=== PATIENT | female | born 1940 | race Caucasian/White ===

== ENCOUNTER 2022-04-12 11:33 | Inpatient (IN) | payer MEDICARE ==
--- NOTE | 2022-04-12 12:13 | ED ---
General Adult HPI - General Chief complaint: Weakness Stated complaint: Weakness Time Seen by Provider: 04/12/22 11:36 Source: patient, family, EMS, RN notes reviewed Mode of arrival: EMS Limitations: no limitations - History of Present Illness Initial comments: Patient is a pleasant 82-year-old female presenting to the emergency Department with general weakness. Patient is unable to get up and walk around the past one week. Patient does have recent diagnosis of sciatica approximately 10 days ago. Patient states bilateral sacral area with discomfort. Patient is unable to get out of bed and walk around. A ojeda has had decreased appetite and decreased oral intake. No isolated area of weakness. Patient has had a couple of falls over the past couple of days. Patient is on Coumadin secondary to history of atrial fibrillation. - Related Data Allergies Allergy/AdvReac Type Severity Reaction Status Date / Time Sulfa (Sulfonamide Allergy Unknown Verified 04/12/22 12:27 Antibiotics) Review of Systems ROS Statement: Those systems with pertinent positive or pertinent negative responses have been documented in the HPI. ROS Other: All systems not noted in ROS Statement are negative. Constitutional: Denies: fever Eyes: Denies: eye pain ENT: Denies: ear pain Respiratory: Denies: cough Cardiovascular: Denies: chest pain Endocrine: Reports: fatigue Gastrointestinal: Reports: as per HPI Genitourinary: Denies: dysuria Musculoskeletal: Reports: as per HPI Skin: Denies: rash Neurological: Reports: as per HPI. Denies: headache, confusion Past Medical History Past Medical History: Atrial Fibrillation, Hypertension History of Any Multi-Drug Resistant Organisms: None Reported Additional Past Surgical History / Comment(s): open heart, valve replacement Past Psychological History: No Psychological Hx Reported Smoking Status: Never smoker Past Alcohol Use History: Occasional Past Drug Use History: None Reported General Exam Limitations: no limitations General appearance: alert, in no apparent distress Head exam: Present: normocephalic Eye exam: Present: normal appearance, PERRL, EOMI ENT exam: Present: mucous membranes dry Neck exam: Present: normal inspection Respiratory exam: Present: normal lung sounds bilaterally Cardiovascular Exam: Present: tachycardia, irregular rhythm GI/Abdominal exam: Present: soft. Absent: tenderness Extremities exam: Present: pedal edema. Absent: calf tenderness Back exam: Present: other (General sacral tenderness) Neurological exam: Present: alert, oriented X3, CN II-XII intact Expanded Neurological exam: Present: protecting the airway Speech: Present: fluid speech Cranial nerves: EOM's Intact: Normal Motor strength exam: RUE: 5, LUE: 5, RLE: 2/1, LLE: 2/1 Eye Response: (4) open spontaneously Motor Response: (6) obeys commands Verbal Response: (5) oriented Psychiatric exam: Present: normal affect, normal mood Skin exam: Present: other (Right lower leg skin tear, appears to be healing appropriately) Course Vital Signs 04/12/22 11:35 Temperature 97.9 F Pulse Rate 112 H Respiratory 20 Rate Blood Pressure 139/98 EKG Findings - EKG Comments: EKG Findings:: A. fib with RVR, rate 118. QRS 84. QT 274. QTC 344. Normal axis. Normal QRS. Nonspecific T waves. Medical Decision Making - Medical Decision Making Patient reevaluated. Patient and family updated on results and plan. Case was discussed with Dr. Sierra, who does recommend 10 units of vitamin K IV. He states large toe secondary to patient being dehydrated and likely deficient with vitamin K. He also requests consult with orthopedics, Dr. Kirkland and CT of the pelvis. Patient reevaluated. Patient and family updated. Family refuses CT stating patient had one recently at [facility]. We are attempting to obtain results. - Lab Data Result diagrams: 04/12/22 12:56 04/12/22 12:56 Lab Results 04/12/22 04/12/22 04/12/22 Range/Units 12:56 12:56 12:56 WBC 19.9 H (3.8-10.6) k/uL RBC 3.27 L (3.80-5.40) m/uL Hgb 9.3 L (11.4-16.0) gm/dL Hct 30.1 L (34.0-46.0) % MCV 91.8 (80.0-100.0) fL MCH 28.4 (25.0-35.0) pg MCHC 30.9 L (31.0-37.0) g/dL RDW 14.6 (11.5-15.5) % Plt Count 167 (150-450) k/uL MPV 12.0 Neutrophils % (Manual) 87 % Band Neuts % (Manual) 1 % Lymphocytes % (Manual) 10 % Monocytes % (Manual) 2 % Neutrophils # (Manual) 17.50 H (1.3-7.7) k/uL Lymphocytes # (Manual) 1.99 (1.0-4.8) k/uL Monocytes # (Manual) 0.40 (0-1.0) k/uL Nucleated RBCs 0 (0-0) /100 WBC Manual Slide Review Performed Polychromasia Present Hypochromasia Marked PT >130.0 H (9.0-12.0) sec INR >10.0 H* (<1.2) APTT 60.9 H (22.0-30.0) sec Sodium 137 (137-145) mmol/L Potassium 4.9 (3.5-5.1) mmol/L Chloride 105 (98-107) mmol/L Carbon Dioxide 27 (22-30) mmol/L Anion Gap 5 mmol/L BUN 25 H (7-17) mg/dL Creatinine 0.86 (0.52-1.04) mg/dL Est GFR (CKD-EPI)AfAm 72 (>60 ml/min/1.73 sqM) Est GFR (CKD-EPI)NonAf 63 (>60 ml/min/1.73 sqM) Glucose 121 H (74-99) mg/dL Plasma Lactic Acid Jayce (0.7-2.0) mmol/L Calcium 8.9 (8.4-10.2) mg/dL Phosphorus 3.1 (2.5-4.5) mg/dL Magnesium 2.2 (1.6-2.3) mg/dL Total Bilirubin 1.6 H (0.2-1.3) mg/dL AST 71 H (14-36) U/L ALT 28 (4-34) U/L Alkaline Phosphatase 64 (38-126) U/L Troponin I (0.000-0.034) ng/mL Total Protein 5.8 L (6.3-8.2) g/dL Albumin 3.2 L (3.5-5.0) g/dL TSH 0.310 L (0.465-4.680) mIU/L Free T4 1.39 (0.78-2.19) ng/dL Free T3 pg/mL 3.1 (2.8-5.3) pg/ml 04/12/22 04/12/22 Range/Units 12:56 12:56 WBC (3.8-10.6) k/uL RBC (3.80-5.40) m/uL Hgb (11.4-16.0) gm/dL Hct (34.0-46.0) % MCV (80.0-100.0) fL MCH (25.0-35.0) pg MCHC (31.0-37.0) g/dL RDW (11.5-15.5) % Plt Count (150-450) k/uL MPV Neutrophils % (Manual) % Band Neuts % (Manual) % Lymphocytes % (Manual) % Monocytes % (Manual) % Neutrophils # (Manual) (1.3-7.7) k/uL Lymphocytes # (Manual) (1.0-4.8) k/uL Monocytes # (Manual) (0-1.0) k/uL Nucleated RBCs (0-0) /100 WBC Manual Slide Review Polychromasia Hypochromasia PT (9.0-12.0) sec INR (<1.2) APTT (22.0-30.0) sec Sodium (137-145) mmol/L Potassium (3.5-5.1) mmol/L Chloride (98-107) mmol/L Carbon Dioxide (22-30) mmol/L Anion Gap mmol/L BUN (7-17) mg/dL Creatinine (0.52-1.04) mg/dL Est GFR (CKD-EPI)AfAm (>60 ml/min/1.73 sqM) Est GFR (CKD-EPI)NonAf (>60 ml/min/1.73 sqM) Glucose (74-99) mg/dL Plasma Lactic Acid Jayce 1.7 (0.7-2.0) mmol/L Calcium (8.4-10.2) mg/dL Phosphorus (2.5-4.5) mg/dL Magnesium (1.6-2.3) mg/dL Total Bilirubin (0.2-1.3) mg/dL AST (14-36) U/L ALT (4-34) U/L Alkaline Phosphatase (38-126) U/L Troponin I 0.034 (0.000-0.034) ng/mL Total Protein (6.3-8.2) g/dL Albumin (3.5-5.0) g/dL TSH (0.465-4.680) mIU/L Free T4 (0.78-2.19) ng/dL Free T3 pg/mL (2.8-5.3) pg/ml - Radiology Data Radiology results: image reviewed (Sacral x-ray shows likely normal variant. Two-view chest x-ray shows cardiomegaly with pulmonary venous congestion.) Disposition Clinical Impression: Weakness, Coagulopathy, Atrial fibrillation with RVR Disposition: ADMITTED IP TO THIS HOSP Condition: Serious Is patient prescribed a controlled substance at d/c from ED?: No Referrals: Facundo Griffin MD [Primary Care Provider] - 1-2 days Time of Disposition: 14:48
[2022-04-12 13:16] LABS: HCT 30.1 % (34.0-46.0); HGB 9.3 gm/dL (11.4-16.0); Hypochromasia Marked; MCH 28.4 pg (25.0-35.0); MCHC 30.9 g/dL (31.0-37.0); MCV 91.8 fL (80.0-100.0); Platelet Count 167 k/uL (150-450); RBC 3.27 m/uL (3.80-5.40); RDW 14.6 % (11.5-15.5); WBC 19.9 k/uL (3.8-10.6)
[2022-04-12] MEDS ORDERED: MORPHINE SULFATE 4 MG/ML SYRINGE IVP STA (13:22)
--- NOTE | 2022-04-12 13:35 | XR ---
EXAMINATION TYPE: XR chest 2V DATE OF EXAM: 04/12/2022 COMPARISON: NONE HISTORY: Shortness of breath TECHNIQUE: Frontal and lateral views of the chest are obtained. FINDINGS: Scattered senescent parenchymal changes noted. Hyperinflation compatible with COPD. There is cardiomegaly with pulmonary venous congestion scattered interstitial edema. No focal consoli dation seen. Mediastinal structures are stable and grossly unremarkable. No evidence for hilar prominence. Degenerative changes dorsal spine. IMPRESSION: 1. There is cardiomegaly with pulmonary venous congestion scattered interstitial edema. No focal cons olidation seen.
--- NOTE | 2022-04-12 13:43 | XR ---
EXAMINATION TYPE: XR sacrum coccyx DATE OF EXAM: 04/12/2022 CLINICAL HISTORY: pain TECHNIQUE: Three views of the sacrum and coccyx are submitted. COMPARISON: None Sacral alae appear symmetric. Angulation at the sacrococcygeal level likely reflects a normal variant . Obvious displaced fracture not seen with certainty. Correlate clinically. Sacroiliac joints are wit hin normal limits. Visualized coccygeal segments are free of fracture or lesion. IMPRESSION: . Angulation at the sacrococcygeal level likely reflects a normal variant. Obvious displa sotero fracture not seen with certainty. Correlate clinically.
[2022-04-12 13:52] LABS: Albumin 3.2 g/dL (3.5-5.0); Calcium 8.9 mg/dL (8.4-10.2); Magnesium 2.2 mg/dL (1.6-2.3); Phosphorus 3.1 mg/dL (2.5-4.5); Potassium 4.9 mmol/L (3.5-5.1); Total Bilirubin 1.6 mg/dL (0.2-1.3); Total Protein 5.8 g/dL (6.3-8.2)
[2022-04-12 13:57] LABS: Partial Thromboplastin Time 60.9 sec (22.0-30.0); Prothrombin Time >130.0 sec (9.0-12.0)
[2022-04-12 13:58] LABS: INR >10.0 (<1.2)
[2022-04-12 14:07] LABS: Band Neutrophils % 1 %; Lymphocytes # (M) 1.99 k/uL (1.0-4.8); Neutrophils % (M) 87 %; Nucleated Red Blood Cells 0 /100 WBC (0-0); Total Cells Counted 100
[2022-04-12 14:08] LABS: T4, Free (Free Thyroxine) 1.39 ng/dL (0.78-2.19)
[2022-04-12 14:09] LABS: Polychromasia Present
[2022-04-12] MEDS ORDERED: DILTIAZEM 5 MG/ML 5 ML VIAL IVP STA (14:58)
[2022-04-12] MEDS ORDERED: PHYTONADIONE 2 MG in SODIUM CHLORIDE 0.9% 50 ML IVPB STA (14:58)
[2022-04-12] MEDS ORDERED: NALOXONE 0.4 MG/ML 1 ML VIAL IV PRN (14:58)
[2022-04-12] MEDS ORDERED: MORPHINE SULFATE 4 MG/ML SYRINGE IV PRN (14:58)
[2022-04-12] MEDS ORDERED: PANTOPRAZOLE 40 MG/10 ML VIAL IV SCH (15:00)
--- NOTE | 2022-04-12 16:04 | CT ---
EXAMINATION TYPE: CT pelvis w con DATE OF EXAM: 04/12/2022 COMPARISON: None HISTORY: Sacral pain, coagulopathy. CT DLP: 1632.7 mGycm Automated exposure control for dose reduction was used. Contrast enhanced CT of the pelvis was perfor med. CONTRAST: Performed with IV Contrast, patient injected with 100 mL of Isovue 370. FINDINGS: There is a large partially imaged partially septated cystic mass which may arise from the left ovary although difficult to state with certainty. A Uterus is displaced from left to right. Measurements as noted on the [id number]-lcud included at least 21.9 cm craniocaudal dimension by 14.2 cm AP dimension by 25 cm transverse dimension. 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 No evidence for free fluid. No h ydronephrosis. Degenerative changes lumbar spine. Sacrococcygeal angulation without fracture. No discrete fracture o f the pelvis. 1.1 cm left inguinal lymph node. IMPRESSION: There is a large partially imaged partially septated cystic mass which may arise from the left ovary although difficult to state with certainty. 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
[2022-04-12 20:10] LABS: Appearance,Urine Clear (Clear); Bilirubin,Urine Negative (Negative); Blood,Urine Negative (Negative); Color,Urine Yellow; Glucose,Urine (UA) Negative (Negative); Ketones,Urine Negative (Negative); Leukocyte Esterase,Urine Small (Negative); Nitrite,Urine Negative (Negative); PH, Urine 6.5 (5.0-8.0); Protein,Urine Trace (Negative); RBC,Urine 2 /hpf (0-5); Specific Gravity,Urine 1.032 (1.001-1.035); Squamous Epithelial Cell,Urine <1 /hpf (0-4); Urobilinogen,Urine <2.0 mg/dL (<2.0); WBC,Urine 16 /hpf (0-5)
[2022-04-12 20:49] LABS: INR >10.0 (<1.2); Prothrombin Time >130.0 sec (9.0-12.0)
[2022-04-12] MEDS: METOPROLOL SUCCINATE (ER) 100 MG TAB.ER.24H PO SCH (21:59)
[2022-04-12] MEDS ORDERED: PHYTONADIONE 10 MG in SODIUM CHLORIDE 0.9% 50 ML IVPB STA (22:02)
[2022-04-12] MEDS ORDERED: ACETAMINOPHEN TAB 325 MG TAB PO PRN (22:04)
[2022-04-12] MEDS ORDERED: TEMAZEPAM 15 MG CAP PO PRN (22:04)
[2022-04-12] MEDS ORDERED: ONDANSETRON 4 MG/2 ML VIAL IVP PRN (22:04)
[2022-04-12] MEDS ORDERED: LORazepam 0.5 MG TAB PO PRN (22:04)
[2022-04-12] MEDS ORDERED: LACTULOSE 20 GM/30 ML CUP PO PRN (22:04)
[2022-04-12] MEDS ORDERED: CALCIUM CARBONATE 500 MG CHEWABLE PO PRN (22:04)
--- NOTE | 2022-04-12 22:17 | P.HPIM ---
History of Present Illness H&P Date: 04/12/22 Chief Complaint: Weakness This is a 82-year-old patient who follows with Dr. Facundo Griffin. Chronic stable medical conditions include obesity, atrial fibrillation, hypertension. Patient lives alone. About 9 days ago patient had a sinus infection. Started with nasal drainage. She has been somewhat on the floor. Next morning she slipped and fell. Bumped her head pretty hard. Not able to get up. Was taken to [facility]. She had L4 on the right lower extremity and Sri stitches in there. She was sent home. Patient does state that she is chronically off-balance. Since her return to the house she has been pretty much in bed for last 7 days. Barely eating and drinking. Significant bruising. Patient is chronically hard of hearing as "chronic tinnitus. No chest pain or palpitation. Patient denies any headache. No change in vision. No changes speech. No focal weakness. Review of systems: GEN.: Tired decreased appetite EYES: None HEENT: Hard of hearing with hearing aids NECK: None RESPIRATORY: None CARDIOVASCULAR: None GASTROINTESTINAL: None GENITOURINARY: None MUSCULOSKELETAL: [Some joint pains LYMPHATICS: None HEMATOLOGICAL: None PSYCHIATRY: None NEUROLOGICAL: Chronically off-balance when walking Past medical history to include: Atrial fibrillation, hypertension, valve replacement Social history: Nonsmoker. Lives alone. Occasional alcohol. Family history: Reviewed, noncontributory to presentation Physical examination: VITAL SIGNS: 97.9, 120, 18, 1 39 x 98, 95% room air GENERAL: BMI 35.2, laying in bed and awake, tired. Scattered bruising EYES: Pupils equal. Conjunctiva normal. HEENT: External appearance of nose and ears normal, oral cavity grossly normal. NECK: JVD unable to assess; masses not palpable. HEART: Heart sounds irregular; no edema. LUNGS: Respiratory rate normal; clear to auscultation. ABDOMEN: Soft, nontender, liver spleen not palpable, no masses palpable. PSYCH: Alert and oriented x3; mood and affect normal. MUSCULOSKELETAL:No Clubbing/cyanosis;muscles-grossly intact. Evidence of OA EXTREMITIES: Wound on the right lower extremity, with dressing NEUROLOGICAL: Cranial nerves grossly intact; no facial asymmetry, power and sensation grossly intact. LYMPHATICS: No lymph nodes palpable in the axilla and neck INVESTIGATIONS, reviewed in the clinical context: WBC is 19.9 hemoglobin 9.3 platelets 167 INR greater than 10 potassium 4.9 creatinine 0.86 Troponin I 0.034, 0.030 TSH 0.3 EKG tracing personally reviewed by me-atrial fibrillation, rate 118 Chest x-ray film personally reviewed by me-cardiomegaly, some venous prominence. CT pelvis with contrast: Large septated cystic mass 21.9 x 14.2 cm x 25 cm. 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 Assessment and plan: -Persistent atrial fibrillation, now presenting with rapid ventricle rate Toprol-XL 100 mg a day -Acute congestive heart failure exacerbation possibly precipitated by atrial fibrillation IV Lasix 20 mg every 12. 2-D echocardiogram. -Coumadin toxicity with severe bruising. Also patient has not been eating for 10 days to make him more vitamin K deficient. Patient received 2 mg of vitamin K in the ER. We'll give 10 mg IV piggyback over 15 minutes. Follow INR -Essential hypertension Toprol-XL 100 mg a day -Obesity BMI 35.2 Weight loss pressures -Large left-sided ovarian mass suspected. Consult TOPSTITCHER LOCKSTITCH 10 mg vitamin K. Follow INR. 2-D echo. IV Lasix. Resume home medications. Fall precautions. PT OT. Care was discussed the patient. Toprol-XL. Consult orthopedic spine given fall. An blunt injury to the spine. Given the complexity and severity of patient's condition expect the patient to be in the hospital at least for 2 overnights Past Medical History Past Medical History: Atrial Fibrillation, Hypertension History of Any Multi-Drug Resistant Organisms: None Reported Additional Past Surgical History / Comment(s): open heart, valve replacement Past Psychological History: No Psychological Hx Reported Smoking Status: Never smoker Past Alcohol Use History: Occasional Past Drug Use History: None Reported Medications and Allergies Home Medications Medication Instructions Recorded Confirmed Type Furosemide [Lasix] 20 mg PO BID 04/12/22 04/12/22 History Ipratropium [place] 0.06%Nasal 2 spr EA NOSTRIL BID PRN 04/12/22 04/12/22 History [Atrovent Nasal 0.06%] Irbesartan [Avapro] 75 mg PO DAILY 04/12/22 04/12/22 History Metoprolol Succinate (ER) [Toprol 100 mg PO DAILY 04/12/22 04/12/22 History Xl] Potassium Chloride [Potassium 10 meq PO BID 04/12/22 04/12/22 History Chloride ER] Warfarin Sodium 4 mg PO HS 04/12/22 04/12/22 History Allergies Allergy/AdvReac Type Severity Reaction Status Date / Time Sulfa (Sulfonamide AdvReac Agitation Verified 04/12/22 15:03 Antibiotics) Physical Exam Vitals: Vital Signs Temp Pulse Resp BP 04/12/22 11:35 97.9 F 112 H 20 139/98 Intake and Output 04/12/22 04/12/22 04/12/22 06:59 14:59 22:59 Other: Weight 108 kg Results CBC & Chem 7: 04/12/22 12:56 04/12/22 12:56 Labs: Abnormal Lab Results - Last 24 Hours (Table) 04/12/22 04/12/22 04/12/22 Range/Units 12:56 12:56 12:56 WBC 19.9 H (3.8-10.6) k/uL RBC 3.27 L (3.80-5.40) m/uL Hgb 9.3 L (11.4-16.0) gm/dL Hct 30.1 L (34.0-46.0) % MCHC 30.9 L (31.0-37.0) g/dL Neutrophils # (Manual) 17.50 H (1.3-7.7) k/uL PT >130.0 H (9.0-12.0) sec INR >10.0 H* (<1.2) APTT 60.9 H (22.0-30.0) sec BUN 25 H (7-17) mg/dL Glucose 121 H (74-99) mg/dL Total Bilirubin 1.6 H (0.2-1.3) mg/dL AST 71 H (14-36) U/L Total Protein 5.8 L (6.3-8.2) g/dL Albumin 3.2 L (3.5-5.0) g/dL TSH 0.310 L (0.465-4.680) mIU/L
[2022-04-12] MEDS: FUROSEMIDE 10 MG/ML 2 ML VIAL IV SCH (22:29)
[2022-04-12] MEDS: traMADol 50 MG TAB PO PRN (22:32)
[2022-04-13] MEDS: METOPROLOL SUCCINATE (ER) 100 MG TAB.ER.24H PO SCH (08:48)
[2022-04-13] MEDS: FUROSEMIDE 10 MG/ML 2 ML VIAL IV SCH (08:48)
[2022-04-13 09:41] LABS: Calcium 8.3 mg/dL (8.4-10.2); Potassium 4.6 mmol/L (3.5-5.1)
[2022-04-13 09:45] LABS: INR 2.7 (<1.2); Prothrombin Time 26.4 sec (9.0-12.0)
[2022-04-13 10:21] LABS: Basophils # (A) 0.1 k/uL (0-0.2); Basophils % (A) 1 %; Eosinophils # (A) 0.1 k/uL (0-0.7); Eosinophils % (A) 1 %; HCT 25.8 % (34.0-46.0); Hypochromasia Marked; Lymphocytes # (A) 1.8 k/uL (1.0-4.8); Lymphocytes % (A) 9 %; MCH 28.1 pg (25.0-35.0); MCHC 30.2 g/dL (31.0-37.0); MCV 93.1 fL (80.0-100.0); Mean Platelet Volume 11.9; Monocytes # (A) 1.2 k/uL (0-1.0); Monocytes % (A) 6 %; Neutrophils # (A) 17.4 k/uL (1.3-7.7); Neutrophils % (A) 83 %; RBC 2.77 m/uL (3.80-5.40); WBC 20.9 k/uL (3.8-10.6)
[2022-04-13 10:24] LABS: HGB 7.8 gm/dL (11.4-16.0)
[2022-04-13] MEDS ORDERED: PHYTONADIONE 5 MG in SODIUM CHLORIDE 0.9% 50 ML IVPB STA (11:12)
[2022-04-13 11:13] LABS: Polychromasia Present
[2022-04-13 11:14] LABS: Platelet Count 139 k/uL (150-450); Poikilocytosis (M) Present
--- NOTE | 2022-04-13 11:17 | P.CNOR ---
History of Present Illness - HPI Consult date: 04/13/22 Consult reason: other History of present illness: Patient is a pleasant 82-year-old female who was seen and examined at bedside. Apparently patient has been having great difficulty mobilizing and had a couple of falls over the past few weeks. She fell about 9 days ago and is having pain around her lower back and which she describes as sciatica pain worse on the right than the left. She denies any specific neurologic loss but she feels that her legs have significant difficulty holding her up and they give way. She has history of right knee severe arthritis. She denies any history of sciatica in the past at her lower extremity. She denies any changes in bowel bladder function. She is on anticoagulants for chronic atrial fibrillation and has significant bruising diffusely of her arms chest and legs. She has a laceration right lower extremity and chronic edema. She has bandages intact lower extremity. Review of Systems As per HPI. She denies any chest pain shortness of breath. She denies any fevers chills. Denies any changes in bowel bladder function. She denies any ovarian issues or rigorous problems. She denies any prior surgery at her abdomen. Past Medical History Past Medical History: Atrial Fibrillation, Hypertension, Musculoskeletal Disorder Additional Past Medical History / Comment(s): History of severe arthritis at the right knee History of Any Multi-Drug Resistant Organisms: None Reported Past Surgical History: Cardiac Valve Replacement Additional Past Surgical History / Comment(s): open heart, valve replacement Past Psychological History: No Psychological Hx Reported Smoking Status: Never smoker Past Alcohol Use History: Occasional Past Drug Use History: None Reported Medications and Allergies Home Medications Medication Instructions Recorded Confirmed Type Furosemide [Lasix] 20 mg PO BID 04/12/22 04/12/22 History Ipratropium [place] 0.06%Nasal 2 spr EA NOSTRIL BID PRN 04/12/22 04/12/22 History [Atrovent Nasal 0.06%] Irbesartan [Avapro] 75 mg PO DAILY 04/12/22 04/12/22 History Metoprolol Succinate (ER) [Toprol 100 mg PO DAILY 04/12/22 04/12/22 History Xl] Potassium Chloride [Potassium 10 meq PO BID 04/12/22 04/12/22 History Chloride ER] Warfarin Sodium 4 mg PO HS 04/12/22 04/12/22 History Allergies Allergy/AdvReac Type Severity Reaction Status Date / Time Sulfa (Sulfonamide AdvReac Agitation Verified 04/12/22 15:03 Antibiotics) Physical Examination Osteopathic Statement: *. No significant issues noted on an osteopathic struc tural exam other than those noted in the History and Physical/Consult. - L Spine: dermatomal strength & reflexes bilateral Strength: hip flexion: 4/5 (At her low back she is nontender to palpation. There is no open wounds lacerations or abrasions. She has ecchymosis over her chest and arms. At her legs she is nontender with internal and external rotation at her hips. She has sustained dorsal to plantar flexion and EHL. She is able to move her) Strength: hip extension: 5/5 (She is able to move her hips and knees while in bed but has some difficulty and some global weakness with this there is no focal obvious deficit.) Results - Labs Labs: Abnormal Lab Results - Last 24 Hours (Table) 04/12/22 04/12/22 04/12/22 Range/Units 12:56 12:56 12:56 WBC 19.9 H (3.8-10.6) k/uL RBC 3.27 L (3.80-5.40) m/uL Hgb 9.3 L (11.4-16.0) gm/dL Hct 30.1 L (34.0-46.0) % MCHC 30.9 L (31.0-37.0) g/dL Neutrophils # (Manual) 17.50 H (1.3-7.7) k/uL PT >130.0 H (9.0-12.0) sec INR >10.0 H* (<1.2) APTT 60.9 H (22.0-30.0) sec BUN 25 H (7-17) mg/dL Glucose 121 H (74-99) mg/dL Calcium (8.4-10.2) mg/dL Total Bilirubin 1.6 H (0.2-1.3) mg/dL AST 71 H (14-36) U/L Total Protein 5.8 L (6.3-8.2) g/dL Albumin 3.2 L (3.5-5.0) g/dL TSH 0.310 L (0.465-4.680) mIU/L Urine Protein (Negative) Ur Leukocyte Esterase (Negative) Urine WBC (0-5) /hpf 04/12/22 04/12/22 04/13/22 Range/Units 20:01 20:01 08:38 WBC 20.9 H (3.8-10.6) k/uL RBC 2.77 L (3.80-5.40) m/uL Hgb 7.8 L D (11.4-16.0) gm/dL Hct 25.8 L (34.0-46.0) % MCHC 30.2 L (31.0-37.0) g/dL Neutrophils # (Manual) (1.3-7.7) k/uL PT >130.0 H (9.0-12.0) sec INR >10.0 H* (<1.2) APTT (22.0-30.0) sec BUN (7-17) mg/dL Glucose (74-99) mg/dL Calcium (8.4-10.2) mg/dL Total Bilirubin (0.2-1.3) mg/dL AST (14-36) U/L Total Protein (6.3-8.2) g/dL Albumin (3.5-5.0) g/dL TSH (0.465-4.680) mIU/L Urine Protein Trace H (Negative) Ur Leukocyte Esterase Small H (Negative) Urine WBC 16 H (0-5) /hpf 04/13/22 04/13/22 Range/Units 08:38 08:38 WBC (3.8-10.6) k/uL RBC (3.80-5.40) m/uL Hgb (11.4-16.0) gm/dL Hct (34.0-46.0) % MCHC (31.0-37.0) g/dL Neutrophils # (Manual) (1.3-7.7) k/uL PT 26.4 H (9.0-12.0) sec INR 2.7 H (<1.2) APTT (22.0-30.0) sec BUN 32 H (7-17) mg/dL Glucose (74-99) mg/dL Calcium 8.3 L (8.4-10.2) mg/dL Total Bilirubin (0.2-1.3) mg/dL AST (14-36) U/L Total Protein (6.3-8.2) g/dL Albumin (3.5-5.0) g/dL TSH (0.465-4.680) mIU/L Urine Protein (Negative) Ur Leukocyte Esterase (Negative) Urine WBC (0-5) /hpf Microbiology - Last 24 Hours (Table) 04/12/22 20:01 Urine Culture - Preliminary Urine,Voided H & H 04/12/22 04/13/22 Range/Units 12:56 08:38 Hgb 9.3 L 7.8 L D (11.4-16.0) gm/dL Hct 30.1 L 25.8 L (34.0-46.0) % Coagulation 04/12/22 04/12/22 04/13/22 Range/Units 12:56 20:01 08:38 INR >10.0 H* >10.0 H* 2.7 H (<1.2) Result Diagrams: 04/13/22 08:38 04/13/22 08:38 - Diagnostic results CT Scan - lumbar: report reviewed (Computed tomography scan of the pelvis is reviewed. I don't see any obvious fracture or sacrum or lower lumbar spine. She does have some degenerative changes at her lumbar spine. 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 I think it is okay for her to try to mobilize with physical therapy and try to ambulate weightbearing as tolerated. I do not have plans for surgical intervention at her lumbar spine. The patient has a large ovarian mass which may be neoplastic. The history and physical had mentioned consult torque however there was not a order for that I will go ahead and put that order in for a PAPER BALER consultation to assess the mass. The mass may be putting some pressure on her psoas which could be contributing to her lower extremity function as well. The patient has significant ecchymosis and is working with medicine and cardiology for appropriate adjustments with her blood thinners. She'll continue medical management as well.
--- NOTE | 2022-04-13 15:43 | P.PN ---
Progress Note - Text Progress Note Date: 04/13/22 Chief Complaint: Weakness This is a 82-year-old patient who follows with Dr. Facundo Griffin. Chronic stable medical conditions include obesity, atrial fibrillation, hypertension. Patient lives alone. About 9 days ago patient had a sinus infection. Started with nasal drainage. She has been somewhat on the floor. Next morning she slipped and fell. Bumped her head pretty hard. Not able to get up. Was taken to [facility]. She had L4 on the right lower extremity and Sri stitches in there. She was sent home. Patient does state that she is chronically off-balance. Since her return to the house she has been pretty much in bed for last 7 days. Barely eating and drinking. Significant bruising. Patient is chronically hard of hearing as "chronic tinnitus. No chest pain or palpitation. Patient denies any headache. No change in vision. No changes speech. No focal weakness. Admitted with acute medical asthenia, Coumadin toxicity. April 13: Received 12 mg of vitamin K last night. Today's has enlarging hematoma on the right chest wall. INR down to 2.7. Cardiology give a further 5 mg vitamin K. 2 units of fresh frozen plasma also ordered. Care was discussed at length with the patient and daughter the bedside. Patient does state that in the past she's had a mitral valve and tricuspid valve repair and big valve replacement of the aortic valve. Also had atrial flutter fibrillation for which she is on anticoagulation. Eating better. Looking into rehab. Seen by from orthopedics. Remains in A. fib with a heart rate from 100. Active Medications Acetaminophen (Acetaminophen Tab 325 Mg Tab) 650 mg PO Q6HR PRN PRN Reason: Mild Pain or Fever > 100.5 Calcium Carbonate/Glycine (Calcium Carbonate 500 Mg Chewable) 1,000 mg PO Q4HR PRN PRN Reason: Dyspepsia Furosemide (Furosemide 40 Mg Tab) 40 mg PO DAILY HAIM Lactulose (Lactulose 20 Gm/30 Ml Cup) 20 gm PO DAILY PRN PRN Reason: Constipation Lorazepam (Lorazepam 0.5 Mg Tab) 0.5 mg PO Q6HR PRN PRN Reason: Anxiety Metoprolol Tartrate (Metoprolol Tartrate 50 Mg Tab) 50 mg PO TID HAIM Naloxone HCl (Naloxone 0.4 Mg/Ml 1 Ml Vial) 0.2 mg IV Q2M PRN PRN Reason: Opioid Reversal Ondansetron HCl (Ondansetron 4 Mg/2 Ml Vial) 4 mg IVP Q8HR PRN PRN Reason: Nausea And Vomiting Temazepam (Temazepam 15 Mg Cap) 15 mg PO HS PRN PRN Reason: Insomnia Tramadol HCl (Tramadol 50 Mg Tab) 50 mg PO Q6H PRN PRN Reason: Moderate Pain Last Admin: 04/12/22 22:32 Dose: 50 mg Past medical history to include: Atrial fibrillation, hypertension, valve replacement Social history: Nonsmoker. Lives alone. Occasional alcohol. Family history: Reviewed, noncontributory to presentation Physical examination: VITAL SIGNS: 97.7, 109, 16, 120/75, 97% room air GENERAL: laying in bed and awake, Scattered bruising DERMATOLOGICAL: Large right chest wall hematoma. EYES: Pupils equal. Conjunctiva normal. HEENT: External appearance of nose and ears normal, oral cavity grossly normal. NECK: JVD unable to assess; masses not palpable. HEART: Heart sounds irregular; no edema. LUNGS: Respiratory rate normal; clear to auscultation. ABDOMEN: Soft, nontender, liver spleen not palpable, no masses palpable. PSYCH: Alert and oriented x3; mood and affect normal. MUSCULOSKELETAL:No Clubbing/cyanosis;muscles-grossly intact. Evidence of OA EXTREMITIES: Wound on the right lower extremity, with dressing INVESTIGATIONS, reviewed in the clinical context: April 13: White count 20.9 hemoglobin 7.8 platelets 139 INR 2.7 potassium 4.6 creatinine 1.0 WBC is 19.9 hemoglobin 9.3 platelets 167 INR greater than 10 potassium 4.9 creatinine 0.86 Troponin I 0.034, 0.030 TSH 0.3 EKG tracing personally reviewed by me-atrial fibrillation, rate 118 Chest x-ray film personally reviewed by me-cardiomegaly, some venous prominence. CT pelvis with contrast: Large septated cystic mass 21.9 x 14.2 cm x 25 cm. 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 Assessment and plan: -Persistent atrial fibrillation, presenting with rapid ventricle rate: Heart rate around 100 this morning. Lupus increased to 50 mg 3 times a day. -Acute congestive heart failure exacerbation possibly precipitated by atrial fibrillation: Better By mouth Lasix 40 mg daily. 2-D echocardiogram. -History of mitral and tricuspid valve repair. Aortic valve replacement with pig valve. -Coumadin toxicity with severe bruising/right chest wall hematoma. Received 12 mg of vitamin K yesterday, 5 mg daily. 2 units of FFP ordered today. -Large hematoma right chest wall from Coumadin toxicity and fall Skin marked. Consult vascular -Acute blood loss anemia from hematoma. Hemodynamically stable. Follow H&H -Essential hypertension Toprol-XL 100 mg a day -Obesity BMI 35.2 Weight loss pressures -Large left-sided ovarian mass suspected. Consult [employer] EM[employer]ATE -Acute on chronic medical debility [employer] consult. 2 units of FFP. Dose of Lopressor increased. Care was discussed with the patient and daughter the bedside. Follow H&H
--- NOTE | 2022-04-13 15:51 | US ---
EXAMINATION TYPE: US pelvis complete transvag DATE OF EXAM: 04/13/2022 COMPARISON: CT 2021 CLINICAL HISTORY: pelvic mass. Pelvic mass seen on CT TECHNIQUE: . Transabdominal sonographic images of the pelvis were acquired. Exam done portable Exam done with patient laying on her side - refused to lay flat or lay on her back Bladder not full - ellington catheter 1. Uterus: not seen 2. Endometrium: not seen 3. Right Ovary: not seen 4. Left Ovary: not seen 5. Bilateral Adnexa: wnl 6. Posterior cul-de-sac: wnl 2.5.4 x 12.5cm complex mass seen midline pelvis extending upward to mid/upper abdomen - unable to d etermine etiology IMPRESSION: 1. 12.5 x 25.4 cm partially cystic mass involving the pelvis corresponding to the CT abnormality. Wit h consider tubo-ovarian etiology most likely in the differential diagnosis. Other etiologies not excl uded. Correlation with tumor serum markers recommended.
--- NOTE | 2022-04-13 16:29 | P.GSCN ---
History of Present Illness Consult date: 04/13/22 Reason for Consult: Chest hematoma Requesting physician: Greg Sierra History of present illness: This is a a pleasant 82-year-old female who presented to the emergency department yesterday with complaints of generalized weakness. Apparently she's not been able to get up and walk around in the last 1 week duration. She did have recent fall about a week to 2 weeks ago has a laceration with sutures to her right lower extremity. She came in with multiple bruises. She is on Coumadin for atrial fibrillation and states she has been taking her medication however has not been eating well. She was noted to have a supratherapeutic INR of greater than 10. She was given vitamin K repeat INR 2.7. She was also noted to be anemic on admission with a hemoglobin of 9.3 with a drop today to 7.8. She states that she did not have any recent falls in the last couple of days. Noticed increased bruising along her chest wall. She currently denies any shortness of breath or chest pain. Does have pain in her back. Denies any abdominal pain, nausea or vomiting. She's been afebrile. Labs: WBC 20.9 hemoglobin 7.8 hematocrit 25.8 platelet count 139,000 INR 2.7 sodium 137 potassium 4.6 BUN 32 creatinine 1.0 BNP 4940 Imaging: Chest x-ray reports cardiomegaly with pulmonary venous congestion scattered interstitial edema. No focal consolidation seen Sacrum and coccyx x-ray angulation at the sacrooccygeal level likely reflects normal variant. Obvious displaced fracture not seen with certainty. Correlate clinically. CT pelvis with contrast reports large partially imaged partially septated cystic mass which may arise from the left ovary although difficult to state with certainty. 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 With consider tubo-ovarian etiology most likely in the differential diagnosis. Other etiologies not excluded. Correlation with tumor serum markers recommended Review of Systems A 14 point review systems was completed all pertinent positives and negatives as stated in the HPI. Past Medical History Past Medical History: Atrial Fibrillation, Hypertension, Musculoskeletal Disorder Additional Past Medical History / Comment(s): History of severe arthritis at the right knee History of Any Multi-Drug Resistant Organisms: None Reported Past Surgical History: Cardiac Valve Replacement Additional Past Surgical History / Comment(s): open heart, valve replacement Past Psychological History: No Psychological Hx Reported Smoking Status: Never smoker Past Alcohol Use History: Occasional Past Drug Use History: None Reported Medications and Allergies Home Medications Medication Instructions Recorded Confirmed Type Furosemide [Lasix] 20 mg PO BID 04/12/22 04/12/22 History Ipratropium [place] 0.06%Nasal 2 spr EA NOSTRIL BID PRN 04/12/22 04/12/22 History [Atrovent Nasal 0.06%] Irbesartan [Avapro] 75 mg PO DAILY 04/12/22 04/12/22 History Metoprolol Succinate (ER) [Toprol 100 mg PO DAILY 04/12/22 04/12/22 History Xl] Potassium Chloride [Potassium 10 meq PO BID 04/12/22 04/12/22 History Chloride ER] Warfarin Sodium 4 mg PO HS 04/12/22 04/12/22 History Allergies Allergy/AdvReac Type Severity Reaction Status Date / Time Sulfa (Sulfonamide AdvReac Agitation Verified 04/12/22 15:03 Antibiotics) Surgical - Exam Vital Signs Temp Pulse Resp BP 97.9 F 112 H 20 139/98 04/12/22 11:35 04/12/22 11:35 04/12/22 11:35 04/12/22 11:35 General appearance: The patient is alert, oriented, appears in no acute distress. HET: Head is normocephalic and atraumatic. Pupils are equal and reactive. Neck: Supple without lymphadenopathy. Trachea midline. No audible carotid bruit. Heart: S1 S2. Regular rate and rhythm. Lungs: Clear to auscultation bilaterally. Chest: Chest wall with normal expansion. Significant bruising and hematoma noted on the chest greatest on the left chest wall and breast. Abdomen: Soft, nontender, nondistended. Extremities: Bilateral lower extremity edema. Dressing to the right lower extremity. Multiple bruises on extremities. Neurological: No focal deficits. Strength and sensation are grossly intact. Results - Labs 04/13/22 08:38 04/13/22 08:38 Abnormal Lab Results - Last 24 Hours (Table) 04/12/22 04/12/22 04/13/22 Range/Units 20:01 20:01 08:38 WBC 20.9 H (3.8-10.6) k/uL RBC 2.77 L (3.80-5.40) m/uL Hgb 7.8 L D (11.4-16.0) gm/dL Hct 25.8 L (34.0-46.0) % MCHC 30.2 L (31.0-37.0) g/dL Plt Count 139 L (150-450) k/uL Neutrophils # 17.4 H (1.3-7.7) k/uL Monocytes # 1.2 H (0-1.0) k/uL PT >130.0 H (9.0-12.0) sec INR >10.0 H* (<1.2) BUN (7-17) mg/dL Calcium (8.4-10.2) mg/dL Urine Protein Trace H (Negative) Ur Leukocyte Esterase Small H (Negative) Urine WBC 16 H (0-5) /hpf 04/13/22 04/13/22 Range/Units 08:38 08:38 WBC (3.8-10.6) k/uL RBC (3.80-5.40) m/uL Hgb (11.4-16.0) gm/dL Hct (34.0-46.0) % MCHC (31.0-37.0) g/dL Plt Count (150-450) k/uL Neutrophils # (1.3-7.7) k/uL Monocytes # (0-1.0) k/uL PT 26.4 H (9.0-12.0) sec INR 2.7 H (<1.2) BUN 32 H (7-17) mg/dL Calcium 8.3 L (8.4-10.2) mg/dL Urine Protein (Negative) Ur Leukocyte Esterase (Negative) Urine WBC (0-5) /hpf Microbiology - Last 24 Hours (Table) 04/12/22 20:01 Urine Culture - Preliminary Urine,Voided Diabetes panel 04/13/22 Range/Units 08:38 Sodium 137 (137-145) mmol/L Potassium 4.6 (3.5-5.1) mmol/L Chloride 105 (98-107) mmol/L Carbon Dioxide 25 (22-30) mmol/L BUN 32 H (7-17) mg/dL Creatinine 1.00 (0.52-1.04) mg/dL Glucose 98 (74-99) mg/dL Calcium 8.3 L (8.4-10.2) mg/dL Calcium panel 04/13/22 Range/Units 08:38 Calcium 8.3 L (8.4-10.2) mg/dL Pituitary panel 04/13/22 Range/Units 08:38 Sodium 137 (137-145) mmol/L Potassium 4.6 (3.5-5.1) mmol/L Chloride 105 (98-107) mmol/L Carbon Dioxide 25 (22-30) mmol/L BUN 32 H (7-17) mg/dL Creatinine 1.00 (0.52-1.04) mg/dL Glucose 98 (74-99) mg/dL Calcium 8.3 L (8.4-10.2) mg/dL Adrenal panel 04/13/22 Range/Units 08:38 Sodium 137 (137-145) mmol/L Potassium 4.6 (3.5-5.1) mmol/L Chloride 105 (98-107) mmol/L Carbon Dioxide 25 (22-30) mmol/L BUN 32 H (7-17) mg/dL Creatinine 1.00 (0.52-1.04) mg/dL Glucose 98 (74-99) mg/dL Calcium 8.3 L (8.4-10.2) mg/dL - Imaging Chest x-ray: report reviewed CT scan - pelvis: report reviewed US - pelvic: report reviewed Assessment and Plan Assessment: 1. Chest wall hematoma 2. Supratherapeutic INR 3. Normocytic normochromic anemia 4. Weakness 5. Inability to ambulate 6. Ovarian mass 7. History of recent fall 8. History of atrial fibrillation on coumadin Plan: 1. Continue symptomatic and supportive care 2. Apply ice packs to chest wall hematoma 3. Daily CBC, transfuse for hemoglobin less than 7 4. Hold Coumadin 5. Continue to treat supratherapeutic INR 6. No surgical intervention indicated at this time, continue to monitor hematoma 7. Continue medical management Thank you for this consultation, we will continue to follow. The impression and plan of care has been dictated as directed. Dr. Nelson I performed a history and examination of this patient, discussed the same with the dictator. I agree with the dictator's note ,documented as a scribe. Any additional findings or plans will be noted.
--- NOTE | 2022-04-13 17:21 | P.OBCN ---
History of Present Illness Consult date: 04/13/22 Reason for consult: pelvic mass (21 cm mass appreciated with septation) Chief complaint: ovarian mass with septation History of present illness: This is an 82-year-old female G0 that presented to the hospital on 04/12 after a fall at home. Patient does live alone with a family member, her niece that addresses her as mom checking and on her consistently. Her niece states that she has had 2 falls. Most recently about 9 days ago patient self diagnosed herself with a sinus infection and then noted increasing sciatica pain, she became weak and her niece was behind her as she felt the ground. He states that she fell twice that day. Patient was then taken to the hospital. Patient and CAT scan at the hospital revealing a large pelvic mass, 21x [id number]. the uterus is noted to be displaced left to right, on images. 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 History is taken from her niece. She states she is unsure when she went through menopause. Her knees states that about 2 weeks ago she was ambulating without difficulty some assistance was needed, mentation was normal. It is just since this admission that her mentation has decreased significantly along with her mobility. Review of Systems Constitutional: Reports fatigue Cardiovascular: Reports leg edema Respiratory: Denies dyspnea Past Medical History Past Medical History: Atrial Fibrillation, Hypertension, Musculoskeletal Disorder Additional Past Medical History / Comment(s): History of severe arthritis at the right knee History of Any Multi-Drug Resistant Organisms: None Reported Past Surgical History: Cardiac Valve Replacement Additional Past Surgical History / Comment(s): open heart, valve replacement Past Psychological History: No Psychological Hx Reported Smoking Status: Never smoker Past Alcohol Use History: Occasional Past Drug Use History: None Reported Medications and Allergies Home Medications Medication Instructions Recorded Confirmed Type Furosemide [Lasix] 20 mg PO BID 04/12/22 04/12/22 History Ipratropium [place] 0.06%Nasal 2 spr EA NOSTRIL BID PRN 04/12/22 04/12/22 History [Atrovent Nasal 0.06%] Irbesartan [Avapro] 75 mg PO DAILY 04/12/22 04/12/22 History Metoprolol Succinate (ER) [Toprol 100 mg PO DAILY 04/12/22 04/12/22 History Xl] Potassium Chloride [Potassium 10 meq PO BID 04/12/22 04/12/22 History Chloride ER] Warfarin Sodium 4 mg PO HS 04/12/22 04/12/22 History Allergies Allergy/AdvReac Type Severity Reaction Status Date / Time Sulfa (Sulfonamide AdvReac Agitation Verified 04/12/22 15:03 Antibiotics) Exam Osteopathic Statement: *. No significant issues noted on an osteopathic structural exam other than those noted in the History and Physical/Consult. Vital Signs Temp Pulse Pulse Resp BP BP Pulse Ox 04/13/22 13:05 97.7 F 109 H 16 120/75 97 04/13/22 08:31 98.0 F 107 H 16 116/62 93 L 04/13/22 04:00 98.0 F 109 H 16 120/74 95 04/13/22 02:00 120 H 18 04/12/22 22:20 97.9 F 120 H 18 117/67 94 L 04/12/22 19:00 114 H 18 154/92 Intake and Output 04/13/22 04/13/22 04/13/22 06:59 14:59 22:59 Other: Voiding Method External Catheter External Catheter Weight 106.5 kg Limited exam due to patient discomfort, on inspection of the patient she is her right side with a large amount of ecchymosis noted on her shoulder through her on her wrist and hand. Results Result Diagrams: 04/13/22 08:38 04/13/22 08:38 Abnormal Lab Results - Last 24 Hours (Table) 04/12/22 04/12/22 04/13/22 Range/Units 20:01 20:01 08:38 WBC 20.9 H (3.8-10.6) k/uL RBC 2.77 L (3.80-5.40) m/uL Hgb 7.8 L D (11.4-16.0) gm/dL Hct 25.8 L (34.0-46.0) % MCHC 30.2 L (31.0-37.0) g/dL Plt Count 139 L (150-450) k/uL Neutrophils # 17.4 H (1.3-7.7) k/uL Monocytes # 1.2 H (0-1.0) k/uL PT >130.0 H (9.0-12.0) sec INR >10.0 H* (<1.2) BUN (7-17) mg/dL Calcium (8.4-10.2) mg/dL Urine Protein Trace H (Negative) Ur Leukocyte Esterase Small H (Negative) Urine WBC 16 H (0-5) /hpf 04/13/22 04/13/22 Range/Units 08:38 08:38 WBC (3.8-10.6) k/uL RBC (3.80-5.40) m/uL Hgb (11.4-16.0) gm/dL Hct (34.0-46.0) % MCHC (31.0-37.0) g/dL Plt Count (150-450) k/uL Neutrophils # (1.3-7.7) k/uL Monocytes # (0-1.0) k/uL PT 26.4 H (9.0-12.0) sec INR 2.7 H (<1.2) BUN 32 H (7-17) mg/dL Calcium 8.3 L (8.4-10.2) mg/dL Urine Protein (Negative) Ur Leukocyte Esterase (Negative) Urine WBC (0-5) /hpf Microbiology - Last 24 Hours (Table) 04/12/22 20:01 Urine Culture - Preliminary Urine,Voided Assessment and Plan (1) Pelvic mass Current Visit: Yes Status: Acute Code(s): R19.00 - INTRA-ABD AND PELVIC SWELLING, MASS AND LUMP, UNSP SITE SNOMED Code(s): 48952250 Plan: 82-year-old 0 with incidental finding of large pelvic mass on computed tomography scan. Patient had a few falls at home presented to the hospital computed tomography scan was performed with above findings. Discussion with patient's family member "niece" about possibility of treatment. She believes they would not proceed with surgical intervention. Oval 1 was ordered, we'll need to await results. A test was explained to the niece and questions were answered. Discussion with her neice regarding surgical options, once again she states she doesn't believe she would proceed with these. I would like to follow-up with then raised regarding her oval 1 results, she is asked to call the office in approximately 2 weeks to discuss these results. Thank you for the consult, if you have any further questions regarding this patient's care please feel free to reach out
[2022-04-13 17:22] LABS: HCT 25.9 % (34.0-46.0); HGB 7.9 gm/dL (11.4-16.0); Hypochromasia Marked; MCH 28.8 pg (25.0-35.0); MCHC 30.7 g/dL (31.0-37.0); MCV 93.9 fL (80.0-100.0); Mean Platelet Volume 11.2; Platelet Count 217 k/uL (150-450); RBC 2.75 m/uL (3.80-5.40); RDW 15.5 % (11.5-15.5); WBC 24.6 k/uL (3.8-10.6)
--- NOTE | 2022-04-13 19:25 | CONS ---
CONSULTATION This is an 82-year-old lady who has her health care at [facility] under the care of Dr. Griffin and a cut off saw operator in the [place] area whose name she does not remember. She came to the emergency room with generalized weakness, unable to get up and walk. She has been having some sciatica for 10 days and she has bilateral sacral discomfort. After she came here to the hospital, she had bruising all over her body, including the chest, the neck, the arms and everywhere, and her INR was more than 10.0. She received two doses of vitamin K and her INR today is 2.7. She has chronic atrial fibrillation. She is status post aortic valve replacement with mitral valve repair done more than 10 years ago; details unavailable. She has no coronary disease. She follows up with her PCP for PT/INR checks. However, she has severe coagulopathy and unfortunately her hemoglobin has dropped nearly 2 grams and there is extensive bruising all over the body and she has kiran subcutaneous hematoma over her left breast. She is resting at the time of my evaluation. She is not in any significant distress. PAST MEDICAL HISTORY: 1. Chronic atrial fibrillation with a variable ventricular rate. 2. History of aortic valve replacement with a bioprosthetic valve and mitral valve repair. 3. History of hypertension. 4. History of diastolic heart failure. PHYSICAL EXAMINATION: On examination, blood pressure is 118/60, pulse rate is about 110, irregular. HEENT unremarkable. Fundus was not examined by me. Neck is supple. There is JVD of 1 cm. No carotid bruit. Heart exam reveals S1, S2 with irregular rhythm, short systolic murmur at the base and also left sternal border. There is extensive bruising. There is a subcutaneous hematoma over her left breast and in the left anterior chest wall. Abdomen has a lot of bruising. Lower extremities reveal diminished pulses. Central nervous system grossly no focal deficits. EKG revealed atrial fibrillation, moderate ventricular rate, nonspecific ST-T changes. LABORATORY DATA: Laboratory data revealed an initial hemoglobin of 9.3, repeat hemoglobin of 7.8. Initial INR of more than 10; after two dose of vitamin K, INR is 2.7. IMPRESSION: 1. Coagulopathy with chest wall hematoma, subcutaneous hematoma. 2. Chronic atrial fibrillation. 3. Status post aortic valve replacement and mitral valve repair. She has a tissue valve. This was done at [facility] more than 10 years ago; details unavailable. RECOMMENDATIONS: I explained to the patient the concerns and issues that we have with her coagulopathy. I am recommending that we will give her one more dose of vitamin K 5 mg subcutaneously, place her on metoprolol tartrate 50 mg t.i.d. for rate control, Lasix 40 mg every morning. Echocardiogram to assess LV function . We will monitor her hemoglobin closely. I discussed my thoughts in detail with the patient and daughter. Prognosis is guarded. MMODL / IJN: [id number] /
[2022-04-13] MEDS: traMADol 50 MG TAB PO PRN (22:38)
--- NOTE | 2022-04-14 05:13 | P.CONS ---
History of Present Illness - Chief Complaint Medical debility - History of Present Illness I had the opportunity to see patient for inpatient rehab consultation with regard to medical debility. Patient admitted to Dr. Sierra April 12 with generalized weakness of one week's duration. Noted coagulopathy, atrial fibrillation with RVR. Seen by Dr. Kirkland who doubts spinal fracture. Computed tomography scan of pelvis demonstrates left ovarian large cystic mass. Sacrum and coccyx x-ray demonstrates normal variant sacrococcygeal ligament. Chest x- ray with cardiomegaly and congestion. Has started therapy. PT reports maximal to total assistance for bed mobility. OT reports independent for feeding, s upervision for grooming. Unable to participate with lower dressing toileting or functional mobility. Both therapies recommending SNF placement. Previous functional history unobtainable from patient. Review of Systems Review of systems: ENT: Denies sneezes or discharge. Eyes: Denies discharge or photophobia. Cardiac: Denies chest pain or palpitation. Pulmonary: Denies cough or shortness of breath. Breast: Denies discharge or lumps. Gastrointestinal: Denies nausea, emesis, constipation, diarrhea. Genitourinary: Denies discharge or frequency. Musculoskeletal: Denies muscle or bone aches. Neurologic: Sleepiness/lethargy and generalized weakness. Endocrine: Denies shakes or sweats. Oncology: Denies cancers. Dermatologic: Denies rash, itching, pruritus. ALLERGY/immunology: Denies sneezes, rashes. Past Medical History Past Medical History: Atrial Fibrillation, Hypertension, Musculoskeletal Disorder Additional Past Medical History / Comment(s): History of severe arthritis at the right knee History of Any Multi-Drug Resistant Organisms: None Reported Past Surgical History: Cardiac Valve Replacement Additional Past Surgical History / Comment(s): open heart, valve replacement Past Psychological History: No Psychological Hx Reported Smoking Status: Never smoker Past Alcohol Use History: Occasional Past Drug Use History: None Reported Medications and Allergies Home Medications Medication Instructions Recorded Confirmed Type Furosemide [Lasix] 20 mg PO BID 04/12/22 04/12/22 History Ipratropium [place] 0.06%Nasal 2 spr EA NOSTRIL BID PRN 04/12/22 04/12/22 History [Atrovent Nasal 0.06%] Irbesartan [Avapro] 75 mg PO DAILY 04/12/22 04/12/22 History Metoprolol Succinate (ER) [Toprol 100 mg PO DAILY 04/12/22 04/12/22 History Xl] Potassium Chloride [Potassium 10 meq PO BID 04/12/22 04/12/22 History Chloride ER] Warfarin Sodium 4 mg PO HS 04/12/22 04/12/22 History Allergies Allergy/AdvReac Type Severity Reaction Status Date / Time Sulfa (Sulfonamide AdvReac Agitation Verified 04/12/22 15:03 Antibiotics) Physical Exam Vitals: Vital Signs Temp Pulse Pulse Resp BP BP Pulse Ox 04/14/22 04:00 98.2 F 99 18 117/76 91 L 04/14/22 02:22 98.2 F 96 18 102/63 94 L 04/14/22 02:00 18 04/14/22 00:50 97 18 107/61 95 04/14/22 00:40 98.4 F 90 18 107/67 96 04/14/22 00:28 91 18 102/63 93 L 04/13/22 23:37 98.1 F 90 20 109/57 04/13/22 23:07 111 H 18 114/70 04/13/22 22:57 98.4 F 117 H 20 116/68 04/13/22 20:00 98.4 F 120 H 18 114/74 94 L 04/13/22 17:11 98.2 F 119 H 16 116/62 99 04/13/22 13:05 97.7 F 109 H 16 120/75 97 04/13/22 08:31 98.0 F 107 H 16 116/62 93 L Intake and Output 04/13/22 04/13/22 04/14/22 14:59 22:59 06:59 Intake Total 0 433 Output Total 900 400 Balance -900 33 Intake: Blood Product 0 433 Ffp 24 Pher Acda Unit 0 217 [id number] Ffp 24 Pher Acda Unit 216 [id number] Output: Urine 900 400 Other: Voiding Method External Catheter External Catheter External Catheter Weight 106.5 kg Skin: Good color, texture, turgor. General: Medium build and comfortable appearance. Head: Normocephalic, atraumatic. Eyes: Symmetric. Pupils equal round. Ears: Symmetric. Hearing within normal limits. Mouth: Clear. Neck: Supple. Carotid without bruit. Cardiac: Regular rate and rhythm. Lungs: Clear anteriorly and posteriorly. Abdomen: Soft active nontender. Extremities: Normal tone. Neurological: Mental status: Sleepiness/lethargy. Cranial nerves: Symmetric facial tone and trapezius. Motor/sensation: Poor response to noxious stimulus locally. DTRs: Symmetric and equal throughout. Mobility: Unable to participate with bed mobility. Results CBC & Chem 7: 04/13/22 16:48 04/13/22 08:38 Labs: Abnormal Lab Results - Last 24 Hours (Table) 04/13/22 04/13/22 04/13/22 Range/Units 08:38 08:38 08:38 WBC 20.9 H (3.8-10.6) k/uL RBC 2.77 L (3.80-5.40) m/uL Hgb 7.8 L D (11.4-16.0) gm/dL Hct 25.8 L (34.0-46.0) % MCHC 30.2 L (31.0-37.0) g/dL Plt Count 139 L (150-450) k/uL Neutrophils # 17.4 H (1.3-7.7) k/uL Monocytes # 1.2 H (0-1.0) k/uL PT 26.4 H (9.0-12.0) sec INR 2.7 H (<1.2) BUN 32 H (7-17) mg/dL Calcium 8.3 L (8.4-10.2) mg/dL 04/13/22 Range/Units 16:48 WBC 24.6 H (3.8-10.6) k/uL RBC 2.75 L (3.80-5.40) m/uL Hgb 7.9 L (11.4-16.0) gm/dL Hct 25.9 L (34.0-46.0) % MCHC 30.7 L (31.0-37.0) g/dL Plt Count (150-450) k/uL Neutrophils # (1.3-7.7) k/uL Monocytes # (0-1.0) k/uL PT (9.0-12.0) sec INR (<1.2) BUN (7-17) mg/dL Calcium (8.4-10.2) mg/dL Microbiology - Last 24 Hours (Table) 04/12/22 20:01 Urine Culture - Preliminary Urine,Voided Assessment and Plan (1) Atrial fibrillation with RVR Current Visit: Yes Status: Acute Code(s): I48.91 - UNSPECIFIED ATRIAL FIBRILLATION SNOMED Code(s): 878939380504506 (2) Coagulopathy Current Visit: Yes Status: Acute Code(s): D68.9 - COAGULATION DEFECT, UNSPECIFIED SNOMED Code(s): 27571253 (3) Pelvic mass Current Visit: Yes Status: Acute Code(s): R19.00 - INTRA-ABD AND PELVIC SWELLING, MASS AND LUMP, UNSP SITE SNOMED Code(s): 64203852 (4) Weakness Current Visit: Yes Status: Acute Code(s): R53.1 - WEAKNESS SNOMED Code(s): 09623905 Plan: Comments and plan: At this time patient has generalized weakness and poor mentation and would be unable to participate or benefit from a full inpatient rehab program. She'll begin to consider alternative discharge plan. Therapies recommended SNF placement and would agree. We'll continue to follow with yourself though.
[2022-04-14 08:03] LABS: INR 1.3 (<1.2); Prothrombin Time 13.5 sec (9.0-12.0)
[2022-04-14 08:04] LABS: Basophils # (A) 0.1 k/uL (0-0.2); Basophils % (A) 1 %; Eosinophils # (A) 0.1 k/uL (0-0.7); Eosinophils % (A) 1 %; HCT 23.3 % (34.0-46.0); HGB 7.1 gm/dL (11.4-16.0); Hypochromasia Marked; Lymphocytes % (A) 10 %; MCH 28.5 pg (25.0-35.0); MCHC 30.4 g/dL (31.0-37.0); MCV 93.7 fL (80.0-100.0); Mean Platelet Volume 10.4; Monocytes # (A) 0.8 k/uL (0-1.0); Monocytes % (A) 4 %; Neutrophils # (A) 16.4 k/uL (1.3-7.7); Neutrophils % (A) 83 %; Platelet Count 205 k/uL (150-450); RBC 2.48 m/uL (3.80-5.40); RDW 15.6 % (11.5-15.5); WBC 19.7 k/uL (3.8-10.6)
[2022-04-14 08:24] LABS: Potassium 4.5 mmol/L (3.5-5.1); Total Bilirubin 2.6 mg/dL (0.2-1.3); Total Protein 5.4 g/dL (6.3-8.2)
[2022-04-14] MEDS: FUROSEMIDE 40 MG TAB PO SCH (09:58)
[2022-04-14] MEDS: METOPROLOL TARTRATE 50 MG TAB PO SCH ×3 (09:58→21:16)
--- NOTE | 2022-04-14 12:55 | P.PN ---
Subjective Progress Note Date: 04/14/22 Principal diagnosis: Chest wall hematoma This is a pleasant 82-year-old female who presented to the emergency department with weakness and a supratherapeutic INR. She has had multiple bruises on her body. She has a history of a recent fall in the last 1-2 weeks. She has a lar ge chest wall hematoma. No acute changes through the night. She did have a drop in her hemoglobin to 7.1. Objective - Vital Signs Vital signs: Vital Signs Temp 98.2 F 04/14/22 04:00 Pulse 99 04/14/22 04:00 Resp 18 04/14/22 04:00 BP 117/76 04/14/22 04:00 Pulse Ox 91 L 04/14/22 04:00 FiO2 Intake & Output 04/13/22 04/14/22 04/14/22 18:59 06:59 18:59 Intake Total 433 Output Total 900 600 Balance -900 -167 Weight 106.5 kg Intake: Blood Product 433 Ffp 24 Pher Acda Unit 217 [id number] Ffp 24 Pher Acda Unit 216 [id number] Output: Urine 900 600 Other: Voiding Method External Catheter External Catheter - Exam General appearance: The patient is alert, oriented, appears in no acute distress. HET: Head is normocephalic and atraumatic. Pupils are equal and reactive. Neck: Supple without lymphadenopathy. Trachea midline. Heart: S1 S2. Regular rate and rhythm. Lungs: Clear to auscultation bilaterally. Chest: Chest wall with normal expansion. Significant bruising and hematoma noted on the chest greatest on the left chest wall and breast. Abdomen: Soft, nontender, nondistended. Extremities: Bilateral lower extremity edema. Dressing to the right lower extremity. Multiple bruises on extremities. Neurological: No focal deficits. Strength and sensation are grossly intact. - Labs CBC & Chem 7: 04/14/22 07:33 04/14/22 07:33 Labs: Abnormal Lab Results - Last 24 Hours (Table) 04/13/22 04/13/22 04/13/22 Range/Units 08:38 08:38 08:38 WBC 20.9 H (3.8-10.6) k/uL RBC 2.77 L (3.80-5.40) m/uL Hgb 7.8 L D (11.4-16.0) gm/dL Hct 25.8 L (34.0-46.0) % MCHC 30.2 L (31.0-37.0) g/dL RDW (11.5-15.5) % Plt Count 139 L (150-450) k/uL Neutrophils # 17.4 H (1.3-7.7) k/uL Monocytes # 1.2 H (0-1.0) k/uL PT 26.4 H (9.0-12.0) sec INR 2.7 H (<1.2) Sodium (137-145) mmol/L BUN 32 H (7-17) mg/dL Creatinine (0.52-1.04) mg/dL Glucose (74-99) mg/dL Calcium 8.3 L (8.4-10.2) mg/dL Total Bilirubin (0.2-1.3) mg/dL AST (14-36) U/L Total Protein (6.3-8.2) g/dL Albumin (3.5-5.0) g/dL 04/13/22 04/14/22 04/14/22 Range/Units 16:48 07:33 07:33 WBC 24.6 H 19.7 H (3.8-10.6) k/uL RBC 2.75 L 2.48 L (3.80-5.40) m/uL Hgb 7.9 L 7.1 L (11.4-16.0) gm/dL Hct 25.9 L 23.3 L (34.0-46.0) % MCHC 30.7 L 30.4 L (31.0-37.0) g/dL RDW 15.6 H (11.5-15.5) % Plt Count (150-450) k/uL Neutrophils # 16.4 H (1.3-7.7) k/uL Monocytes # (0-1.0) k/uL PT 13.5 H (9.0-12.0) sec INR 1.3 H (<1.2) Sodium (137-145) mmol/L BUN (7-17) mg/dL Creatinine (0.52-1.04) mg/dL Glucose (74-99) mg/dL Calcium (8.4-10.2) mg/dL Total Bilirubin (0.2-1.3) mg/dL AST (14-36) U/L Total Protein (6.3-8.2) g/dL Albumin (3.5-5.0) g/dL 04/14/22 Range/Units 07:33 WBC (3.8-10.6) k/uL RBC (3.80-5.40) m/uL Hgb (11.4-16.0) gm/dL Hct (34.0-46.0) % MCHC (31.0-37.0) g/dL RDW (11.5-15.5) % Plt Count (150-450) k/uL Neutrophils # (1.3-7.7) k/uL Monocytes # (0-1.0) k/uL PT (9.0-12.0) sec INR (<1.2) Sodium 134 L (137-145) mmol/L BUN 40 H (7-17) mg/dL Creatinine 1.31 H (0.52-1.04) mg/dL Glucose 103 H (74-99) mg/dL Calcium 8.0 L (8.4-10.2) mg/dL Total Bilirubin 2.6 H (0.2-1.3) mg/dL AST 71 H (14-36) U/L Total Protein 5.4 L (6.3-8.2) g/dL Albumin 3.0 L (3.5-5.0) g/dL Assessment and Plan Assessment: 1. Chest wall hematoma 2. Supratherapeutic INR 3. Normocytic normochromic anemia 4. Weakness 5. Inability to ambulate 6. Ovarian mass 7. History of recent fall 8. History of atrial fibrillation on coumadin Plan: 1. Continue symptomatic and supportive care 2. Apply ice packs to chest wall hematoma 3. Daily CBC, 4. Give 1 unit PRBC 5. Hold Coumadin 6. Continue to treat supratherapeutic INR 7. No surgical intervention indicated at this time, continue to monitor hematoma 8. Continue medical management Thank you for this consultation, we will continue to follow. The impression and plan of care has been dictated as directed. Dr. Cheng I performed a history and examination of this patient, discussed the same with the dictator. I agree with the dictator's note ,documented as a scribe. Any additional findings or plans will be noted.
--- NOTE | 2022-04-14 15:26 | P.PN ---
Progress Note - Text Progress Note Date: 04/14/22 Chief Complaint: Weakness This is a 82-year-old patient who follows with Dr. Facundo Griffin. Chronic stable medical conditions include obesity, atrial fibrillation, hypertension. Patient lives alone. About 9 days ago patient had a sinus infection. Started with nasal drainage. She has been somewhat on the floor. Next morning she slipped and fell. Bumped her head pretty hard. Not able to get up. Was taken to [facility]. She had L4 on the right lower extremity and Sri stitches in there. She was sent home. Patient does state that she is chronically off-balance. Since her return to the house she has been pretty much in bed for last 7 days. Barely eating and drinking. Significant bruising. Patient is chronically hard of hearing as "chronic tinnitus. No chest pain or palpitation. Patient denies any headache. No change in vision. No changes speech. No focal weakness. Admitted with acute medical asthenia, Coumadin toxicity. April 13: Received 12 mg of vitamin K last night. Today's has enlarging hematoma on the right chest wall. INR down to 2.7. Cardiology give a further 5 mg vitamin K. 2 units of fresh frozen plasma also ordered. Care was discussed at length with the patient and daughter the bedside. Patient does state that in the past she's had a mitral valve and tricuspid valve repair and big valve replacement of the aortic valve. Also had atrial flutter fibrillation for which she is on anticoagulation. Eating better. Looking into rehab. Seen by from orthopedics. Remains in A. fib with a heart rate from 100. April 14: Hematoma present. Hemoglobin 7.1. One unit blood ordered. INR 1.3. Oral intake fair. Active Medications Acetaminophen (Acetaminophen Tab 325 Mg Tab) 650 mg PO Q6HR PRN PRN Reason: Mild Pain or Fever > 100.5 Calcium Carbonate/Glycine (Calcium Carbonate 500 Mg Chewable) 1,000 mg PO Q4HR PRN PRN Reason: Dyspepsia Furosemide (Furosemide 40 Mg Tab) 40 mg PO DAILY [facility] Last Admin: 04/14/22 09:58 Dose: 40 mg Lactulose (Lactulose 20 Gm/30 Ml Cup) 20 gm PO DAILY PRN PRN Reason: Constipation Lorazepam (Lorazepam 0.5 Mg Tab) 0.5 mg PO Q6HR PRN PRN Reason: Anxiety Metoprolol Tartrate (Metoprolol Tartrate 50 Mg Tab) 50 mg PO TID HAIM Last Admin: 04/14/22 09:58 Dose: 50 mg Naloxone HCl (Naloxone 0.4 Mg/Ml 1 Ml Vial) 0.2 mg IV Q2M PRN PRN Reason: Opioid Reversal Ondansetron HCl (Ondansetron 4 Mg/2 Ml Vial) 4 mg IVP Q8HR PRN PRN Reason: Nausea And Vomiting Temazepam (Temazepam 15 Mg Cap) 15 mg PO HS PRN PRN Reason: Insomnia Last Admin: 04/13/22 22:38 Dose: 15 mg Tramadol HCl (Tramadol 50 Mg Tab) 50 mg PO Q6H PRN PRN Reason: Moderate Pain Last Admin: 04/13/22 22:38 Dose: 50 mg Past medical history to include: Atrial fibrillation, hypertension, valve replacement Social history: Nonsmoker. Lives alone. Occasional alcohol. Family history: Reviewed, noncontributory to presentation Physical examination: VITAL SIGNS: 97.6, 90, 16, 106/60, 100% on 2 L GENERAL: laying in bed and awake, Scattered bruising DERMATOLOGICAL: Large chest wall hematoma. EYES: Pupils equal. Conjunctiva normal. HEENT: External appearance of nose and ears normal, oral cavity grossly normal. NECK: JVD unable to assess; masses not palpable. HEART: Heart sounds irregular; no edema. LUNGS: Respiratory rate normal; clear to auscultation. ABDOMEN: Soft, nontender, liver spleen not palpable, no masses palpable. PSYCH: Alert and oriented x3; mood and affect normal. MUSCULOSKELETAL:No Clubbing/cyanosis;muscles-grossly intact. Evidence of OA EXTREMITIES: Wound on the right lower extremity, with dressing INVESTIGATIONS, reviewed in the clinical context: April 14: WBC 19.7 hemoglobin 7.1 platelets 205 INR 1.3 progression 4.5 creatinine 1.31 Pelvic ultrasound: 12.5 x 25.4 cm partially cystic mass involving the pelvis. Possibly 2 more related etiology. April 13: White count 20.9 hemoglobin 7.8 platelets 139 INR 2.7 potassium 4.6 creatinine 1.0 WBC is 19.9 hemoglobin 9.3 platelets 167 INR greater than 10 potassium 4.9 creatinine 0.86 Troponin I 0.034, 0.030 TSH 0.3 EKG tracing personally reviewed by me-atrial fibrillation, rate 118 Chest x-ray film personally reviewed by me-cardiomegaly, some venous prominence. CT pelvis with contrast: Large septated cystic mass 21.9 x 14.2 cm x 25 cm. 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 Assessment and plan: -Persistent atrial fibrillation, presenting with rapid ventricle rate: Heart rate around 100 this morning. Lupus increased to 50 mg 3 times a day. -Acute congestive heart failure exacerbation possibly precipitated by atrial fibrillation: Better By mouth Lasix 40 mg daily. -History of mitral and tricuspid valve repair. Aortic valve replacement with pig valve. -Coumadin toxicity with severe bruising/right chest wall hematoma. Received vitamin K and FFP -Large hematoma chest wall from Coumadin toxicity and fall Skin marked. Seen by vascular. Conservative management. -Acute blood loss anemia from hematoma. Hemodynamically stable. 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 Seen by . Ova 1 requested. Patient and family don't want any surgical intervention. We'll follow up outpatient -Acute on chronic medical debility 4 rehab 1 unit of blood ordered. Other medications to continue. Discussed with vascular. Not for any further intervention. Keep off anticoagulations for now. Patient and family don't want any surgical intervention for the tubo-ovarian mass. We will follow outpatient with . Total time spent about 40 minutes with over 25 minutes of discussion.
--- NOTE | 2022-04-14 19:50 | PN ---
PROGRESS NOTE Mrs. Lancaster is 82 years of age, has aortic valve replacement, mitral valve repair, atrial fibrillation; came in with coagulopathy with INR of more than 10. Hemoglobin has dropped further. She received 2 units of fresh frozen plasma yesterday. Her INR is actually 1.3. She is doing well. Hopefully the bleeding has stopped. We will continue to follow hemoglobin and I am recommending that she should not be on Coumadin, even though she has multiple issues. She has bruising all over the body. There is a hematoma of the left anterior chest wall over her left breast. Vitals are stable. S1, S2 with irregular rhythm noted. Short systolic murmur noted. Lungs revealed diminished air entry. Abdomen and lower extremity exam otherwise is unchanged. Plan is to continue current medical regimen and monitor hemoglobin. Prognosis remains guarded. MMODL / IJN: [id number] /
[2022-04-14 20:56] LABS: HGB 7.8 gm/dL (11.4-16.0); Hypochromasia Marked; MCH 27.8 pg (25.0-35.0); MCV 92.5 fL (80.0-100.0); Mean Platelet Volume 11.3; Platelet Count 205 k/uL (150-450); RBC 2.82 m/uL (3.80-5.40); RDW 15.9 % (11.5-15.5); WBC 19.8 k/uL (3.8-10.6)
[2022-04-15] MEDS ORDERED: ALBUTEROL NEBULIZED 2.5 MG/3 ML INHALATION PRN (00:56)
[2022-04-15 08:13] LABS: Basophils # (A) 0.1 k/uL (0-0.2); Basophils % (A) 0 %; Eosinophils # (A) 0.3 k/uL (0-0.7); Eosinophils % (A) 2 %; HCT 24.2 % (34.0-46.0); Hypochromasia Marked; Lymphocytes # (A) 1.5 k/uL (1.0-4.8); Lymphocytes % (A) 10 %; MCH 26.9 pg (25.0-35.0); MCHC 29.1 g/dL (31.0-37.0); MCV 92.5 fL (80.0-100.0); Mean Platelet Volume 10.3; Monocytes # (A) 0.7 k/uL (0-1.0); Monocytes % (A) 5 %; Neutrophils # (A) 12.1 k/uL (1.3-7.7); Neutrophils % (A) 82 %; Platelet Count 183 k/uL (150-450); RBC 2.61 m/uL (3.80-5.40); RDW 15.9 % (11.5-15.5); WBC 14.7 k/uL (3.8-10.6)
[2022-04-15 08:17] LABS: INR 1.2 (<1.2); Prothrombin Time 12.8 sec (9.0-12.0)
[2022-04-15 08:21] LABS: Calcium 7.9 mg/dL (8.4-10.2); Potassium 4.2 mmol/L (3.5-5.1)
[2022-04-15] MEDS: FUROSEMIDE 40 MG TAB PO SCH (09:28)
[2022-04-15] MEDS: METOPROLOL TARTRATE 50 MG TAB PO SCH ×3 (09:28→21:07)
--- NOTE | 2022-04-15 13:10 | XR ---
EXAMINATION TYPE: XR chest 1V portable DATE OF EXAM: 04/15/2022 HISTORY: Shortness of breath. COMPARISON: 04/12/2022 TECHNIQUE: Single view of the chest is submitted. FINDINGS: Demonstrated are scattered senescent parenchymal change. There is no evidence for focal infiltrate. Continued cardiomegaly. Much improved pulmonary venous congestion. Hilar and mediastinal structures are within normal limits. Degenerative changes are seen of the dorsal spine. IMPRESSION: 1. Continued cardiomegaly. Much improved pulmonary venous congestion.
[2022-04-15] MEDS: guaiFENesin 600 MG TABLET.ER PO SCH ×3 (13:48→21:07)
--- NOTE | 2022-04-15 14:08 | P.PN ---
Subjective Progress Note Date: 04/15/22 The patient is an 82-year-old female who is currently admitted to the hospital after a mechanical fall. INR was greater than 10 and therefore sustained chest wall hematoma and significant bruising. Warfarin is currently on hold and INR remains around 1.2. The patient was interviewed and examined resting comfortably in bed. She states she's done well overnight and has no difficulty breathing. She does so some tenderness to her chest wall around her bruising. She has not been up ambulating around her room and cannot attest to dizziness or lightheadedness. GENERAL: Ill-appearing, well-nourished and in no acute distress. Diffuse bruising throughout thorax and extremities NECK: Supple without JVD or thyromegaly. LUNGS: Breath sounds clear to auscultation bilaterally. Respiration equal and unlabored. No wheezes, rales or rhonchi. HEART: Irregular rate and rhythm. Soft systolic murmur. No rubs or gallops. S1 and S2 heard. EXTREMITIES: Normal range of motion. +3 edema. Bilateral discoloration with venous stasis ulcer on right calf. No clubbing or cyanosis. VITALS: Blood pressure 92/57, pulse 82, respiratory rate 16, temp 98.7F, SpO2 95% TELEMETRY: Persistent atrial fibrillation, rate controlled LABS: WBC 14.7, hemoglobin 7.0, hematocrit 24.2, platelet 183, sodium 131, potassium 4.2, BUN 49, creatinine 1.39 IMPRESSION: Coagulopathy with chest wall hematoma Status post mechanical fall Anemia, blood loss Chronic atrial fibrillation, on warfarin, currently on hold Status post aortic valve replacement and mitral valve repair Chronic lymphedema PLAN: Long-term anticoagulation to be discussed with primary denial management representative/primary care provider Suggest compression pumps outpatient for chronic lymphedema and venous stasis ulcers We'll continue to follow on an as-needed basis only I am dictating on behalf of Dr Azael Lopez's history/physical and assessment/plan. Objective - Vital Signs Vital signs: Vital Signs Temp 98.7 F 04/15/22 13:51 Pulse 82 04/15/22 13:51 Resp 16 04/15/22 13:51 BP 92/57 04/15/22 13:51 Pulse Ox 95 04/15/22 13:51 FiO2 Intake & Output 04/14/22 04/15/22 04/15/22 18:59 06:59 18:59 Intake Total 279 0 Output Total 500 Balance 279 -500 0 Intake: Blood Product 279 0 Unit 0 Rc Pheresis As-3 Unit 279 [id number] Output: Urine 500 Other: Voiding Method External Catheter External Catheter External Catheter # Bowel Movements 0 - Labs CBC & Chem 7: 04/15/22 07:09 04/15/22 07:09 Labs: Abnormal Lab Results - Last 24 Hours (Table) 04/13/22 04/14/22 04/15/22 Range/Units 16:34 20:41 07:09 WBC 19.8 H (3.8-10.6) k/uL RBC 2.82 L (3.80-5.40) m/uL Hgb 7.8 L (11.4-16.0) gm/dL Hct 26.0 L (34.0-46.0) % MCHC 30.0 L (31.0-37.0) g/dL RDW 15.9 H (11.5-15.5) % Neutrophils # (1.3-7.7) k/uL PT 12.8 H (9.0-12.0) sec INR 1.2 H (<1.2) Sodium (137-145) mmol/L BUN (7-17) mg/dL Creatinine (0.52-1.04) mg/dL Calcium (8.4-10.2) mg/dL Crossmatch See Detail 04/15/22 04/15/22 Range/Units 07:09 07:09 WBC 14.7 H (3.8-10.6) k/uL RBC 2.61 L (3.80-5.40) m/uL Hgb 7.0 L (11.4-16.0) gm/dL Hct 24.2 L (34.0-46.0) % MCHC 29.1 L (31.0-37.0) g/dL RDW 15.9 H (11.5-15.5) % Neutrophils # 12.1 H (1.3-7.7) k/uL PT (9.0-12.0) sec INR (<1.2) Sodium 131 L (137-145) mmol/L BUN 49 H (7-17) mg/dL Creatinine 1.39 H (0.52-1.04) mg/dL Calcium 7.9 L (8.4-10.2) mg/dL Crossmatch Microbiology - Last 24 Hours (Table) 04/12/22 20:01 Urine Culture - Final Urine,Voided
--- NOTE | 2022-04-15 15:11 | P.PN ---
Progress Note - Text Progress Note Date: 04/15/22 Chief Complaint: Weakness This is a 82-year-old patient who follows with Dr. Facundo Griffin. Chronic stable medical conditions include obesity, atrial fibrillation, hypertension. Patient lives alone. About 9 days ago patient had a sinus infection. Started with nasal drainage. She has been somewhat on the floor. Next morning she slipped and fell. Bumped her head pretty hard. Not able to get up. Was taken to [facility]. She had L4 on the right lower extremity and Sri stitches in there. She was sent home. Patient does state that she is chronically off-balance. Since her return to the house she has been pretty much in bed for last 7 days. Barely eating and drinking. Significant bruising. Patient is chronically hard of hearing as "chronic tinnitus. No chest pain or palpitation. Patient denies any headache. No change in vision. No changes speech. No focal weakness. Admitted with acute medical asthenia, Coumadin toxicity. April 13: Received 12 mg of vitamin K last night. Today's has enlarging hematoma on the right chest wall. INR down to 2.7. Cardiology give a further 5 mg vitamin K. 2 units of fresh frozen plasma also ordered. Care was discussed at length with the patient and daughter the bedside. Patient does state that in the past she's had a mitral valve and tricuspid valve repair and big valve replacement of the aortic valve. Also had atrial flutter fibrillation for which she is on anticoagulation. Eating better. Looking into rehab. Seen by from orthopedics. Remains in A. fib with a heart rate from 100. April 14: Hematoma present. Hemoglobin 7.1. One unit blood ordered. INR 1.3. Oral intake fair. April 15: Decreased appetite. Some shortness of breath. Patient smoked for about 15 years about 3 packs a day. Wheezing. DuoNeb up and nebulized steroids added. Heart rate around 100. Blood pressure running on the lower side. Hemoglobin 7. One unit of blood ordered. Discussed with the patient daughter the bedside. Active Medications Acetaminophen (Acetaminophen Tab 325 Mg Tab) 650 mg PO Q6HR PRN PRN Reason: Mild Pain or Fever > 100.5 Albuterol Sulfate (Albuterol Nebulized 2.5 Mg/3 Ml) 2.5 mg INHALATION RT-QID PRN PRN Reason: Shortness Of Breath Or Wheezing Albuterol/Ipratropium (Ipratropium-Albuterol 3 Ml Neb) 3 ml INHALATION RT-QID [facility] Budesonide (Budesonide 1 Mg/2 Ml Nebu) 1 mg INHALATION RT-BID [facility] Calcium Carbonate/Glycine (Calcium Carbonate 500 Mg Chewable) 1,000 mg PO Q4HR PRN PRN Reason: Dyspepsia Furosemide (Furosemide 40 Mg Tab) 40 mg PO DAILY [facility] Last Admin: 04/15/22 09:28 Dose: 40 mg Guaifenesin (Guaifenesin 600 Mg Tablet.Er) 600 mg PO QID [facility] Last Admin: 04/15/22 13:48 Dose: 600 mg Lactulose (Lactulose 20 Gm/30 Ml Cup) 20 gm PO DAILY PRN PRN Reason: Constipation Lorazepam (Lorazepam 0.5 Mg Tab) 0.5 mg PO Q6HR PRN PRN Reason: Anxiety Metoprolol Tartrate (Metoprolol Tartrate 50 Mg Tab) 50 mg PO TID [facility] Last Admin: 04/15/22 09:28 Dose: 50 mg Naloxone HCl (Naloxone 0.4 Mg/Ml 1 Ml Vial) 0.2 mg IV Q2M PRN PRN Reason: Opioid Reversal Ondansetron HCl (Ondansetron 4 Mg/2 Ml Vial) 4 mg IVP Q8HR PRN PRN Reason: Nausea And Vomiting Temazepam (Temazepam 15 Mg Cap) 15 mg PO HS PRN PRN Reason: Insomnia Last Admin: 04/13/22 22:38 Dose: 15 mg Tramadol HCl (Tramadol 50 Mg Tab) 50 mg PO Q6H PRN PRN Reason: Moderate Pain Last Admin: 04/13/22 22:38 Dose: 50 mg Past medical history to include: Atrial fibrillation, hypertension, valve replacement Social history: Nonsmoker. Lives alone. Occasional alcohol. Family history: Reviewed, noncontributory to presentation Physical examination: VITAL SIGNS: 98.7, 82, 16, 92/57, 95% nasal cannula GENERAL: laying in bed and awake, Scattered bruising DERMATOLOGICAL: Large chest wall hematoma. EYES: Pupils equal. Conjunctiva pale HEENT: External appearance of nose and ears normal, oral cavity grossly normal. NECK: JVD unable to assess; masses not palpable. HEART: Heart sounds irregular; no edema. LUNGS: Respiratory rate increased; decreased breath sounds, wheezing ABDOMEN: Soft, nontender, liver spleen not palpable, no masses palpable. PSYCH: Alert and oriented x3; mood and affect normal. MUSCULOSKELETAL:No Clubbing/cyanosis;muscles-grossly intact. Evidence of OA EXTREMITIES: Wound on the right lower extremity, with dressing INVESTIGATIONS, reviewed in the clinical context: April 15: WBC 14.7 hemoglobin 7 platelets 23 potassium 4.2. 49 creatinine 1.39.Chest x-ray film personally reviewed by me-cardiomegaly April 14: WBC 19.7 hemoglobin 7.1 platelets 205 INR 1.3 progression 4.5 creatinine 1.31 Pelvic ultrasound: 12.5 x 25.4 cm partially cystic mass involving the pelvis. Possibly 2 more related etiology. April 13: White count 20.9 hemoglobin 7.8 platelets 139 INR 2.7 potassium 4.6 creatinine 1.0 WBC is 19.9 hemoglobin 9.3 platelets 167 INR greater than 10 potassium 4.9 creatinine 0.86 Troponin I 0.034, 0.030 TSH 0.3 EKG tracing personally reviewed by me-atrial fibrillation, rate 118 Chest x-ray film personally reviewed by me-cardiomegaly, some venous prominence. CT pelvis with contrast: Large septated cystic mass 21.9 x 14.2 cm x 25 cm. 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 Assessment and plan: -Persistent atrial fibrillation, presenting with rapid ventricle rate: Heart rate around 100 Lopressor 50 mg 3 times a day. -Acute congestive heart failure exacerbation possibly precipitated by atrial fibrillation: Better By mouth Lasix 40 mg daily. -History of mitral and tricuspid valve repair. Aortic valve replacement with pig valve. -Coumadin toxicity with severe bruising/right chest wall hematoma. Received vitamin K and FFP -Large hematoma chest wall from Coumadin toxicity and fall Skin marked. Seen by vascular. Conservative management. -Acute blood loss anemia from hematoma. Hemodynamically stable. 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 Seen by . Ova 1 requested. Patient and family don't want any surgical intervention. Follow [employer] EXEC[employer]IVE outpatient -Acute on chronic medical debility 4 rehab -Acute COPD exacerbation and a previous smoker:new diagnosis DuoNeb 4 times a day. Nebulized Pulmicort 1 mg twice a day Add DuoNeb, nebulized Pulmicort. One unit of blood. Discussed with patient and family. Other medications to continue.
[2022-04-15] MEDS: BUDESONIDE 1 MG/2 ML NEBU INHALATION SCH ×2 (16:32→20:36)
[2022-04-15] MEDS: IPRATROPIUM-ALBUTEROL 3 ML NEB INHALATION SCH ×3 (16:33→20:36)
[2022-04-16 07:34] LABS: INR 1.3 (<1.2)
[2022-04-16 07:44] LABS: Calcium 8.1 mg/dL (8.4-10.2); Potassium 4.4 mmol/L (3.5-5.1)
[2022-04-16 07:47] LABS: Anisocytosis Slight; Basophils % (A) 0 %; Eosinophils # (A) 0.1 k/uL (0-0.7); Eosinophils % (A) 0 %; HCT 27.1 % (34.0-46.0); HGB 8.6 gm/dL (11.4-16.0); Hypochromasia Marked; Lymphocytes # (A) 1.5 k/uL (1.0-4.8); Lymphocytes % (A) 8 %; MCH 29.4 pg (25.0-35.0); MCHC 31.8 g/dL (31.0-37.0); MCV 92.3 fL (80.0-100.0); Mean Platelet Volume 10.7; Monocytes # (A) 0.8 k/uL (0-1.0); Monocytes % (A) 5 %; Neutrophils # (A) 15.1 k/uL (1.3-7.7); Neutrophils % (A) 85 %; Platelet Count 171 k/uL (150-450); Poikilocytosis Slight; RBC 2.94 m/uL (3.80-5.40); RDW 16.6 % (11.5-15.5); WBC 17.8 k/uL (3.8-10.6)
[2022-04-16] MEDS: IPRATROPIUM-ALBUTEROL 3 ML NEB INHALATION SCH ×4 (07:51→19:34)
[2022-04-16] MEDS: BUDESONIDE 1 MG/2 ML NEBU INHALATION SCH ×2 (07:51→19:34)
[2022-04-16] MEDS: FUROSEMIDE 40 MG TAB PO SCH (09:37)
[2022-04-16] MEDS: METOPROLOL TARTRATE 50 MG TAB PO SCH ×3 (09:37→22:09)
[2022-04-16] MEDS: guaiFENesin 600 MG TABLET.ER PO SCH ×4 (09:37→22:11)
--- NOTE | 2022-04-16 11:05 | P.PN ---
Progress Note - Text Progress Note Date: 04/16/22 Chief Complaint: Weakness This is a 82-year-old patient who follows with Dr. Facundo Griffin. Chronic stable medical conditions include obesity, atrial fibrillation, hypertension. Patient lives alone. About 9 days ago patient had a sinus infection. Started with nasal drainage. She has been somewhat on the floor. Next morning she slipped and fell. Bumped her head pretty hard. Not able to get up. Was taken to [facility]. She had L4 on the right lower extremity and Sri stitches in there. She was sent home. Patient does state that she is chronically off-balance. Since her return to the house she has been pretty much in bed for last 7 days. Barely eating and drinking. Significant bruising. Patient is chronically hard of hearing as "chronic tinnitus. No chest pain or palpitation. Patient denies any headache. No change in vision. No changes speech. No focal weakness. Admitted with acute medical asthenia, Coumadin toxicity. April 13: Received 12 mg of vitamin K last night. Today's has enlarging hematoma on the right chest wall. INR down to 2.7. Cardiology give a further 5 mg vitamin K. 2 units of fresh frozen plasma also ordered. Care was discussed at length with the patient and daughter the bedside. Patient does state that in the past she's had a mitral valve and tricuspid valve repair and big valve replacement of the aortic valve. Also had atrial flutter fibrillation for which she is on anticoagulation. Eating better. Looking into rehab. Seen by from orthopedics. Remains in A. fib with a heart rate from 100. April 14: Hematoma present. Hemoglobin 7.1. One unit blood ordered. INR 1.3. Oral intake fair. April 15: Decreased appetite. Some shortness of breath. Patient smoked for about 15 years about 3 packs a day. Wheezing. DuoNeb up and nebulized steroids added. Heart rate around 100. Blood pressure running on the lower side. Hemoglobin 7. One unit of blood ordered. Discussed with the patient daughter the bedside. April 16: Eating a bit better. Constipation. Lactulose ordered. Breathing better. Active Medications Acetaminophen (Acetaminophen Tab 325 Mg Tab) 650 mg PO Q6HR PRN PRN Reason: Mild Pain or Fever > 100.5 Albuterol Sulfate (Albuterol Nebulized 2.5 Mg/3 Ml) 2.5 mg INHALATION RT-QID PRN PRN Reason: Shortness Of Breath Or Wheezing Albuterol/Ipratropium (Ipratropium-Albuterol 3 Ml Neb) 3 ml INHALATION RT-QID [facility] Last Admin: 04/16/22 07:51 Dose: Not Given Budesonide (Budesonide 1 Mg/2 Ml Nebu) 1 mg INHALATION RT-BID [facility] Last Admin: 04/16/22 07:51 Dose: Not Given Calcium Carbonate/Glycine (Calcium Carbonate 500 Mg Chewable) 1,000 mg PO Q4HR PRN PRN Reason: Dyspepsia Furosemide (Furosemide 40 Mg Tab) 40 mg PO DAILY [facility] Last Admin: 04/16/22 09:37 Dose: 40 mg Guaifenesin (Guaifenesin 600 Mg Tablet.Er) 600 mg PO QID [facility] Last Admin: 04/16/22 09:37 Dose: 600 mg Lactulose (Lactulose 20 Gm/30 Ml Cup) 20 gm PO DAILY PRN PRN Reason: Constipation Lorazepam (Lorazepam 0.5 Mg Tab) 0.5 mg PO Q6HR PRN PRN Reason: Anxiety Metoprolol Tartrate (Metoprolol Tartrate 50 Mg Tab) 50 mg PO TID [facility] Last Admin: 04/16/22 09:37 Dose: 50 mg Naloxone HCl (Naloxone 0.4 Mg/Ml 1 Ml Vial) 0.2 mg IV Q2M PRN PRN Reason: Opioid Reversal Ondansetron HCl (Ondansetron 4 Mg/2 Ml Vial) 4 mg IVP Q8HR PRN PRN Reason: Nausea And Vomiting Temazepam (Temazepam 15 Mg Cap) 15 mg PO HS PRN PRN Reason: Insomnia Last Admin: 04/13/22 22:38 Dose: 15 mg Tramadol HCl (Tramadol 50 Mg Tab) 50 mg PO Q6H PRN PRN Reason: Moderate Pain Last Admin: 04/13/22 22:38 Dose: 50 mg Past medical history to include: Atrial fibrillation, hypertension, valve replacement Social history: Nonsmoker. Lives alone. Occasional alcohol. Family history: Reviewed, noncontributory to presentation Physical examination: VITAL SIGNS: 97.7, 85, 18, 109/69, 99% room air GENERAL: laying in bed and awake, Scattered bruising DERMATOLOGICAL: Large chest wall hematoma. EYES: Pupils equal. Conjunctiva pale HEENT: External appearance of nose and ears normal, oral cavity grossly normal. NECK: JVD unable to assess; masses not palpable. HEART: Heart sounds irregular; no edema. LUNGS: Respiratory rate increased; decreased breath sounds, improved wheezing ABDOMEN: Soft, nontender, liver spleen not palpable, no masses palpable. PSYCH: Alert and oriented x3; mood and affect normal. MUSCULOSKELETAL:No Clubbing/cyanosis;muscles-grossly intact. Evidence of OA EXTREMITIES: Wound on the right lower extremity, with dressing INVESTIGATIONS, reviewed in the clinical context: April 16: WBC 17.8 hemoglobin 8.6 platelets 131 potassium 4.4 creatinine 1.27 sodium 134 April 15: WBC 14.7 hemoglobin 7 platelets 23 potassium 4.2. 49 creatinine 1.39.Chest x-ray film personally reviewed by me-cardiomegaly April 14: WBC 19.7 hemoglobin 7.1 platelets 205 INR 1.3 progression 4.5 creatinine 1.31 Pelvic ultrasound: 12.5 x 25.4 cm partially cystic mass involving the pelvis. Possibly 2 more related etiology. April 13: White count 20.9 hemoglobin 7.8 platelets 139 INR 2.7 potassium 4.6 creatinine 1.0 WBC is 19.9 hemoglobin 9.3 platelets 167 INR greater than 10 potassium 4.9 creatinine 0.86 Troponin I 0.034, 0.030 TSH 0.3 EKG tracing personally reviewed by me-atrial fibrillation, rate 118 Chest x-ray film personally reviewed by me-cardiomegaly, some venous prominence. CT pelvis with contrast: Large septated cystic mass 21.9 x 14.2 cm x 25 cm. 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 Assessment and plan: -Persistent atrial fibrillation, presenting with rapid ventricle rate: Heart rate around 100 Lopressor 50 mg 3 times a day. -Acute congestive heart failure exacerbation possibly precipitated by atrial fibrillation: Better By mouth Lasix 40 mg daily. -History of mitral and tricuspid valve repair. Aortic valve replacement with pig valve. -Coumadin toxicity with severe bruising/right chest wall hematoma. Received vitamin K and FFP -Large hematoma chest wall from Coumadin toxicity and fall Skin marked. Seen by vascular. Conservative management. -Acute blood loss anemia from hematoma. Hemodynamically stable. 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 Seen by . Ova 1 requested. Patient and family don't want any surgical intervention. 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 Nebulized Pulmicort 1 mg twice a day Continue DuoNeb, nebulized Pulmicort. Discussed with patient . Lactulose. Other medications to continue.
[2022-04-16] MEDS ORDERED: LACTULOSE 20 GM/30 ML CUP PO ONE (16:47)
[2022-04-17 05:26] VITALS: RESP 16
[2022-04-17] MEDS: IPRATROPIUM-ALBUTEROL 3 ML NEB INHALATION SCH ×2 (08:21→11:23)
[2022-04-17] MEDS: BUDESONIDE 1 MG/2 ML NEBU INHALATION SCH (08:21)
[2022-04-17] MEDS: guaiFENesin 600 MG TABLET.ER PO SCH ×2 (09:49→12:42)
[2022-04-17] MEDS: FUROSEMIDE 40 MG TAB PO SCH (09:49)
[2022-04-17] MEDS: METOPROLOL TARTRATE 50 MG TAB PO SCH (09:49)
--- NOTE | 2022-04-17 11:06 | P.PN ---
Subjective Progress Note Date: 04/17/22 Principal diagnosis: Chest wall hematoma This is a pleasant 82-year-old female who presented to the emergency department with weakness and a supratherapeutic INR. She has had multiple bruises on her body. She has a history of a recent fall in the last 1-2 weeks. We're seeing her as a follow-up for a large chest wall hematoma. The patient is much more awake and alert today. She states overall she is doing well. Hematoma is improving. Hemoglobin is stable at 8.6. Objective - Vital Signs Vital signs: Vital Signs Temp 97.5 F L 04/17/22 04:44 Pulse 72 04/17/22 08:39 Resp 16 04/17/22 04:44 BP 110/71 04/17/22 04:44 Pulse Ox 97 04/17/22 04:44 FiO2 Intake & Output 04/16/22 04/17/22 04/17/22 18:59 06:59 18:59 Intake Total 390 Output Total 800 420 Balance -410 -420 Intake: Oral 390 Output: Urine 800 420 Other: Voiding Method External Catheter External Catheter - Exam General appearance: The patient is alert, oriented, appears in no acute distress. HET: Head is normocephalic and atraumatic. Pupils are equal and reactive. Neck: Supple without lymphadenopathy. Trachea midline. Chest: Chest wall with normal expansion. Significant bruising and hematoma noted on the chest greatest on the left chest wall and breast, hematoma is softening. Surrounding skin intact without any signs of ischemia. Abdomen: Soft, nontender, nondistended. Extremities: Bilateral lower extremity edema. Dressing to the right lower extremity. Multiple bruises on extremities. Neurological: No focal deficits. Alert and oriented. - Labs CBC & Chem 7: 04/16/22 06:30 04/16/22 06:30 Assessment and Plan Assessment: 1. Chest wall hematoma 2. Supratherapeutic INR 3. Normocytic normochromic anemia 4. Weakness 5. Inability to ambulate 6. Ovarian mass 7. History of recent fall 8. History of atrial fibrillation on coumadin Plan: 1. Continue symptomatic and supportive care 2. Apply ice packs to chest wall hematoma 3. Daily CBC, 4. No surgical intervention indicated at this time, continue to monitor hematoma 5. Continue medical management Thank you for this consultation, we will be on standby if further needed. The impression and plan of care has been dictated as directed. Dr. Cheng I performed a history and examination of this patient, discussed the same with the dictator. I agree with the dictator's note ,documented as a scribe. Any additional findings or plans will be noted.
[2022-04-17 12:52] VITALS: BP 114/70; PULSE 86; TEMP 98.3
--- NOTE | 2022-04-17 13:56 | P.DS ---
Providers Date of admission: 04/12/22 15:01 Expected date of discharge: 04/17/22 Attending physician: Greg Sierra Consults: 04/12/22 14:58 Consult Physician Routine Consulting Provider: Bri Sanders Consult Reason/Comments: a fib Do you want consulting provider notified?: Yes Consult Physician Routine Consulting Provider: Jennifer Kirkland Consult Reason/Comments: Sacral pain, unable to ambulate Do you want consulting provider notified?: Yes 04/13/22 11:09 Consult Physician Routine Consulting Provider: Yasmeen Tate Consult Reason/Comments: Large Ovarian cyst Do you want consulting provider notified?: Yes 04/13/22 12:30 Consult Physician Routine Consulting Provider: Jeison Dumont Consult Reason/Comments: [facility] Do you want consulting provider notified?: Yes 04/13/22 14:14 Consult Physician Routine Consulting Provider: Es Nelson Consult Reason/Comments: supratheraputic INR with large chest hematoma Do you want consulting provider notified?: Yes Primary care physician: Facundo Griffin [facility] Course: Chief Complaint: Weakness This is a 82-year-old patient who follows with Dr. Facundo Griffin. Chronic stable medical conditions include obesity, atrial fibrillation, hypertension. Patient lives alone. About 9 days ago patient had a sinus infection. Started with nasal drainage. She has been somewhat on the floor. Next morning she slipped and fell. Bumped her head pretty hard. Not able to get up. Was taken to [facility]. She had L4 on the right lower extremity and Sri stitches in there. She was sent home. Patient does state that she is chronically off-balance. Since her return to the house she has been pretty much in bed for last 7 days. Barely eating and drinking. Significant bruising. Patient is chronically hard of hearing as "chronic tinnitus. No chest pain or palpitation. Patient denies any headache. No change in vision. No changes speech. No focal weakness. Admitted with acute medical asthenia, Coumadin toxicity. Patient received a total of 70 mg of vitamin K. 2 units of fresh frozen plasma. Patient did drop her hemoglobin to 7 because of hematoma and bruising especially over the breast.. Did receive 2 units of blood. in the past she's had a mitral valve and tricuspid valve repair and pig valve replacement of the aortic valve, several years ago.. Anticoagulation to be held off for right now until seen by cardiology as outpatient. Patient also to flareup of COPD, being an ex-smoker. Responded well to bronchodilators apply steroids. Patient was seen by Dr. Cheng from vascular-no further intervention. [facility]. Conservative management. April 17: Patient been accepted at rehab. PTOT. Requiring assistance with standing up currently. Questions answered. No anticoagulation for now. Follow up with cardiology outpatient. Remains in A. fib, heart rate controlled. Pat ient follow-up with for ovarian mass outpatient. Discussion and discharge planning more than 35 minutes Past medical history to include: Atrial fibrillation, hypertension, valve replacement Social history: Smoke 3 packs a day for about 15-20 years previously. Lives alone. Occasional alcohol. Family history: Reviewed, noncontributory to presentation Physical examination: VITAL SIGNS: 98.3, 86, 16, 114/70, 97% room air GENERAL: Sitting up in the age the bed, awake Scattered bruising DERMATOLOGICAL: Large chest wall hematoma. EYES: Pupils equal. Conjunctiva pale HEENT: External appearance of nose and ears normal, oral cavity grossly normal. Heart of hearing NECK: JVD unable to assess; masses not palpable. HEART: Heart sounds irregular; mild edema. LUNGS: Respiratory rate increased; decreased breath sounds, improved wheezing ABDOMEN: Soft, nontender, liver spleen not palpable, no masses palpable. PSYCH: Alert and oriented x3; mood and affect normal. MUSCULOSKELETAL:No Clubbing/cyanosis;muscles-grossly intact. Evidence of OA EXTREMITIES: Wound on the right lower extremity, with dressing. INVESTIGATIONS, reviewed in the clinical context: April 16: WBC 17.8 hemoglobin 8.6 platelets 131 potassium 4.4 creatinine 1.27 sodium 134 Pelvic ultrasound: 12.5 x 25.4 cm partially cystic mass involving the pelvis. Possibly 2 more related etiology. April 13: White count 20.9 hemoglobin 7.8 platelets 139 INR 2.7 potassium 4.6 creatinine 1.0 WBC is 19.9 hemoglobin 9.3 platelets 167 INR greater than 10 potassium 4.9 creatinine 0.86 Troponin I 0.034, 0.030 TSH 0.3 EKG tracing personally reviewed by me-atrial fibrillation, rate 118 Chest x-ray film personally reviewed by me-cardiomegaly, some venous prominence. CT pelvis with contrast: Large septated cystic mass 21.9 x 14.2 cm x 25 cm. 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 Assessment and plan: -Persistent atrial fibrillation, rate controlled Lopressor 50 mg 3 times a day. -Acute congestive heart failure exacerbation possibly precipitated by atrial fibrillation: Better By mouth Lasix 40 mg daily. 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 -Coumadin toxicity with severe bruising/right chest wall hematoma. Received vitamin K and FFP. -Large hematoma chest wall from Coumadin toxicity and fall Seen by vascular. Conservative management. -Acute blood loss anemia from hematoma. Hemodynamically stable. Receive 2 units of blood. -Hypotension from blood loss anemia. 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 Seen by . Ova 1 requested. Patient and family don't want any surgical intervention. 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 Qvar 80 g 1 puff twice a day Disposition: Rehab at [facility] in 3 days Plan - Discharge Summary Discharge Rx Participant: Yes New Discharge Prescriptions: New Ipratropium-Albuterol Nebulize [Duoneb 0.5 mg-3 mg/3 ml Soln] 3 ml INHALATION TID each Metoprolol Tartrate [Lopressor] 50 mg PO TID tab guaiFENesin [Mucinex] 600 mg PO QID tab Albuterol Nebulized [Ventolin Nebulized] 2.5 mg INHALATION RT-QID PRN ml PRN Reason: Shortness Of Breath Or Wheezing Furosemide [Lasix] 40 mg PO DAILY tab Beclomethasone Dip 80 Mcg/Puff [Qvar 80 mcg] 1 puff INHALATION BID #8.7 gm Discontinued Furosemide [Lasix] 20 mg PO BID Potassium Chloride [Potassium Chloride ER] 10 meq PO BID Metoprolol Succinate (ER) [Toprol Xl] 100 mg PO DAILY Irbesartan [Avapro] 75 mg PO DAILY Warfarin Sodium 4 mg PO HS No Action Ipratropium [place] 0.06%Nasal [Atrovent Nasal 0.06%] 2 spr EA NOSTRIL BID PRN PRN Reason: Allergy Symptoms Discharge Medication List Ipratropium [place] 0.06%Nasal [Atrovent Nasal 0.06%] 2 spr EA NOSTRIL BID PRN 04/12/22 [History] Albuterol Nebulized [Ventolin Nebulized] 2.5 mg INHALATION RT-QID PRN ml [Rx] Beclomethasone Dip 80 Mcg/Puff [Qvar 80 mcg] 1 puff INHALATION BID #8.7 gm 04/17/22 [Rx] Furosemide [Lasix] 40 mg PO DAILY tab 04/17/22 [Rx] Ipratropium-Albuterol Nebulize [Duoneb 0.5 mg-3 mg/3 ml Soln] 3 ml INHALATION TID each 04/17/22 [Rx] Metoprolol Tartrate [Lopressor] 50 mg PO TID tab 04/17/22 [Rx] guaiFENesin [Mucinex] 600 mg PO QID tab 04/17/22 [Rx] Follow up Appointment(s)/Referral(s): Olivia Palafox MD [STAFF PHYSICIAN] - 10 Days Facundo Griffin MD [Primary Care Provider] - 1-2 days
--- NOTE | 2022-04-18 13:44 | CA ---
Transthoracic Echo Report Name: Birgit Lancaster Age: 82 Gender: F : 1940 Exam Date: 04/13/2022 13:30 Exam Location: [place] [facility] Ht (in): 69 Wt (lb): 234 Ordering Physician: Olivia Palafox MD ([id number]) Attending/Referring Phys: Control Systems Drafting Officer Shelley Funes RDCS Procedure CPT: Indications: EF function Cardiac Hx: Technical Quality: Technically difficult study Contrast 1: Total Dose (mL): Contrast 2: Total Dose (mL): MEASUREMENTS (Male / Female) Normal Values 2D ECHO LV Diastolic Diameter PLAX 1.6 cm 4.2 - 5.9 / 3.9 - 5.3 cm LV Systolic Diameter PLAX 1.1 cm IVS Diastolic Thickness 1.2 cm 0.6 - 1.0 / 0.6 - 0.9 cm LVPW Diastolic Thickness 1.6 cm 0.6 - 1.0 / 0.6 - 0.9 cm LV Relative Wall Thickness 1.8 DOPPLER AV Peak Velocity 356.3 cm/s AV Peak Gradient 50.8 mmHg AV Mean Velocity 263.6 cm/s AV Mean Gradient 30.8 mmHg AV Velocity Time Integral 64.1 cm LVOT Peak Velocity 83.3 cm/s LVOT Peak Gradient 2.8 mmHg MR Peak Velocity 141.3 cm/s MR Peak Gradient 8.0 mmHg TR Peak Velocity 124.5 cm/s TR Peak Gradient 6.2 mmHg Right Ventricular Systolic Press 11.2 mmHg FINDINGS Left Ventricle Moderately increased left ventricular wall thickness. Left ventricular ejection fraction is estimated at 55-60%. Pt in afib. Right Ventricle The right ventricle is normal in size and function. Right Atrium The right atrium is normal in size. Left Atrium The left atrium is normal in size. Mitral Valve Mitral valve thickened. Mitral annular calcification. Mild mitral regurgitation. Aortic Valve Severe aortic stenosis with a peak gradient of 51 mmHg, mean gradient 31 mmHg. Max velocity 4.1m/s. No aortic regurgitation. Tricuspid Valve Mild tricuspid regurgitation. Normal right systolic pressure Pulmonic Valve Structurally normal pulmonic valve without significant stenosis. There is no pulmonic regurgitation. Pericardium Normal pericardium without effusion. Aorta Normal aortic root dimension. CONCLUSIONS Normal left ventricular ejection fraction 55-60% Mild mitral regurgitation Severe aortic stenosis with maximum velocity 4.1 m/s Mild tricuspid regurgitation Previewed by: Dr. Shant Mccray DO (Electronically Signed) Final Date: 18 April 2022 13:43
--- NOTE | 2022-04-19 10:24 | CDI ---
Documentation Clarification Form Date: 04/17/2022 12:53:00 PM From: Barbara Jessica RN, CCDS Admit Date: 04/12/2022 03:01:00 PM Patient Name: Birgit Lancaster Visit Number: [id number] Discharge Date: 04/17/2022 03:34:00 PM ATTENTION: The Clinical Documentation Specialists (CDI) and [facility] Coding Staff appreciate your assistance in clarifying documentation. Please respond to the clarification below the line at the bottom and electronically sign. The CDI & [facility] Coding staff will review the response and follow-up if needed. Please note: Queries are made part of the Legal Health Record. If you have any questions, please contact the author of this message via ITS. Dr. Greg Sierra Your patient has the documented diagnosis of unspecified acute congestive heart failure exacerbation in the H/P and subsequent progress notes. Additional information regarding the type of CHF is requested. History/Risk Factors: Atrial Fibrillation, Hypertension, CHF, Valve replacement Clinical Indicators: 82-year-old female present with general weakness. Respiratory exam in ED has normal lung sounds bilaterally. EKG A. FIB with RVR rate 118. Acute congestive heart failure exacerbation possibly precipitated by atrial fibrillation is documented. 04/12 VS/Pulse OX: 139/98 112 20 97.9 95 % RA 04/13 BNP: 4940 04/13 Echocardiogram Results: Moderately increased left ventricular wall thickness. Left ventricular EF is estimated at 55-60 % 04/12 Chest X Ray: There is cardiomegaly with pulmonary venous congestion scattered interstitial edema. No focal consolidation seen. Treatment: Cardiac/Telemetry monitoring Lasix 20 MG IV Q 12 HR 04/12-04/13 Lasix 40MG PO Daily 04/14-04/17 Toprol Xl 100 MG PO Daily 04/12-04/13 Lopressor 50 MG PO TID In your professional opinion, can you please clarify the [acuity and type] of CHF if known? [ ] Acute Diastolic Heart Failure (preserved EF) [ ] Chronic Diastolic Heart Failure (preserved EF) [ ] Acute on Chronic Diastolic Heart Failure (preserved EF) [ ] Other, please specify [ ] Unable to determine (Template Last Revised: November 2020) Acute on chronic diastolic heart failure from EF 55-60% preserved EF MTDD
== END 2022-04-17 15:34 | DRG 604 ==
LOC: EC 11:33 → 3SCARD 15:01
PROVIDERS: ADMIT Hospitalist; ATTEND Hospitalist
PROC: 30233K1 Transfusion of Nonautologous Frozen Plasma into Peripheral Vein, Percutaneous Approach (ICD-10-PCS; principal; 2022-04-13)
PROC: 30233N1 Transfusion of Nonautologous Red Blood Cells into Peripheral Vein, Percutaneous Approach (ICD-10-PCS; 2022-04-15)
DX: S20.212A Contusion of left front wall of thorax, initial encounter (principal); I50.33 Acute on chronic diastolic (congestive) heart failure; D68.32 Hemorrhagic disorder due to extrinsic circulating anticoagulants; I48.19 Other persistent atrial fibrillation; D62 Acute posthemorrhagic anemia; I48.92 Unspecified atrial flutter; J44.1 Chronic obstructive pulmonary disease with (acute) exacerbation; D68.4 Acquired coagulation factor deficiency; I11.0 Hypertensive heart disease with heart failure; E66.9 Obesity, unspecified; I83.012 Varicose veins of right lower extremity with ulcer of calf; S81.811A Laceration without foreign body, right lower leg, initial encounter; I95.9 Hypotension, unspecified; T45.515A Adverse effect of anticoagulants, initial encounter; E86.0 Dehydration; W01.0XXA Fall on same level from slipping, tripping and stumbling without subsequent striking against object, initial encounter; H91.90 Unspecified hearing loss, unspecified ear; H93.19 Tinnitus, unspecified ear; S20.213A Contusion of bilateral front wall of thorax, initial encounter; R53.81 Other malaise; D49.59 Neoplasm of unspecified behavior of other genitourinary organ; R01.1 Cardiac murmur, unspecified; M54.32 Sciatica, left side; M54.31 Sciatica, right side; M17.11 Unilateral primary osteoarthritis, right knee; M47.816 Spondylosis without myelopathy or radiculopathy, lumbar region; M43.8X8 Other specified deforming dorsopathies, sacral and sacrococcygeal region; R60.0 Localized edema; I89.0 Lymphedema, not elsewhere classified; Z74.09 Other reduced mobility; T14.8XXA Other injury of unspecified body region, initial encounter; Z68.35 Body mass index [BMI] 35.0-35.9, adult; Y92.009 Unspecified place in unspecified non-institutional (private) residence as the place of occurrence of the external cause; Z79.01 Long term (current) use of anticoagulants; Z88.2 Allergy status to sulfonamides; Z95.3 Presence of xenogenic heart valve; Z97.4 Presence of external hearing-aid; Z87.891 Personal history of nicotine dependence; Z79.899 Other long term (current) drug therapy; Z91.81 History of falling
CPT/HCPCS: 36415; 71045; 71046; 72193; 72220; 76856; 80048; 80053; 81001; 81503; 83605; 83735; 83880; 84100; 84439; 84443; 84481; 84484; 85025; 85027; 85610; 85730; 86850; 86900; 86901; 86920; 87086; 87635; 93005; 93306; 94640; 96365; 96366; 96375; 96376; 99285

== ENCOUNTER 2022-05-30 19:18 | Inpatient (IN) | payer MEDICARE ==
--- NOTE | 2022-05-30 20:29 | ED ---
General Adult HPI - General Chief complaint: Weakness Stated complaint: Possible UTI Time Seen by Provider: 05/30/22 19:19 Source: patient, family, EMS, RN notes reviewed, old records reviewed Mode of arrival: EMS Limitations: no limitations - History of Present Illness Initial comments: 82-year-old female presents from intermediate for evaluation of fever and generalized weakness. Patient had urinary specimen sent this morning and had a fever of 102. She does admit a mild cough. No abdominal pain or chest pain. Patient's states her weakness has been present for at least a month. - Related Data Home Medications Medication Instructions Recorded Confirmed Ipratropium [place] 0.06%Nasal 2 spr EA NOSTRIL BID PRN 04/12/22 04/12/22 [Atrovent Nasal 0.06%] Previous Rx's Medication Instructions Recorded Albuterol Nebulized [Ventolin 2.5 mg INHALATION RT-QID PRN ml 04/17/22 Nebulized] Beclomethasone Dip 80 Mcg/Puff 1 puff INHALATION BID #8.7 gm 04/17/22 [Qvar 80 mcg] Furosemide [Lasix] 40 mg PO DAILY tab 04/17/22 Ipratropium-Albuterol Nebulize 3 ml INHALATION TID each 04/17/22 [Duoneb 0.5 mg-3 mg/3 ml Soln] Metoprolol Tartrate [Lopressor] 50 mg PO TID tab 04/17/22 guaiFENesin [Mucinex] 600 mg PO QID tab 04/17/22 Allergies Allergy/AdvReac Type Severity Reaction Status Date / Time Sulfa (Sulfonamide AdvReac Agitation Verified 04/12/22 15:03 Antibiotics) Review of Systems ROS Statement: Those systems with pertinent positive or pertinent negative responses have been documented in the HPI. ROS Other: All systems not noted in ROS Statement are negative. Past Medical History Past Medical History: Atrial Fibrillation, Hypertension, Musculoskeletal Disorder Additional Past Medical History / Comment(s): History of severe arthritis at the right knee History of Any Multi-Drug Resistant Organisms: None Reported Past Surgical History: Cardiac Valve Replacement Additional Past Surgical History / Comment(s): open heart, valve replacement Past Psychological History: No Psychological Hx Reported Smoking Status: Never smoker Past Alcohol Use History: Occasional Past Drug Use History: None Reported General Exam General appearance: alert, in no apparent distress Head exam: Present: atraumatic, normocephalic Eye exam: Present: normal appearance, PERRL ENT exam: Present: mucous membranes dry Neck exam: Present: normal inspection. Absent: tenderness, meningismus Respiratory exam: Present: rhonchi. Absent: respiratory distress Cardiovascular Exam: Present: tachycardia, irregular rhythm GI/Abdominal exam: Present: soft, distended. Absent: tenderness, guarding, rebound Extremities exam: Present: pedal edema, other (There is a 1 cm by 3 cm open wo und on the medial aspect of the right calf) Neurological exam: Present: alert, oriented X3. Absent: motor sensory deficit Psychiatric exam: Present: normal affect, normal mood Skin exam: Present: warm, dry. Absent: cyanosis, diaphoretic Course Vital Signs 05/30/22 19:19 Temperature 99.9 F H Pulse Rate 105 H Respiratory 16 Rate Blood Pressure 121/62 O2 Sat by Pulse 94 L Oximetry Medical Decision Making - Medical Decision Making 82-year-old female with fever, concern for UTI. Patient had outpatient urine test performed today which was quite turbid and concerning for urinary tract infection. Urine pending in the emergency department. She has normal white blood cell count, improved hemoglobin. Her lactic acid is normal. Coronavirus testing negative. I discussed case with Dr. Uribe. Will admit for IV antibiotics for concern for UTI. - Lab Data Result diagrams: 05/30/22 20:05 05/30/22 20:05 Lab Results 05/30/22 05/30/22 05/30/22 Range/Units 20:05 20:05 20:05 WBC 10.1 (3.8-10.6) k/uL RBC 4.28 (3.80-5.40) m/uL Hgb 12.4 (11.4-16.0) gm/dL Hct 40.1 (34.0-46.0) % MCV 93.8 (80.0-100.0) fL MCH 28.9 (25.0-35.0) pg MCHC 30.8 L (31.0-37.0) g/dL RDW 14.3 (11.5-15.5) % Plt Count 95 L D (150-450) k/uL MPV 11.5 Neutrophils % 82 % Lymphocytes % 10 % Monocytes % 6 % Eosinophils % 0 % Basophils % 0 % Neutrophils # 8.3 H (1.3-7.7) k/uL Lymphocytes # 1.0 (1.0-4.8) k/uL Monocytes # 0.6 (0-1.0) k/uL Eosinophils # 0.0 (0-0.7) k/uL Basophils # 0.0 (0-0.2) k/uL Hypochromasia Moderate PT (9.0-12.0) sec INR (<1.2) APTT (22.0-30.0) sec Sodium 136 L (137-145) mmol/L Potassium 3.8 (3.5-5.1) mmol/L Chloride 95 L (98-107) mmol/L Carbon Dioxide 31 H (22-30) mmol/L Anion Gap 10 mmol/L BUN 26 H (7-17) mg/dL Creatinine 0.95 (0.52-1.04) mg/dL Est GFR (CKD-EPI)AfAm 64 (>60 ml/min/1.73 sqM) Est GFR (CKD-EPI)NonAf 56 (>60 ml/min/1.73 sqM) Glucose 101 H (74-99) mg/dL Plasma Lactic Acid Jayce 1.6 (0.7-2.0) mmol/L Calcium 9.1 (8.4-10.2) mg/dL Magnesium 1.9 (1.6-2.3) mg/dL Total Bilirubin 1.2 (0.2-1.3) mg/dL AST 26 (14-36) U/L ALT 12 (4-34) U/L Alkaline Phosphatase 84 (38-126) U/L Total Protein 6.2 L (6.3-8.2) g/dL Albumin 3.5 (3.5-5.0) g/dL Coronavirus (PCR) (Not Detectd) 05/30/22 05/30/22 Range/Units 20:05 20:16 WBC (3.8-10.6) k/uL RBC (3.80-5.40) m/uL Hgb (11.4-16.0) gm/dL Hct (34.0-46.0) % MCV (80.0-100.0) fL MCH (25.0-35.0) pg MCHC (31.0-37.0) g/dL RDW (11.5-15.5) % Plt Count (150-450) k/uL MPV Neutrophils % % Lymphocytes % % Monocytes % % Eosinophils % % Basophils % % Neutrophils # (1.3-7.7) k/uL Lymphocytes # (1.0-4.8) k/uL Monocytes # (0-1.0) k/uL Eosinophils # (0-0.7) k/uL Basophils # (0-0.2) k/uL Hypochromasia PT 13.1 H (9.0-12.0) sec INR 1.3 H (<1.2) APTT 26.7 (22.0-30.0) sec Sodium (137-145) mmol/L Potassium (3.5-5.1) mmol/L Chloride (98-107) mmol/L Carbon Dioxide (22-30) mmol/L Anion Gap mmol/L BUN (7-17) mg/dL Creatinine (0.52-1.04) mg/dL Est GFR (CKD-EPI)AfAm (>60 ml/min/1.73 sqM) Est GFR (CKD-EPI)NonAf (>60 ml/min/1.73 sqM) Glucose (74-99) mg/dL Plasma Lactic Acid Jayce (0.7-2.0) mmol/L Calcium (8.4-10.2) mg/dL Magnesium (1.6-2.3) mg/dL Total Bilirubin (0.2-1.3) mg/dL AST (14-36) U/L ALT (4-34) U/L Alkaline Phosphatase (38-126) U/L Total Protein (6.3-8.2) g/dL Albumin (3.5-5.0) g/dL Coronavirus (PCR) Not Detected (Not Detectd) Disposition Clinical Impression: Weakness, UTI (urinary tract infection) Disposition: ADMITTED IP TO THIS HOSP Condition: Stable Is patient prescribed a controlled substance at d/c from ED?: No Referrals: Facundo Griffin MD [REFERRING] - 1-2 days Time of Disposition: 20:58
[2022-05-30 20:39] LABS: Albumin 3.5 g/dL (3.5-5.0); Basophils % (A) 0 %; Calcium 9.1 mg/dL (8.4-10.2); Eosinophils % (A) 0 %; HCT 40.1 % (34.0-46.0); HGB 12.4 gm/dL (11.4-16.0); Hypochromasia Moderate; Lymphocytes % (A) 10 %; MCH 28.9 pg (25.0-35.0); MCHC 30.8 g/dL (31.0-37.0); MCV 93.8 fL (80.0-100.0); Magnesium 1.9 mg/dL (1.6-2.3); Mean Platelet Volume 11.5; Monocytes # (A) 0.6 k/uL (0-1.0); Monocytes % (A) 6 %; Neutrophils # (A) 8.3 k/uL (1.3-7.7); Neutrophils % (A) 82 %; Potassium 3.8 mmol/L (3.5-5.1); RBC 4.28 m/uL (3.80-5.40); RDW 14.3 % (11.5-15.5); Total Bilirubin 1.2 mg/dL (0.2-1.3); Total Protein 6.2 g/dL (6.3-8.2); WBC 10.1 k/uL (3.8-10.6)
[2022-05-30 20:40] LABS: INR 1.3 (<1.2); Partial Thromboplastin Time 26.7 sec (22.0-30.0); Prothrombin Time 13.1 sec (9.0-12.0)
[2022-05-30] MEDS ORDERED: cefTRIAXone IN SWFI 1,000 MG/10 ML SYRINGE IVP STA ×2 (20:47→21:03)
[2022-05-30 20:48] LABS: Platelet Count 95 k/uL (150-450)
[2022-05-30] MEDS ORDERED: ACETAMINOPHEN TAB 325 MG TAB PO PRN (20:52)
[2022-05-30] MEDS ORDERED: NALOXONE 0.4 MG/ML 1 ML VIAL IV PRN (20:52)
--- NOTE | 2022-05-30 21:00 | XR ---
EXAMINATION TYPE: XR chest 1V portable DATE OF EXAM: 05/30/2022 COMPARISON: 04/15/2022 HISTORY: Fever TECHNIQUE: FINDINGS: There is some coarsening of the pulmonary interstitial markings. No obvious heart failure. There are sternal wires. There is right shoulder prosthesis. No definite pleural effusion. IMPRESSION: Increased interstitial markings compared to last exam. This could be mild interstitial pn eumonia.
[2022-05-30] MEDS ORDERED: AZITHROMYCIN 500 MG in SODIUM CHLORIDE 0.9% 250 ML IVPB STA (21:03)
[2022-05-31] MEDS ORDERED: ALBUTEROL NEBULIZED 2.5 MG/3 ML INHALATION PRN (10:36)
[2022-05-31] MEDS ORDERED: METHYL SALICYLATE/MENTHOL CREAM 5 OZ TOPICAL PRN (10:36)
[2022-05-31] MEDS ORDERED: IPRATROPIUM BROMIDE 0.06% NASAL SPRAY (15 ML) EA NOSTRIL PRN (10:36)
[2022-05-31] MEDS ORDERED: MAGNESIUM HYDROXIDE 2,400 MG/10 ML CUP PO PRN (10:36)
[2022-05-31] MEDS ORDERED: NA PHOS,M-B/NA PHOS,DI-BA 133 ML ENEMA RECTAL PRN (10:36)
[2022-05-31] MEDS ORDERED: bisacodyL 10 MG SUPP RECTAL PRN (10:36)
[2022-05-31] MEDS ORDERED: AMPICILLIN-SULBACTAM 3 GM in SODIUM CHLORIDE 0.9% 100 ML IVPB SCH (11:00)
[2022-05-31] MEDS: IPRATROPIUM-ALBUTEROL 3 ML NEB INHALATION SCH ×2 (11:18→21:52)
[2022-05-31] MEDS: ACETAMINOPHEN TAB 325 MG TAB PO PRN (12:38)
[2022-05-31] MEDS: METOPROLOL TARTRATE 50 MG TAB PO SCH ×2 (13:08→20:13)
[2022-05-31 13:40] LABS: Appearance,Urine Turbid (Clear); Bacteria,Urine Few /hpf; Bilirubin,Urine Negative (Negative); Blood,Urine Moderate (Negative); Color,Urine Yellow; Glucose,Urine (UA) Negative (Negative); Ketones,Urine Negative (Negative); Leukocyte Esterase,Urine Large (Negative); Mucus,Urine Rare /hpf; Nitrite,Urine Negative (Negative); Protein,Urine 2+ (Negative); RBC,Urine 16 /hpf (0-5); Specific Gravity,Urine 1.017 (1.001-1.035); Squamous Epithelial Cell,Urine 4 /hpf (0-4); Urobilinogen,Urine <2.0 mg/dL (<2.0); WBC,Urine >182 /hpf (0-5)
[2022-05-31] MEDS ORDERED: AZITHROMYCIN 500 MG in SODIUM CHLORIDE 0.9% 250 ML IVPB SCH (15:00)
[2022-05-31] MEDS: FLUTICASONE 110 MCG INHALER INHALATION SCH (15:20)
[2022-05-31] MEDS ORDERED: PIPERACILLIN-TAZOBACTAM 3.375 GM in SODIUM CHLORIDE 0.9% 100 ML IVPB SCH (16:00)
[2022-05-31] MEDS: FERROUS SULFATE 325 MG TAB PO SCH (16:11)
[2022-05-31] MEDS: FUROSEMIDE 10 MG/ML 4 ML VIAL IV SCH ×2 (16:11→20:07)
[2022-05-31] MEDS: CHOLECALCIFEROL 25 MCG (1000 IU) TABLET PO SCH (16:11)
[2022-05-31] MEDS ORDERED: VANCOMYCIN IV PER PHARMACY 1 EACH MISC MISCELLANE PRN (17:01)
[2022-05-31] MEDS ORDERED: VANCOMYCIN 1,250 MG in SODIUM CHLORIDE 0.9% 250 ML IVPB ONE (18:00)
--- NOTE | 2022-05-31 18:00 | CT ---
EXAMINATION TYPE: CT chest wo con DATE OF EXAM: 05/31/2022 COMPARISON: None HISTORY: CAP CT DLP: 347 mGycm Automated exposure control for dose reduction was used. Images obtained from the thoracic inlet to the diaphragm without contrast. The thoracic aorta is atheromatous. There is 3.8 cm ascending aorta. There is dense coronary artery c alcification. There is extensive bronchial cartilage calcification. No mediastinal adenopathy. There are no hilar masses. Heart is enlarged. No pericardial effusion. There is some coarse linear density at the lung bases consistent with scarring and atelectasis. No pleural effusion. No pericardial effus ion. There are sternal wires. The thoracic spine is intact. IMPRESSION: Mild fibrotic changes and subsegmental atelectasis at the lung bases. Cardiomegaly. Atherosclerotic v ascular disease. No suspicious pulmonary mass.
[2022-05-31] MEDS: AMMONIUM LACTATE 12% CREAM 140 GM TUBE TOPICAL SCH (19:00)
[2022-05-31] MEDS: COLLAGENASE 250 UNIT/GM OINTMENT 30 GM TUBE TOPICAL SCH (19:16)
--- NOTE | 2022-05-31 21:25 | P.CONS ---
History of Present Illness - Reason for Consult Consult date: 05/31/22 - History of Present Illness Patient is a 82-year-old female with multiple comorbidities presenting to the hospital for evaluation of generalized weakness and fever apparently the patient did have a fever of 102 degrees formulae and has been complaining of weakness and difficulty ambulation and moving around patient denies having any headache or URI symptoms denies having any chest pain or shortness of breath o ccasional cough no sputum production no nausea no vomiting and no diarrhea did have some urinary symptoms presentation the hospital patient did have a fever of 29.9 subsequently fever of 100.8 degrees for right patient was tachycardic she did have a normal white count BUN was mildly elevated creatinine was normal liver enzymes are normal patient did have a positive UA COVID testing was negative patient did have a chest x-ray increased interstitial marking comparing to the last exam patient did have a blood cultures come back positive with the gram-negative bacilli patient was initially on Rocephin and Zithromax subsequently Zosyn was added infectious disease was consulted for further management of antibiotic therapy Past Medical History Past Medical History: Atrial Fibrillation, Hypertension, Musculoskeletal Disorder Additional Past Medical History / Comment(s): History of severe arthritis at the right knee History of Any Multi-Drug Resistant Organisms: None Reported Past Surgical History: Cardiac Valve Replacement Additional Past Surgical History / Comment(s): open heart, valve replacement Past Psychological History: No Psychological Hx Reported Smoking Status: Former smoker Past Alcohol Use History: Occasional Past Drug Use History: None Reported Medications and Allergies Home Medications Medication Instructions Recorded Confirmed Type Ipratropium [place] 0.06%Nasal 2 spr EA NOSTRIL BID PRN 04/12/22 05/30/22 History [Atrovent Nasal 0.06%] Albuterol Nebulized [Ventolin 2.5 mg INHALATION RT-QID PRN ml 04/17/22 05/30/22 Rx Nebulized] Acetaminophen Tab [Tylenol] 650 mg PO Q4H PRN 05/30/22 05/30/22 History Ammonium Lactate Cream [Lac-Hydrin 1 applic TOPICAL DAILY 05/30/22 05/30/22 History 12% Cream] Beclomethasone Dipropionate [Qvar 1 puff INHALATION RT-BID@0800,1700 05/30/22 05/30/22 History 80mcg Redihaler] Cholecalciferol [Vitamin D3 (25 100 mcg PO DAILY@1700 05/30/22 05/30/22 History Mcg = 1000 Iu)] Collagenase [Santyl Ointment] 1 applic TOPICAL DAILY 05/30/22 05/30/22 History Ferrous Sulfate [Feosol] 325 mg PO DAILY@1700 05/30/22 05/30/22 History Furosemide [Lasix] 40 mg PO DAILY@0800 05/30/22 05/30/22 History Ipratropium-Albuterol Nebulize 3 ml INHALATION RT-TID@08,,05/30/22 05/30/22 History [Duoneb 0.5 mg-3 mg/3 ml Soln] Magnesium Hydroxide [Milk of 7,200 mg PO DAILY PRN 05/30/22 05/30/22 History Magnesia Concentrate] Menthol [Biofreeze] 1 applic TOPICAL TID PRN 05/30/22 05/30/22 History Metoprolol Tartrate [Lopressor] 50 mg PO TID@0800,1400,2100 05/30/22 05/30/22 History Na Phos,M-B/Na Phos,Di-Ba [Fleet 133 ml RECTAL DAILY PRN 05/30/22 05/30/22 History Adult] Sennosides [Senokot] 17.2 mg PO DAILY@0805/30/22 05/30/22 History bisacodyL [Dulcolax] 10 mg RECTAL DAILY PRN 05/30/22 05/30/22 History Allergies Allergy/AdvReac Type Severity Reaction Status Date / Time Sulfa (Sulfonamide AdvReac Agitation Verified 05/30/22 23:16 Antibiotics) Physical Exam Vitals: Vital Signs Temp Pulse Pulse Pulse Resp BP BP 05/31/22 13:10 120 H 115/70 05/31/22 11:31 78 05/31/22 11:29 100.8 F H 108 H 15 121/83 05/31/22 11:20 76 05/31/22 07:44 98.4 F 120 H 18 130/68 05/31/22 06:20 112 H 18 130/78 05/30/22 19:19 99.9 F H 105 H 16 121/62 Pulse Ox 05/31/22 13:10 05/31/22 11:31 05/31/22 11:29 100 05/31/22 11:20 05/31/22 07:44 96 05/31/22 06:20 97 05/30/22 19:19 94 L Intake and Output 05/31/22 05/31/22 05/31/22 06:59 14:59 22:59 Other: Voiding Method External Catheter Weight 72.575 kg Results CBC & Chem 7: 05/30/22 20:05 05/30/22 20:05 Labs: Abnormal Lab Results - Last 24 Hours (Table) 05/30/22 05/30/22 05/30/22 Range/Units 20:05 20:05 20:05 MCHC 30.8 L (31.0-37.0) g/dL Plt Count 95 L D (150-450) k/uL Neutrophils # 8.3 H (1.3-7.7) k/uL PT 13.1 H (9.0-12.0) sec INR 1.3 H (<1.2) Sodium 136 L (137-145) mmol/L Chloride 95 L (98-107) mmol/L Carbon Dioxide 31 H (22-30) mmol/L BUN 26 H (7-17) mg/dL Glucose 101 H (74-99) mg/dL Total Protein 6.2 L (6.3-8.2) g/dL Urine Appearance (Clear) Urine Protein (Negative) Urine Blood (Negative) Ur Leukocyte Esterase (Negative) Urine RBC (0-5) /hpf Urine WBC (0-5) /hpf Urine WBC Clumps (None) /hpf Urine Bacteria (None) /hpf Urine Mucus (None) /hpf 05/31/22 Range/Units 12:49 MCHC (31.0-37.0) g/dL Plt Count (150-450) k/uL Neutrophils # (1.3-7.7) k/uL PT (9.0-12.0) sec INR (<1.2) Sodium (137-145) mmol/L Chloride (98-107) mmol/L Carbon Dioxide (22-30) mmol/L BUN (7-17) mg/dL Glucose (74-99) mg/dL Total Protein (6.3-8.2) g/dL Urine Appearance Turbid H (Clear) Urine Protein 2+ H (Negative) Urine Blood Moderate H (Negative) Ur Leukocyte Esterase Large H (Negative) Urine RBC 16 H (0-5) /hpf Urine WBC >182 H (0-5) /hpf Urine WBC Clumps Many H (None) /hpf Urine Bacteria Few H (None) /hpf Urine Mucus Rare H (None) /hpf Microbiology - Last 24 Hours (Table) 05/30/22 21:14 Blood Culture Gram Stain - Preliminary Blood 05/30/22 21:14 Blood Culture - Final Blood Assessment and Plan Plan: 1patient presented to hospital with sepsis in this patient did have a fever tachycardia urinary symptoms positive UA likely urinary source and likely from enteric gram-negative pathogen. 2gram-negative bacteremia likely secondary urinary source clinically doubt pneumonia. 3discontinue vancomycin and Zosyn as well as Zithromax. 4start the patient on Rocephin 2 g daily. 5check ultrasound of the kidney bladder area to make sure no evidence of any structural normality. We will follow on clinical condition and cultures to further adjust medication if needed Thank you for this consultation will follow this patient along with you Time with Patient: Greater than 30
--- NOTE | 2022-06-01 01:06 | HP ---
HISTORY AND PHYSICAL HISTORY OF PRESENT ILLNESS: An 82-year-old white female admitted to hospital with fever, chills, septic, came to the emergency room from sent to the hospital to work her up for possible pneumonia versus urosepsis where she had a severely foul smelling urine at the senior care. She had fevers of 102, cough. She was negative for COVID, although COVID was spreading over in [facility] where she came from. She has been weak for at least a month. She has severe aortic stenosis for which Cardiology wants another echo done. She has seen oncologist down in [place] who wants her to have her MRI of the abdomen and pelvis for severely enlarged 22 cm abdominal pelvic mass, which has been ordered. She came back with gram-negative bacilli in the blood today for which we started her on Zosyn and Dr. Bland, infectious disease has been consulted. She has increased interstitial markings for pneumonia and chest x-ray report. A CT of the chest has been ordered. We repeated the echo which Cardiology also wanted. She is being treated with sepsis most likely from severe UTI versus pneumonia, which will be healthcare acquired pneumonia from senior care. HOME MEDICATIONS: See list. PAST SURGICAL HISTORY: See list including aortic valve replacement in the past, PAST MEDICAL HISTORY: History of atrial fibrillation, hypertension, hypoxemia at night. She is going to need oxygen at 2 L at night. SOCIAL HISTORY: Smoking, she does not smoke. She has severely enlarged legs which have progressively gotten worse since being at the senior care for a month secondary to CHF. PHYSICAL EXAMINATION: GI: Soft. RESPIRATORY: Scattered rhonchi. CARDIOVASCULAR: S1, S2. Tachycardic, irregularly irregular rhythm. NEUROLOGIC: Alert and orient x3. PSYCH: Fair mood and affect. SKIN: Redness and swelling to the lower legs with mild wounds due to lymphedema versus CHF, multiple tests have been ordered. VITAL SIGNS: Temp 99.5 currently, pulse 105, respiratory rate 16 to 18, blood pressure 121/62, and O2 94. ASSESSMENT: 1. Urosepsis. 2. Acute on chronic congestive heart failure. 3. Nocturnal hypoxemia. 4. Thrombocytopenia. cardiology consult for atrial fibrillation and rapid ventricular response. Check iron counts, started on iron replacement. She has bacteremia with gram-negative bacilli, unclear etiology. Wait for Infectious Disease consult. Started on Zosyn empirically. Repeat blood cultures. PROGNOSIS: Extremely guarded. MMODL / IJN: [id number] /
[2022-06-01 04:55] LABS: African American GFR (CKD) 66 (>60 ml/min/1.73 sqM); Anion Gap 10 mmol/L; Blood Urea Nitrogen 26 mg/dL (7-17); Calcium 8.6 mg/dL (8.4-10.2); Carbon Dioxide 27 mmol/L (22-30); Chloride 96 mmol/L (98-107); Glucose 103 mg/dL (74-99); Non-African American GFR(CKD) 58 (>60 ml/min/1.73 sqM); Potassium 3.4 mmol/L (3.5-5.1); Sodium 133 mmol/L (137-145)
[2022-06-01] MEDS: METOPROLOL TARTRATE 50 MG TAB PO SCH (07:48)
[2022-06-01] MEDS: FUROSEMIDE 10 MG/ML 4 ML VIAL IV SCH ×2 (07:48→21:22)
[2022-06-01] MEDS: SENNOSIDES 8.6 MG TAB PO SCH (07:48)
[2022-06-01] MEDS: AMMONIUM LACTATE 12% CREAM 140 GM TUBE TOPICAL SCH (07:49)
[2022-06-01] MEDS: COLLAGENASE 250 UNIT/GM OINTMENT 30 GM TUBE TOPICAL SCH (07:49)
[2022-06-01] MEDS: IPRATROPIUM-ALBUTEROL 3 ML NEB INHALATION SCH ×3 (07:53→20:07)
[2022-06-01] MEDS: FLUTICASONE 110 MCG INHALER INHALATION SCH ×2 (07:54→20:07)
[2022-06-01] MEDS ORDERED: FUROSEMIDE 40 MG TAB PO SCH (08:00)
[2022-06-01] MEDS ORDERED: VANCOMYCIN 1,250 MG in SODIUM CHLORIDE 0.9% 250 ML IVPB SCH (09:00)
--- NOTE | 2022-06-01 12:03 | MR ---
EXAMINATION TYPE: MR pelvis wo/w con DATE OF EXAM: 06/01/2022 COMPARISON: CT pelvis 04/12/2022 CLINICAL INDICATION:Female, 82 years old with history of abdominal pelvic mass TECHNIQUE: Triplane multisequence imaging was performed of the pelvis. IV Contrast: 7 cc Gadavist FINDINGS: Reproductive: Vagina: Unremarkable. Uterus: The uterus is retroverted in position. Uterus measures 6.6 x 2.7 x 4.2 cm. There is a heterog enous and thickened endometrium measuring up to 18 mm. There is a heterogenous appearance to the lowe r cervical canal present which is increased in size. Ovaries: Ovaries are not definitively visualized however there is a cystic structure within the pelvi s just above the urinary bladder and anterior to uterus which is high T2/ low T1 signal with septatio ns measuring approximately 4.5 x 4.2 x 8.3 cm. This appears to extend into the upper abdomen which is out of the [id number] into a large cystic structure seen on prior imaging on 04/12/2022. Bladder: Partially distended without gross abnormality. Bowel: Unremarkable as visualized. Peritoneum: A small amount of free fluid in the pelvis. Large cystic mass partially visualized in the abdomen with multiloculated cystic mass in the pelvis situated just superior to the bladder and a nterior to uterus. Vasculature: Unremarkable. Abdominal wall/soft tissues: Unremarkable. Musculoskeletal: Bilateral iliacus muscle fluid collections which are high T1/T2 signal, measuring at least 7.8 x 2.1 on the left and 4.7 x 1.2 cm on the right. These exit the [id number] superiorly. IMPRESSION: 1. Large septated cystic abdominal mass which is partially visualized and extends into the pelvis. A more loculated smaller cystic mass located just above the bladder is likely connected to the large m ass. 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 2. Heterogenous and thickened endometrium correlation with direct visualization is recommended to ru le out underlying endometrial carcinoma. 3. Fluid collections within the iliacus muscles bilaterally. Represent hematoma given reported histo ry of coagulopathy. Alternatively these may represent abscesses in the appropriate clinical setting.
--- NOTE | 2022-06-01 13:24 | P.CRDCN ---
History of Present Illness History of present illness: HISTORY OF PRESENTING ILLNESS Patient is pleasant 82-year-old female with history of persistent atrial fibrillation, atrial flutter status post prior atrial flutter ablation, hypertension, arthritis, aortic stenosis, previous open heart surgery with reported aortic valve replacement, mitral and tricuspid repair. Patient normally follows with Dr. Carlos from [facility]. Unfortunately over the last 3-4 weeks she has been having increased episodes of feeling weak and fatigued. She had initially previously presented to [facility] after what was more of a mechanical fall and tripping. She has however been feeling weak and tired. She also has been having low-grade fevers. Patient was found to have low-grade fever 100.8 and found to have urinary tract infection as well as E. coli bacteremia. She has been placed on antibiotics. She denies any chest pain or pressure. She has chronic dyspnea on exertion. She has chronic lower extremity edema however the edema has been worse over the last few weeks. Previous echocardiogram from 04/13/2022 showed EF 55-60%, severe aortic stenosis with some discrepancy of maximum velocity 4.1 m/s however mean gradient of 31. It appears she has been feeling weak and denies any obvious lightheadedness or dizziness. Most of her falls appear more mechanical in secondary to weakness and likely sepsis. EKG has not been performed however on exam appears to be in A. fib with mild RVR with heart rates in the 100-110 range. Blood pressures have been stable however heart rates in the 101 20 range on vitals. She has not been on telemetry. Blood work shows BUN 26, creatinine 0.9, proBNP 6690 REVIEW OF SYSTEMS At the time of my exam: CONSTITUTIONAL: Denies fever or chills. CARDIOVASCULAR: Denies chest pain, +shortness of breath, +orthopnea, no PND or palpitations. RESPIRATORY: Denies cough. GASTROINTESTINAL: Denies abdominal pain, diarrhea, constipation, nausea or vomiting. MUSCULOSKELETAL: Denies myalgias. NEUROLOGIC: Denies numbness, tingling or weakness. ENDOCRINE: Denies fatigue, weight change, polydipsia or polyurina. GENITOURINARY: Denies burning, hematuria or urgency with micturation. HEMATOLOGIC: Denies history of anemia or bleeding. PHYSICAL EXAMINATION Vital signs reviewed. CONSTITUTIONAL: No apparent distress. HEENT: Head is normocephalic. Pupils are equal, round. Sclerae anicteric. Mucous membranes of the mouth are moist. No JVD. No carotid bruit. CHEST EXAMINATION: Lungs are clear to auscultation. No chest wall tenderness is noted on palpation or with deep breathing. HEART EXAMINATION: Regular rate and rhythm. S1, S2 heard. No murmurs, gallops or rub. ABDOMEN: Soft, nontender. Positive bowel sounds. EXTREMITIES: 2+ peripheral pulses, 2+ lower extremity edema and no calf tenderness. NEUROLOGIC EXAMINATION: Patient is awake, alert and oriented x3. ASSESSMENT 1. Weakness, decreased appetite likely related to sepsis, urinary tract infection 2. Acute on chronic diastolic heart failure 3. Lower extremity edema likely some component of venous insufficiency plus heart failure 4. Severe aortic stenosis. Some discrepancy in measurements however unclear if she is truly symptomatic from the valve 5. Persistent atrial fibrillation 6. Atrial flutter status post prior atrial flutter ablation 7. E. coli bacteremia 8. Falls, mainly mechanical 9. Status post open-heart surgery and aortic valve replacement, mitral and tricuspid repair per patient PLAN Check EKG and place patient on telemetry. She appears to be in mild RVR currently and likely exacerbated by sepsis. We will however increase metoprolol from 50-75 mg 3 times a day. Continue with diuretics and monitor response. Further assessment per infectious disease regarding infection. Most of her symptoms related to sepsis and would consider further workup of aortic stenosis as an outpatient, unclear if truly symptomatic from aortic stenosis. Unclear reason why patient is not on anticoagulation. Attempt to obtain records from Dr. Carlos's office. Past Medical History Past Medical History: Atrial Fibrillation, Hypertension, Musculoskeletal Disorder Additional Past Medical History / Comment(s): History of severe arthritis at the right knee History of Any Multi-Drug Resistant Organisms: None Reported Past Surgical History: Cardiac Valve Replacement Additional Past Surgical History / Comment(s): open heart, valve replacement Past Psychological History: No Psychological Hx Reported Smoking Status: Former smoker Past Alcohol Use History: Occasional Past Drug Use History: None Reported Medications and Allergies Home Medications Medication Instructions Recorded Confirmed Type Ipratropium [place] 0.06%Nasal 2 spr EA NOSTRIL BID PRN 04/12/22 05/30/22 History [Atrovent Nasal 0.06%] Albuterol Nebulized [Ventolin 2.5 mg INHALATION RT-QID PRN ml 04/17/22 05/30/22 Rx Nebulized] Acetaminophen Tab [Tylenol] 650 mg PO Q4H PRN 05/30/22 05/30/22 History Ammonium Lactate Cream [Lac-Hydrin 1 applic TOPICAL DAILY 05/30/22 05/30/22 History 12% Cream] Beclomethasone Dipropionate [Qvar 1 puff INHALATION RT-BID@0800,1700 05/30/22 05/30/22 History 80mcg Redihaler] Cholecalciferol [Vitamin D3 (25 100 mcg PO DAILY@169905/30/22 05/30/22 History Mcg = 1000 Iu)] Collagenase [Santyl Ointment] 1 applic TOPICAL DAILY 05/30/22 05/30/22 History Ferrous Sulfate [Feosol] 325 mg PO DAILY@169905/30/22 05/30/22 History Furosemide [Lasix] 40 mg PO DAILY@79905/30/22 05/30/22 History Ipratropium-Albuterol Nebulize 3 ml INHALATION RT-TID@08,,05/30/22 05/30/22 History [Duoneb 0.5 mg-3 mg/3 ml Soln] Magnesium Hydroxide [Milk of 7,200 mg PO DAILY PRN 05/30/22 05/30/22 History Magnesia Concentrate] Menthol [Biofreeze] 1 applic TOPICAL TID PRN 05/30/22 05/30/22 History Metoprolol Tartrate [Lopressor] 50 mg PO TID@0800,1400,2100 05/30/22 05/30/22 History Na Phos,M-B/Na Phos,Di-Ba [Fleet 133 ml RECTAL DAILY PRN 05/30/22 05/30/22 History Adult] Sennosides [Senokot] 17.2 mg PO DAILY@79905/30/22 05/30/22 History bisacodyL [Dulcolax] 10 mg RECTAL DAILY PRN 05/30/22 05/30/22 History Allergies Allergy/AdvReac Type Severity Reaction Status Date / Time Sulfa (Sulfonamide AdvReac Agitation Verified 05/30/22 23:16 Antibiotics) Physical Exam Vitals: Vital Signs Temp Pulse Pulse Resp BP Pulse Ox 06/01/22 12:03 90 06/01/22 11:55 98.7 F 95 16 125/64 94 L 06/01/22 11:54 94 06/01/22 07:58 123 H 06/01/22 07:53 100 06/01/22 05:00 98.6 F 92 16 129/75 91 L 05/31/22 21:00 98.9 F 122 H 16 129/73 92 L 05/31/22 16:22 92 113/74 Intake and Output 05/31/22 06/01/22 06/01/22 22:59 06:59 14:59 Intake Total 340 Output Total 200 1100 Balance -200 -760 Intake: Intake, IV Titration 100 Amount Piperacillin-Tazobactam 3 100 .375 gm In Sodium Chloride 0.9% 100 ml @ 25 mls/hr IVPB Q8HR [facility] Rx# :[id number] Oral 240 Output: Urine 200 1100 Other: Voiding Method External Catheter # Voids 3 Results 05/30/22 20:05 06/01/22 03:36 Comprehensive Metabolic Panel 06/01/22 Range/Units 03:36 Sodium 133 L (137-145) mmol/L Potassium 3.4 L (3.5-5.1) mmol/L Chloride 96 L (98-107) mmol/L Carbon Dioxide 27 (22-30) mmol/L BUN 26 H (7-17) mg/dL Creatinine 0.92 (0.52-1.04) mg/dL Glucose 103 H (74-99) mg/dL Calcium 8.6 (8.4-10.2) mg/dL Current Medications Generic Name Dose Route Start Last Admin Trade Name Freq PRN Reason Stop Dose Admin Acetaminophen 650 mg 05/30/22 20:52 05/30/22 21:20 Acetaminophen Tab 325 Mg Tab PO 650 mg Q6HR PRN Administration Mild Pain or Fever > 100.5 Acetaminophen 650 mg 05/31/22 10:36 05/31/22 12:38 Acetaminophen Tab 325 Mg Tab PO 650 mg Q4H PRN Administration Pain or Fever > 100.5 Albuterol Sulfate 2.5 mg 05/31/22 10:36 Albuterol Nebulized 2.5 Mg/3 Ml INHALATION RT-QID PRN Shortness Of Breath Or Wheezing Albuterol/Ipratropium 3 ml 05/31/22 14:00 06/01/22 11:54 Ipratropium-Albuterol 3 Ml Neb INHALATION 3 ml RT-TID@08,, HAIM Administration Bisacodyl 10 mg 05/31/22 10:36 Bisacodyl 10 Mg Supp RECTAL DAILY PRN Constipation Cholecalciferol 100 mcg 05/31/22 17:00 05/31/22 16:11 Cholecalciferol 25 Mcg (1000 Iu) Tablet PO 100 mcg DAILY@1700 HAIM Administration Collagenase 1 applic 05/31/22 10:45 06/01/22 07:49 Collagenase 250 Unit/Gm Ointment 30 Gm Tube TOPICAL 1 applic DAILY [facility] Administration Protocol Ferrous Sulfate 325 mg 05/31/22 17:00 05/31/22 16:11 Ferrous Sulfate 325 Mg Tab PO 325 mg DAILY@1700 [facility] Administration Fluticasone Propionate 1 puff 05/31/22 17:00 06/01/22 07:54 Fluticasone 110 Mcg Inhaler INHALATION 1 puff RT-BID@0800,1700 HAIM Administration Furosemide 40 mg 05/31/22 14:30 06/01/22 07:48 Furosemide 10 Mg/Ml 4 Ml Vial IV 40 mg Q12HR [facility]IM Administration Ceftriaxone Sodium 2 gm/ 50 mls @ 100 mls/hr 05/31/22 22:00 05/31/22 21:37 Sodium Chloride IVPB 100 mls/hr Q24H [facility] Administration Protocol Ipratropium [place] 2 spray 05/31/22 10:36 Ipratropium [place] 0.06% Nasal [place] (15 Ml) EA NOSTRIL BID PRN Allergy Symptoms Lactic Acid 1 applic 05/31/22 10:45 06/01/22 07:49 Ammonium Lactate 12% Cream 140 Gm Tube TOPICAL 1 applic DAILY [facility] Administration Protocol Magnesium Hydroxide 7,200 mg 05/31/22 10:36 Magnesium Hydroxide 2,400 Mg/10 Ml Cup PO DAILY PRN Constipation Methyl Salicylate 1 applic 05/31/22 10:36 Methyl Salicylate/Menthol Cream 5 Oz TOPICAL TID PRN LEFT KNEE PAIN Metoprolol Tartrate 50 mg 05/31/22 14:00 06/01/22 07:48 Metoprolol Tartrate 50 Mg Tab PO 50 mg TID@0800,1400,2100 [facility]IM Administration Naloxone HCl 0.2 mg 05/30/22 20:52 Naloxone 0.4 Mg/Ml 1 Ml Vial IV Q2M PRN Opioid Reversal Senna 17.2 mg 06/01/22 08:00 06/01/22 07:48 Sennosides 8.6 Mg Tab PO 17.2 mg DAILY@0800 [facility] Administration Sodium Biphosphate/Sodium Phosphate 133 ml 05/31/22 10:36 Na Phos,M-B/Na Phos,Di-Ba 133 Ml Enema RECTAL DAILY PRN Constipation Intake and Output 05/31/22 06/01/22 06/01/22 22:59 06:59 14:59 Intake Total 340 Output Total 200 1100 Balance -200 -760 Intake: Intake, IV Titration 100 Amount Piperacillin-Tazobactam 3 100 .375 gm In Sodium Chloride 0.9% 100 ml @ 25 mls/hr IVPB Q8HR [facility] Rx# :[id number] Oral 240 Output: Urine 200 1100 Other: Voiding Method External Catheter # Voids 3 05/30/22 20:05 06/01/22 03:36
[2022-06-01] MEDS: METOPROLOL TARTRATE 25 MG TAB PO SCH ×2 (14:59→21:21)
--- NOTE | 2022-06-01 15:58 | CDI ---
Documentation Clarification Form Date: 06/01/2022 03:40 PM From: Emilia Vanegas RN CCDS Admit Date: 05/30/2022 08:52:00 PM Patient Name: Birgit Lancaster Visit Number: [id number] Discharge Date: ATTENTION: The Clinical Documentation Specialists (CDI) and [facility] Coding Staff appreciate your assistance in clarifying documentation. Please respond to the clarification below the line at the bottom and electronically sign. The CDI & [facility] Coding staff will review the response and follow-up if needed. Please note: Queries are made part of the Legal Health Record. If you have any questions, please contact the author of this message via ITS. Dr. Vickey Uribe The patient presented with the following clinical indicators. Additional clarification regarding the etiology/cause of the clinical indicators is requested. History/Risk Factors: 82-year-old female presents to the ED from [facility] for evaluation of fever and generalized weakness. Has had a fever of 102 and urinary specimen sent this am. Has been ongoing for a month. Medical history: Atrial fibrillation and HTN. 05/30, ED Note. Clinical Indicators: WBC 05/30: 10.1 Neutrophils 05/30: 8.3 Blood cultures: 05/30 Escherichia coli Staphylococcus epidermidis UA 05/30: Appearance: turbid; protein: 2+; Leukocyte esterase: Large; Wbc: >182. Vitals signs: 05/30 B/P 121/62; HR 105; Temp 99.9F Oral; RR 16; SpO2 94% room air Treatment: ID Consult: 05/31 Patient presented to hospital with sepsis in this patient did have a fever tachycardia urinary symptoms positive UA urinary source. Antibiotics: 05/30 Azithromycin IVPB x 1; 05/31 Ampicillin IVPB Q8H; 05/31 Azithromycin IVPB Daily x 3 bags; 05/30 Rocephin IVPB x 1; 05/31 Rocephin IVPB x 1; 05/31 Zoysn IVPB Q8H. In your professional opinion, please clarify if these findings signify one of the following conditions: [ ] Sepsis with UTI POA [ ] Sepsis ruled out, UTI only [ ] Other, please specify [ ] Unable to determine SIRS Criteria: 2 or more of the following may indicate SIRS -Temperature < 96.8F (36C) or > 101.0F (38.3C) -Heart Rate > 90 bpm -Respiratory Rate > 20 breaths/min or PaCO2 < 32 mmHg -White Blood Cell Count > 12,000 or < 4,000 cells/mm3 or > 10% bands (Template Last Reviewed: November 2020) MTDD
[2022-06-01] MEDS: CHOLECALCIFEROL 25 MCG (1000 IU) TABLET PO SCH (17:52)
[2022-06-01] MEDS: FERROUS SULFATE 325 MG TAB PO SCH (17:53)
--- NOTE | 2022-06-01 19:25 | US ---
EXAMINATION TYPE: US kidneys/renal and bladder DATE OF EXAM: 06/01/2022 COMPARISON: Same-day MR CLINICAL HISTORY: uti and bacteremia. UTI limited due to body habitus and large complex area. EXAM MEASUREMENTS: Right Kidney: 8.2 x 4.4 x 4.0 cm Left Kidney: 9.2 x 5.8 x 4.3 cm Redemonstrated, partially imaged large multi septated cystic lesion in the mid abdomen/pelvis measuri ng approximately 25-30 cm. Right Kidney: limited Left Kidney: limited Bladder: anechoic Bilateral Jets seen: no There is no significant hydronephrosis. IMPRESSION: Redemonstrated large abdominal complex cystic lesion, suboptimally evaluated by ultrasound. Please se e MR report for additional details. No significant hydronephrosis.
[2022-06-02] MEDS: FLUTICASONE 110 MCG INHALER INHALATION SCH ×2 (07:47→15:27)
[2022-06-02] MEDS: IPRATROPIUM-ALBUTEROL 3 ML NEB INHALATION SCH ×3 (07:47→20:29)
[2022-06-02] MEDS: FUROSEMIDE 10 MG/ML 4 ML VIAL IV SCH ×2 (08:05→21:46)
[2022-06-02] MEDS: SENNOSIDES 8.6 MG TAB PO SCH (08:05)
[2022-06-02] MEDS: METOPROLOL TARTRATE 25 MG TAB PO SCH ×3 (08:05→21:46)
--- NOTE | 2022-06-02 08:26 | P.PN ---
Subjective Progress Note Date: 06/01/22 Principal diagnosis: UTI and bacteremia Patient is a 82-year-old female with multiple comorbidities presenting to the hospital as weakness and fever patient did have evidence of gram-negative bacteremia secondary to urinary source. On today's evaluation that is 06/01/2022, the patient denies having any fever or any chills, the patient is breathing comfortably, no chest pain shortness of breath or cough no abdominal pain no diarrhea Objective - Vital Signs Vital signs: Vital Signs Temp 98.7 F 06/01/22 11:55 Pulse 90 06/01/22 12:03 Resp 16 06/01/22 11:55 BP 125/64 06/01/22 11:55 Pulse Ox 94 L 06/01/22 11:55 FiO2 Intake & Output 05/31/22 06/01/22 06/01/22 18:59 06:59 18:59 Intake Total 340 Output Total 200 1100 Balance -200 -760 Weight 72.575 kg Intake: Intake, IV Titration 100 Amount Piperacillin-Tazobactam 3 100 .375 gm In Sodium Chloride 0.9% 100 ml @ 25 mls/hr IVPB Q8HR [facility] Rx# :[id number] Oral 240 Output: Urine 200 1100 Other: Voiding Method External Catheter External Catheter # Voids 3 - Exam GENERAL DESCRIPTION: An elderly female lying in bed in no distress RESPIRATORY SYSTEM: Unlabored breathing , decreased breath sounds at bases HEART: S1 S2 regular rate and rhythm , ABDOMEN: Soft , no tenderness EXTREMITIES: Diffuse swelling bilateral lower extremity no redness - Labs CBC & Chem 7: 05/30/22 20:05 06/01/22 03:36 Labs: Abnormal Lab Results - Last 24 Hours (Table) 05/31/22 05/31/22 06/01/22 Range/Units 12:49 14:52 03:36 Sodium 133 L (137-145) mmol/L Potassium 3.4 L (3.5-5.1) mmol/L Chloride 96 L (98-107) mmol/L BUN 26 H (7-17) mg/dL Glucose 103 H (74-99) mg/dL CA 125 Antigen 173.0 H (0.0-30.1) U/mL Urine Appearance Turbid H (Clear) Urine Protein 2+ H (Negative) Urine Blood Moderate H (Negative) Ur Leukocyte Esterase Large H (Negative) Urine RBC 16 H (0-5) /hpf Urine WBC >182 H (0-5) /hpf Urine WBC Clumps Many H (None) /hpf Urine Bacteria Few H (None) /hpf Urine Mucus Rare H (None) /hpf Microbiology - Last 24 Hours (Table) 05/30/22 21:14 Blood Culture Gram Stain - Preliminary Blood Blood Culture - Preliminary Escherichia coli Staphylococcus epidermidis 05/31/22 12:49 Urine Culture - Preliminary Urine,Clean Catch 05/31/22 12:49 Urine Culture - Preliminary Urine,Voided 05/30/22 21:14 Blood Culture - Final Blood Assessment and Plan (1) UTI (urinary tract infection) Current Visit: Yes Status: Acute Code(s): N39.0 - URINARY TRACT INFECTION, SITE NOT SPECIFIED SNOMED Code(s): 55749528 Plan: 1patient presented to hospital with sepsis in this patient did have a fever tachycardia urinary symptoms positive UA likely urinary source and likely from enteric gram-negative pathogen. 2gram-negative bacteremia likely secondary urinary source clinically doubt pneumonia. 3patient to continue with Rocephin 2 g daily while waiting for the culture finalized. 4waiting for the ultrasound of the kidney bladder area to make sure no evidence of any structural normality. Time with Patient: Less than 30
[2022-06-02 09:28] LABS: African American GFR (CKD) 74.1 (60.0-200.0); Albumin 3.1 g/dL (3.8-4.9); Albumin/Globulin Ratio 1.43 (1.60-3.17); Anion Gap 9.9 mmol/L (10.00-18.00); BUN/Creat Ratio 28.72 Ratio (12.00-20.00); Blood Urea Nitrogen 24.1 mg/dL (9.0-27.0); Calcium 8.9 mg/dL (8.7-10.3); Carbon Dioxide 28.6 mmol/L (20.0-27.5); Globulin 2.2 g/dL (1.6-3.3); Non-African American GFR(CKD) 63.9 (60.0-200.0); Potassium 3.2 mmol/L (3.5-5.5); Total Bilirubin 0.3 mg/dL (0.30-1.20); Total Protein 5.3 g/dL (6.2-8.2)
--- NOTE | 2022-06-02 09:59 | CDI ---
Documentation Clarification Form Date: 06/01/2022 03:40 PM From: Emilia Vanegas RN CCDS Admit Date: 05/30/2022 08:52:00 PM Patient Name: Birgit Lancaster Visit Number: [id number] Discharge Date: ATTENTION: The Clinical Documentation Specialists (CDI) and [facility] Coding Staff appreciate your assistance in clarifying documentation. Please respond to the clarification below the line at the bottom and electronically sign. The CDI & [facility] Coding staff will review the response and follow-up if needed. Please note: Queries are made part of the Legal Health Record. If you have any questions, please contact the author of this message via ITS. Dr. Vickey Uribe The patient presented with the following clinical indicators. Additional clarification regarding the etiology/cause of the clinical indicators is requested. History/Risk Factors: 82-year-old female presents to the ED from [facility] for evaluation of fever and generalized weakness. Has had a fever of 102 and urinary specimen sent this am. Has been ongoing for a month. Medical history: Atrial fibrillation and HTN. 05/30, ED Note. Clinical Indicators: WBC 05/30: 10.1 Neutrophils 05/30: 8.3 Blood cultures: 05/30 Escherichia coli Staphylococcus epidermidis UA 05/30: Appearance: turbid; protein: 2+; Leukocyte esterase: Large; Wbc: >182. Vitals signs: 05/30 B/P 121/62; HR 105; Temp 99.9F Oral; RR 16; SpO2 94% room air Treatment: ID Consult: 05/31 Patient presented to hospital with sepsis in this patient did have a fever tachycardia urinary symptoms positive UA urinary source. Antibiotics: 05/30 Azithromycin IVPB x 1; 05/31 Ampicillin IVPB Q8H; 05/31 Azithromycin IVPB Daily x 3 bags; 05/30 Rocephin IVPB x 1; 05/31 Rocephin IVPB x 1; 05/31 Zoysn IVPB Q8H. In your professional opinion, please clarify if these findings signify one of the following conditions: [ ] Sepsis with UTI POA [ ] Sepsis ruled out, UTI only [ ] Other, please specify [ ] Unable to determine SIRS Criteria: 2 or more of the following may indicate SIRS -Temperature < 96.8F (36C) or > 101.0F (38.3C) -Heart Rate > 90 bpm -Respiratory Rate > 20 breaths/min or PaCO2 < 32 mmHg -White Blood Cell Count > 12,000 or < 4,000 cells/mm3 or > 10% bands (Template Last Reviewed: November 2020) MTDD
[2022-06-02 10:11] LABS: Basophils # (A) 0.08 X 10*3/uL (0.00-0.10); Basophils % (A) 1.1 %; Eosinophils # (A) 0.14 X 10*3/uL (0.04-0.35); Eosinophils % (A) 1.8 %; HCT 34.6 % (37.2-46.3); HGB 10.7 g/dL (12.0-15.0); Immature Grans, Automated 0.9 %; Lymphocytes # (A) 1.16 X 10*3/uL (0.90-5.00); Lymphocytes % (A) 15.2 %; MCH 28.2 pg (27.0-32.0); MCHC 30.9 g/dL (32.0-37.0); MCV 91.1 fL (80.0-97.0); Mean Platelet Volume 13.6 fL (9.5-12.2); Monocytes # (A) 0.83 X 10*3/uL (0.20-1.00); Monocytes % (A) 10.9 %; NRBC Per 100 WBC 0 /100 WBCS (0.0-0.0); Neutrophils # (A) 5.33 X 10*3/uL (1.80-7.70); Neutrophils % (A) 70.1 %; Platelet Count 87 X 10*3/uL (140-440); RDW 14.8 % (11.5-14.5); WBC 7.61 X 10*3/uL (4.50-10.00)
--- NOTE | 2022-06-02 13:02 | P.PN ---
Subjective Progress Note Date: 06/02/22 HISTORY OF PRESENT ILLNESS: Patient is pleasant 82-year-old female with history of persistent atrial fibrillation, atrial flutter status post prior atrial flutter ablation, hyperten ronnie, arthritis, aortic stenosis, previous open heart surgery with reported aortic valve replacement, mitral and tricuspid repair. Patient normally follows with Dr. Carlos from [facility]. Unfortunately over the last 3-4 weeks she has been having increased episodes of feeling weak and fatigued. She had initially previously presented to [facility] after what was more of a mechanical fall and tripping. She has however been feeling weak and tired. She also has been having low-grade fevers. Patient was found to have low-grade fever 100.8 and found to have urinary tract infection as well as E. coli bacteremia. She has been placed on antibiotics. She denies any chest pain or pressure. She has chronic dyspnea on exertion. She has chronic lower extremity edema however the edema has been worse over the last few weeks. Previous echocardiogram from 04/13/2022 showed EF 55-60%, severe aortic stenosis with some discrepancy of maximum velocity 4.1 m/s however mean gradient of 31. It appears she has been feeling weak and denies any obvious lightheadedness or dizziness. Most of her falls appear more mechanical in secondary to weakness and likely sepsis. EKG has not been performed however on exam appears to be in A. fib with mild RVR with heart rates in the 100-110 range. Blood pressures have been stable however heart rates in the 101 20 range on vitals. She has not been on telemetry. Blood work shows BUN 26, creatinine 0.9, proBNP 6690 06/02/2022 Patient examined this morning at the bedside. Patient denies chest pain or pressure. She denies SOB. Patient reports some improvement in her lower extremities. She remains on IV lasix. She reports having good urine output. PHYSICAL EXAM: VITAL SIGNS: Reviewed. GENERAL: Well-developed in no acute distress. NECK: Supple. No JVD or thyromegaly LUNGS: Respirations even and unlabored. Lungs essentially clear to auscultation bilaterally. HEART: Regular rate and rhythm. S1 and S2 heard. EXTREMITIES: Normal range of motion. No clubbing or cyanosis. Peripheral pulses intact. 2+ bilateral lower extremity edema ASSESSMENT: 1. Weakness, decreased appetite likely related to sepsis, urinary tract infection 2. Acute on chronic diastolic heart failure 3. Lower extremity edema likely some component of venous insufficiency plus heart failure 4. Severe aortic stenosis. Some discrepancy in measurements however unclear if she is truly symptomatic from the valve 5. Persistent atrial fibrillation 6. Atrial flutter status post prior atrial flutter ablation 7. E. coli bacteremia 8. Falls, mainly mechanical 9. Status post open-heart surgery and aortic valve replacement, mitral and tricuspid repair per patient PLAN: Continue current cardiac medications Continue IV lasix Monitor kidney function Daily weights Accurate I&O Further recommendations pending patient course Nurse practitioner note has been reviewed by physician. Signing provider agrees with the documented findings, assessment, and plan of care. Objective - Vital Signs Vital signs: Vital Signs Temp 98 F 06/02/22 12:52 Pulse 91 06/02/22 12:52 Resp 16 06/02/22 12:52 BP 113/69 06/02/22 12:52 Pulse Ox 95 06/02/22 12:52 FiO2 Intake & Output 06/01/22 06/02/22 06/02/22 18:59 06:59 18:59 Intake Total 290 Output Total 650 1000 Balance -650 -710 Intake: Intake, IV Titration 50 Amount cefTRIAXone 2 gm In 50 Sodium Chloride 0.9% 50 ml @ 100 mls/hr IVPB Q24H [facility] Rx#:[id number] Oral 240 Output: Urine 650 1000 Other: Voiding Method External Catheter External Catheter External Catheter # Voids 3 - Labs CBC & Chem 7: 06/02/22 06:18 06/02/22 06:18 Labs: Abnormal Lab Results - Last 24 Hours (Table) 06/02/22 06/02/22 Range/Units 06:18 06:18 RBC 3.80 L (4.10-5.20) X 10*6/uL Hgb 10.7 L (12.0-15.0) g/dL Hct 34.6 L (37.2-46.3) % MCHC 30.9 L (32.0-37.0) g/dL RDW 14.8 H (11.5-14.5) % Plt Count 87 L (140-440) X 10*3/uL Plt Count Comment DECREASED A MPV 13.6 H (9.5-12.2) fL Immature Gran # 0.07 H (0.00-0.04) X 10*3/uL Potassium 3.2 L (3.5-5.5) mmol/L Carbon Dioxide 28.6 H (20.0-27.5) mmol/L Anion Gap 9.90 L (10.00-18.00) mmol/L BUN/Creatinine Ratio 28.72 H (12.00-20.00) Ratio Total Protein 5.3 L (6.2-8.2) g/dL Albumin 3.1 L (3.8-4.9) g/dL Albumin/Globulin Ratio 1.43 L (1.60-3.17) g/dL Microbiology - Last 24 Hours (Table) 05/31/22 12:49 Urine Culture - Final Urine,Clean Catch 05/31/22 14:52 Blood Culture - Preliminary Blood No Growth after 24 hours 05/31/22 12:49 Urine Culture - Final Urine,Voided 05/30/22 21:14 Blood Culture Gram Stain - Preliminary Blood Blood Culture - Preliminary Escherichia coli Staphylococcus epidermidis
[2022-06-02] MEDS: ACETAMINOPHEN TAB 325 MG TAB PO PRN (15:38)
[2022-06-02] MEDS: FERROUS SULFATE 325 MG TAB PO SCH (15:39)
[2022-06-02] MEDS: AMMONIUM LACTATE 12% CREAM 140 GM TUBE TOPICAL SCH (15:39)
[2022-06-02] MEDS: CHOLECALCIFEROL 25 MCG (1000 IU) TABLET PO SCH (15:39)
[2022-06-02] MEDS: COLLAGENASE 250 UNIT/GM OINTMENT 30 GM TUBE TOPICAL SCH (15:39)
--- NOTE | 2022-06-02 16:05 | P.PN ---
Subjective Progress Note Date: 06/02/22 Principal diagnosis: UTI and bacteremia Patient is a 82-year-old female with multiple comorbidities presenting to the hospital as weakness and fever patient did have evidence of gram-negative bacteremia secondary to urinary source. On today's evaluation that is 06/02/2022, the patient remains to be afebrile, the patient is breathing comfortably on nasal cannula oxygen, the patient denies chest pain shortness of breath or cough no abdominal pain no diarrhea Objective - Vital Signs Vital signs: Vital Signs Temp 98 F 06/02/22 12:52 Pulse 91 06/02/22 12:52 Resp 16 06/02/22 12:52 BP 113/69 06/02/22 12:52 Pulse Ox 95 06/02/22 12:52 FiO2 Intake & Output 06/01/22 06/02/22 06/02/22 18:59 06:59 18:59 Intake Total 290 Output Total 650 1000 800 Balance -650 710 -800 Intake: Intake, IV Titration 50 Amount cefTRIAXone 2 gm In 50 Sodium Chloride 0.9% 50 ml @ 100 mls/hr IVPB Q24H [facility] Rx#:[id number] Oral 240 Output: Urine 650 1000 800 Other: Voiding Method External Catheter External Catheter External Catheter # Voids 3 - Exam GENERAL DESCRIPTION: An elderly female lying in bed in no distress RESPIRATORY SYSTEM: Unlabored breathing , decreased breath sounds at bases HEART: S1 S2 regular rate and rhythm , ABDOMEN: Soft , no tenderness EXTREMITIES: Diffuse swelling bilateral lower extremity no redness - Labs CBC & Chem 7: 06/02/22 06:18 06/02/22 06:18 Labs: Abnormal Lab Results - Last 24 Hours (Table) 06/02/22 06/02/22 Range/Units 06:18 06:18 RBC 3.80 L (4.10-5.20) X 10*6/uL Hgb 10.7 L (12.0-15.0) g/dL Hct 34.6 L (37.2-46.3) % MCHC 30.9 L (32.0-37.0) g/dL RDW 14.8 H (11.5-14.5) % Plt Count 87 L (140-440) X 10*3/uL Plt Count Comment DECREASED A MPV 13.6 H (9.5-12.2) fL Immature Gran # 0.07 H (0.00-0.04) X 10*3/uL Potassium 3.2 L (3.5-5.5) mmol/L Carbon Dioxide 28.6 H (20.0-27.5) mmol/L Anion Gap 9.90 L (10.00-18.00) mmol/L BUN/Creatinine Ratio 28.72 H (12.00-20.00) Ratio Total Protein 5.3 L (6.2-8.2) g/dL Albumin 3.1 L (3.8-4.9) g/dL Albumin/Globulin Ratio 1.43 L (1.60-3.17) g/dL Microbiology - Last 24 Hours (Table) 05/31/22 12:49 Urine Culture - Final Urine,Clean Catch 05/31/22 14:52 Blood Culture - Preliminary Blood No Growth after 24 hours 05/31/22 12:49 Urine Culture - Final Urine,Voided 05/30/22 21:14 Blood Culture Gram Stain - Preliminary Blood Blood Culture - Preliminary Escherichia coli Staphylococcus epidermidis Assessment and Plan (1) UTI (urinary tract infection) Current Visit: Yes Status: Acute Code(s): N39.0 - URINARY TRACT INFECTION, SITE NOT SPECIFIED SNOMED Code(s): 00842578 Plan: 1patient presented to hospital with sepsis in this patient did have a fever tachycardia urinary symptoms positive UA likely urinary source and likely from enteric gram-negative pathogen. 2patient with E. coli bacteremia initial concern for urinary source as the patient did have positive however the culture had been negative patient did have a pelvic mass which is currently being investigated and covered with a likely source we will await for the MRI to be finalize 3patient to continue with Rocephin 2 g daily while waiting for the workup to be completed Time with Patient: Less than 30
--- NOTE | 2022-06-02 17:42 | MR ---
EXAMINATION TYPE: MR abdomen wo/w con DATE OF EXAM: 06/02/2022 COMPARISON: CT scan of the pelvis 04/12/2022 HISTORY: abdominal pelvic mass CONTRAST: Standard multiplanar, multisequence MRI departmental protocol images were obtained without contrast a nd with 7 mL intravenous Gadavist gadolinium contrast. There is very large cystic multiseptated mass involving the entire abdomen extending from the pelvis up to the stomach. The internal septations are relatively thin. The mass measures 33 cm in transverse greatest dimension. The superior inferior dimension is not well evaluated because of the limited fie ld of view. The mass probably measures 30 cm in length from the upper abdomen to the pelvis. There is some mild infiltrate and atelectasis at the lung bases. Liver shows no focal defect. Spleen is intact. Stomach is intact. There is no sign of pancreatic mass. The bile ducts are not dilated. Ga llbladder is dilated and measures 5.6 cm in diameter. There is normal enhancement of the portal venou s system on the contrast images. No retroperitoneal adenopathy. Kidneys have fairly normal size. No h ydronephrosis. No retroperitoneal adenopathy. No sign of ascites. The lower extent of the mass is not evaluated in the pelvis. 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 Mass appea rs increased in size compared to the previous CT scan of 04/12/2022.
[2022-06-03] MEDS: POTASSIUM CHLORIDE ER 20 MEQ TAB.ER PO SCH ×2 (02:52→04:59)
[2022-06-03] MEDS: IPRATROPIUM-ALBUTEROL 3 ML NEB INHALATION SCH ×3 (07:30→19:55)
[2022-06-03] MEDS: FLUTICASONE 110 MCG INHALER INHALATION SCH ×2 (07:30→17:24)
--- NOTE | 2022-06-03 09:07 | P.PN ---
Subjective Progress Note Date: 06/03/22 This is Pankaj Raines NP, I'm dictating on behalf of Dr. Lopez's H&P and A&P. Patient was interviewed and examined. Patient is a pleasant 82-year-old female who presented to the hospital with fever and a UTI, and we were consulted for CHF and A. fib. Patient reports that she's feeling okay today, stating she wants to go back to [facility]. She is denying shortness of breath, and states the edema in her legs is much improved from when she came in. GENERAL: Well-appearing, well-nourished and in no acute distress. NECK: Supple without JVD or thyromegaly. LUNGS: Breath sounds clear to auscultation bilaterally. Respiration equal and unlabored. No wheezes, rales or rhonchi. HEART: Regular rate and rhythm with systolic murmur, no rubs or gallops. S1 and S2 heard. EXTREMITIES: Normal range of motion, 1+ pitting edema in the bilateral lower extremities. No clubbing or cyanosis. Peripheral pulses intact and strong. VITALS: Temp 97.7, pulse 92, respirations 16, blood pressure 114/68, O2 saturation 95% on room air TELEMETRY: A. fib with controlled ventricular response LABS: White count 7.61, hemoglobin 10.7, platelets 87, sodium 137, potassium 3.2, BUN 24, creatinine 0.8, BNP 6690 IMPRESSION: 1. Acute on chronic diastolic heart failure 2. A. fib with RVR 3. Lower extremity edema 4. Severe aortic stenosis PLAN: Continue metoprolol 75 mg 3 times a day. At discharge recommend the patient be sent home on furosemide 40 mg twice a day. From a cardiology standpoint the patient may be discharged. Please do not hesitate to reconsult us if needed. Objective - Vital Signs Vital signs: Vital Signs Temp 97.7 F 06/03/22 05:00 Pulse 92 06/03/22 07:45 Resp 16 06/03/22 05:00 BP 114/68 06/03/22 05:00 Pulse Ox 95 06/03/22 05:00 FiO2 Intake & Output 06/02/22 06/03/22 06/03/22 18:59 06:59 18:59 Output Total 800 1150 Balance -800 -1150 Weight 103.5 kg Output: Urine 800 1150 Other: Voiding Method External Catheter External Catheter - Labs CBC & Chem 7: 06/02/22 06:18 06/02/22 06:18 Labs: Abnormal Lab Results - Last 24 Hours (Table) 06/02/22 06/02/22 Range/Units 06:18 06:18 RBC 3.80 L (4.10-5.20) X 10*6/uL Hgb 10.7 L (12.0-15.0) g/dL Hct 34.6 L (37.2-46.3) % MCHC 30.9 L (32.0-37.0) g/dL RDW 14.8 H (11.5-14.5) % Plt Count 87 L (140-440) X 10*3/uL Plt Count Comment DECREASED A MPV 13.6 H (9.5-12.2) fL Immature Gran # 0.07 H (0.00-0.04) X 10*3/uL Potassium 3.2 L (3.5-5.5) mmol/L Carbon Dioxide 28.6 H (20.0-27.5) mmol/L Anion Gap 9.90 L (10.00-18.00) mmol/L BUN/Creatinine Ratio 28.72 H (12.00-20.00) Ratio Total Protein 5.3 L (6.2-8.2) g/dL Albumin 3.1 L (3.8-4.9) g/dL Albumin/Globulin Ratio 1.43 L (1.60-3.17) g/dL Microbiology - Last 24 Hours (Table) 05/31/22 14:52 Blood Culture - Preliminary Blood No Growth after 48 hours
[2022-06-03] MEDS: SENNOSIDES 8.6 MG TAB PO SCH (09:09)
[2022-06-03] MEDS: FUROSEMIDE 10 MG/ML 4 ML VIAL IV SCH ×2 (09:09→22:50)
[2022-06-03] MEDS: AMMONIUM LACTATE 12% CREAM 140 GM TUBE TOPICAL SCH (09:09)
[2022-06-03] MEDS: METOPROLOL TARTRATE 25 MG TAB PO SCH ×3 (09:09→20:22)
[2022-06-03] MEDS: COLLAGENASE 250 UNIT/GM OINTMENT 30 GM TUBE TOPICAL SCH (09:10)
--- NOTE | 2022-06-03 11:06 | P.GSCN ---
History of Present Illness Consult date: 06/03/22 Reason for Consult: Severe aortic valve stenosis Requesting physician: Vickey Uribe History of present illness: This is an 82-year-old female patient who follows on an outpatient basis with Dr. Vickey Uribe for her primary care service and Dr. Bryce Carlos for her cardiology care. She has a past medical history significant for hypertension, chronic persistent atrial fibrillation/atrial flutter status post ablation in 2011 for her atrial flutter, acute on chronic diastolic congestive heart failure, bilateral lower extremity edema, status post fall from standing in March 2022, osteoarthritis, history of aortic valve replacement, tricuspid valve repair and mitral valve repair in 2007 completed at [facility] by Dr. Mukund Melton, occasional EtOH use with drinking 2-3 alcoholic drinks per week and a remote history of nicotine dependence in which she quit smoking in 1977. The patient reports in March 2022 she had a fall from standing at home, slipped on some water while working in the kitchen and since her fall she has not been able to weight-bear on her bilateral lower extremities. She is essentially been bedridden since March 2022. She denies any recent headaches, shortness of breath, chest pain, hemoptysis, hematemesis, dizziness, lightheadedness, presyncope or syncope. During her fall in March 2022 the patient states she had a small laceration to her right lower extremity, requiring suturing and is receiving localized wound care at present. The patient reports she has been living at [facility] since the middle of March 2022. Prior to her fall she reports she has been living independently, doing her own groceries and driving. She also reports that she was using a cane and on occasion a walker to stabilize herself at home. She presented to the emergency department here at [facility] on 05/30/2022 via EMS due to some complaints of fever of 102F, generalized weakness which has been present for over a month, a mild cough and increased swelling to her bilateral lower extremities. Lab results on admission showed a WBC count of 10.1, hemoglobin 12.2, hematocrit 40.1, platelets 95, PT 13.1, INR 1.3, PTT 26.7, sodium 136, potassium 3.8, chloride 95, CO2 31, BUN 26, creatinine 0.95, glucose 101, plastic lactic acid 1.6, and a urinalysis showed large leukocyte esterase and greater than 182 WBCs with few bacteria. A COVID- 19 test was completed which showed not detected. Due to her fever of 102 blood cultures were sent which showed positive for Escherichia Staphylococcus epidermidis, which was felt to be secondary to a urinary source. Infectious tor reyes was consulted and she is currently receiving Rocephin 2 g IV piggyback every 24 hours for antibiotic coverage. A chest x-ray was completed on 05/30/2022 which showed increased interstitial markings compared to last exam. For further evaluation and a computed tomography scan of her chest was completed without contrast which showed mild fibrotic changes and subsegmental atelectasis at the lung bases, cardiomegaly, atherosclerotic vascular disease, no suspicious pulmonary mass. On her previous admission a transthoracic 2-D echocardiogram was completed which demonstrated moderately increased left ventricular wall thickness, left ventricular ejection fraction estimated at 55-60%, mild mitral valve regurgitation, severe aortic stenosis with a peak gradient of 51 mmHg, mean gradient 31 mmHg, max velocity 4.1 m/s with no aortic valve regurgitation, mild tricuspid valve regurgitation and a normal pericardium without effusion. Subsequently, due to the findings of severe aortic valve stenosis on the transthoracic 2-D echocardiogram from March 2022 a consult was placed to Dr. John Figueroa from cardiothoracic surgery for further evaluation and treatment recommendations for consideration of TAVR in the future. Review of Systems A 14 point review of systems was completed and was negative except as mentioned in HPI. Past Medical History Past Medical History: Atrial Fibrillation, Atrial Flutter, Hypertension, Musculoskeletal Disorder, Osteoarthritis (OA) Additional Past Medical History / Comment(s): History of severe arthritis at the right knee History of Any Multi-Drug Resistant Organisms: None Reported Past Surgical History: Ablation (History of cardiac ablation in 2011 for atrial flutter), Cardiac Valve Replacement, Orthopedic Surgery (Right shoulder surgery) Additional Past Surgical History / Comment(s): open heart, valve replacement, history of aortic valve replacement, tricuspid valve repair and mitral valve repair in 2007 completed at [facility] by Dr. Mukund Melton Past Anesthesia/Blood Transfusion Reactions: No Reported Reaction Past Psychological History: No Psychological Hx Reported Smoking Status: Former smoker (Quit smoking in 1977) Past Alcohol Use History: Occasional Past Drug Use History: None Reported - Past Family History Mother Family Medical History: Congestive Heart Failure (CHF) Additional Family Medical History / Comment(s): from congestive heart failure at age 83 Father Additional Family Medical History / Comment(s): from septic shock at age 85 Sister(s) Additional Family Medical History / Comment(s): She had 2 sisters one at age 20 from a blood clot and the other at age 42 in a motor vehicle accident. Medications and Allergies Home Medications Medication Instructions Recorded Confirmed Type Ipratropium [place] 0.06%Nasal 2 spr EA NOSTRIL BID PRN 04/12/22 05/30/22 History [Atrovent Nasal 0.06%] Albuterol Nebulized [Ventolin 2.5 mg INHALATION RT-QID PRN ml 04/17/22 05/30/22 Rx Nebulized] Acetaminophen Tab [Tylenol] 650 mg PO Q4H PRN 05/30/22 05/30/22 History Ammonium Lactate Cream [Lac-Hydrin 1 applic TOPICAL DAILY 05/30/22 05/30/22 History 12% Cream] Beclomethasone Dipropionate [Qvar 1 puff INHALATION RT-BID@0800,1700 05/30/22 05/30/22 History 80mcg Redihaler] Cholecalciferol [Vitamin D3 (25 100 mcg PO DAILY@0 05/30/22 05/30/22 History Mcg = 1000 Iu)] Collagenase [Santyl Ointment] 1 applic TOPICAL DAILY 05/30/22 05/30/22 History Ferrous Sulfate [Feosol] 325 mg PO DAILY@1700 05/30/22 05/30/22 History Furosemide [Lasix] 40 mg PO DAILY@0800 05/30/22 05/30/22 History Ipratropium-Albuterol Nebulize 3 ml INHALATION RT-TID@08,14,21 05/30/22 05/30/22 History [Duoneb 0.5 mg-3 mg/3 ml Soln] Magnesium Hydroxide [Milk of 7,200 mg PO DAILY PRN 05/30/22 05/30/22 History Magnesia Concentrate] Menthol [Biofreeze] 1 applic TOPICAL TID PRN 05/30/22 05/30/22 History Metoprolol Tartrate [Lopressor] 50 mg PO TID@0800,1400,2100 05/30/22 05/30/22 History Na Phos,M-B/Na Phos,Di-Ba [Fleet 133 ml RECTAL DAILY PRN 05/30/22 05/30/22 History Adult] Sennosides [Senokot] 17.2 mg PO DAILY@0800 05/30/22 05/30/22 History bisacodyL [Dulcolax] 10 mg RECTAL DAILY PRN 05/30/22 05/30/22 History Allergies Allergy/AdvReac Type Severity Reaction Status Date / Time Sulfa (Sulfonamide AdvReac Agitation Verified 05/30/22 23:16 Antibiotics) Surgical - Exam Vital Signs Temp Pulse Resp BP Pulse Ox 99.9 F H 105 H 16 121/62 94 L 05/30/22 19:19 05/30/22 19:19 05/30/22 19:19 05/30/22 19:19 05/30/22 19:19 - General well developed, well nourished, no distress, no pain, chronically ill, obese - Eyes PERRL, normal ocular movement, no pale, no icteric - ENT Upper teeth implants. normal pinna, normal nares, normal mucosa, no hearing loss, no congestion, decreased hearing (To her bilateral ears.) - Neck Neck is supple, no lymphadenopathy. no masses, no bruits, trachea midline, no venous distension - Respiratory Lungs essentially clear throughout, diminished bilateral bases. Respirations are symmetrical and nonlabored. No wheezes, rhonchi or crackles. - Cardiovascular Regular rhythm and rate. S1 and S2 present, negative for S3, or gallop. Systolic murmur 2/6 murmur best heard right sternal border. +1 to +2 edema to her bilateral lower extremities and ankles. - Abdomen Abdomen is soft, nontender and nondistended. Active bowel sounds present in all 4 bowel quadrants. No guarding or rigidity. No organomegaly appreciated. - Genitourinary Deferred - Rectum Deferred - Integumentary Skin is warm and dry. No clubbing or cyanosis is present. Small quarter size wound to her right lower extremity. no rash, no growths - Neurologic Numbness to her bilateral bilateral thighs. - Musculoskeletal Able to wiggle toes and bend her knees. Strength equal to her bilateral upper extremities. Unable to weight-bear. - Psychiatric oriented to time, oriented to person, oriented to place, speech is normal, m andrzej intact Results - Labs 06/02/22 06:18 06/02/22 06:18 Abnormal Lab Results - Last 24 Hours (Table) 06/02/22 06/02/22 Range/Units 06:18 06:18 RBC 3.80 L (4.10-5.20) X 10*6/uL Hgb 10.7 L (12.0-15.0) g/dL Hct 34.6 L (37.2-46.3) % MCHC 30.9 L (32.0-37.0) g/dL RDW 14.8 H (11.5-14.5) % Plt Count 87 L (140-440) X 10*3/uL Plt Count Comment DECREASED A MPV 13.6 H (9.5-12.2) fL Immature Gran # 0.07 H (0.00-0.04) X 10*3/uL Potassium 3.2 L (3.5-5.5) mmol/L Carbon Dioxide 28.6 H (20.0-27.5) mmol/L Anion Gap 9.90 L (10.00-18.00) mmol/L BUN/Creatinine Ratio 28.72 H (12.00-20.00) Ratio Total Protein 5.3 L (6.2-8.2) g/dL Albumin 3.1 L (3.8-4.9) g/dL Albumin/Globulin Ratio 1.43 L (1.60-3.17) g/dL Microbiology - Last 24 Hours (Table) 05/31/22 14:52 Blood Culture - Preliminary Blood No Growth after 48 hours Diabetes panel 06/02/22 Range/Units 06:18 Sodium 137 (135-145) mmol/L Potassium 3.2 L (3.5-5.5) mmol/L Chloride 99 (96-109) mmol/L Carbon Dioxide 28.6 H (20.0-27.5) mmol/L BUN 24.1 (9.0-27.0) mg/dL Creatinine 0.8 (0.6-1.5) mg/dL Glucose 105 (70-110) mg/dL Calcium 8.9 (8.7-10.3) mg/dL AST 19 (13-35) U/L ALT 12 (8-44) U/L Alkaline Phosphatase 68 (41-126) U/L Total Protein 5.3 L (6.2-8.2) g/dL Albumin 3.1 L (3.8-4.9) g/dL Calcium panel 06/02/22 Range/Units 06:18 Calcium 8.9 (8.7-10.3) mg/dL Albumin 3.1 L (3.8-4.9) g/dL Pituitary panel 06/02/22 Range/Units 06:18 Sodium 137 (135-145) mmol/L Potassium 3.2 L (3.5-5.5) mmol/L Chloride 99 (96-109) mmol/L Carbon Dioxide 28.6 H (20.0-27.5) mmol/L BUN 24.1 (9.0-27.0) mg/dL Creatinine 0.8 (0.6-1.5) mg/dL Glucose 105 (70-110) mg/dL Calcium 8.9 (8.7-10.3) mg/dL Adrenal panel 06/02/22 Range/Units 06:18 Sodium 137 (135-145) mmol/L Potassium 3.2 L (3.5-5.5) mmol/L Chloride 99 (96-109) mmol/L Carbon Dioxide 28.6 H (20.0-27.5) mmol/L BUN 24.1 (9.0-27.0) mg/dL Creatinine 0.8 (0.6-1.5) mg/dL Glucose 105 (70-110) mg/dL Calcium 8.9 (8.7-10.3) mg/dL Total Bilirubin 0.30 (0.30-1.20) mg/dL AST 19 (13-35) U/L ALT 12 (8-44) U/L Alkaline Phosphatase 68 (41-126) U/L Total Protein 5.3 L (6.2-8.2) g/dL Albumin 3.1 L (3.8-4.9) g/dL - Imaging Chest x-ray: report reviewed, image reviewed CT scan - chest: report reviewed Additional studies: Report from the transthoracic 2-D echocardiogram completed in March 2022 reviewed. Assessment and Plan Assessment: 1. Severe aortic valve stenosis per 2-D echocardiogram completed in March 2022 2. E. coli bacteremia, possibly secondary to urinary source 3. Acute on chronic diastolic ingestion of heart failure, with lower extremity edema 4. Urinary tract infection 5. Chronic persistent atrial fibrillation 6. History of hypertension 7. Remote history of nicotine dependence quit smoking in 1977 8. Occasional EtOH use with drinking 2-3 glasses of wine or gin per week 9. History of aortic valve, tricuspid valve and mitral valve disease, status post aortic valve replacement, tricuspid valve repair and mitral valve repair in 2007 completed at [facility] 10. Status post fall from standing in March 2022, continued weakness and debility since her fall 11. History of atrial flutter, status post atrial flutter ablation in 2011 Plan: The patient was seen and examined today 06/03/2022 at her bedside on the fifth floor medical surgical unit. Her chart and diagnostics were reviewed. Her case was discussed in detail with Dr. John Figueroa from cardiothoracic surgery. At this time the patient would be considered an extremely high risk for any cardiac surgery procedure due to her debilitated state. Once the patient is medically optimized, she may be considered for candidacy for TAVR, and could be evaluated in the TAVR clinic on an outpatient basis. Due to her positive blood cultures cultures, may consider a repeat transthoracic 2-D echocardiogram to rule out vegetation. Continue antibiotic management per infectious disease recommendations. Medical management and other comorbidities her primary care service and cardiology. We will continue to follow the patient on an as-needed basis. Please call for any further questions regarding TAVR once medically optimized. Thank you Dr. Uribe for this consult, please do not hesitate to reconsult if any further questions. I have personally seen and examined the patient, performed the documentation and the assessment and plan as written. 30 minutes spent on the visit . Da WILLETT
[2022-06-03 11:52] LABS: African American GFR (CKD) 78.2 (60.0-200.0); Anion Gap 10.6 mmol/L (10.00-18.00); BUN/Creat Ratio 31.55 Ratio (12.00-20.00); Blood Urea Nitrogen 25.3 mg/dL (9.0-27.0); Calcium 9.1 mg/dL (8.7-10.3); Carbon Dioxide 30.3 mmol/L (20.0-27.5); Non-African American GFR(CKD) 67.5 (60.0-200.0); Potassium 3.6 mmol/L (3.5-5.5)
[2022-06-03] MEDS: CHOLECALCIFEROL 25 MCG (1000 IU) TABLET PO SCH (17:22)
[2022-06-03] MEDS: FERROUS SULFATE 325 MG TAB PO SCH (17:22)
--- NOTE | 2022-06-03 23:03 | PN ---
PROGRESS NOTE SUBJECTIVE: She was seen by Infectious Disease doctor today, Dr. Muñoz. MRI of the abdomen has been ordered, it is going to be done today. She remains afebrile, breathing is improving. No cough or congestion. OBJECTIVE: VITAL SIGNS: Temperature 98, pulse 90 to 91, respiratory rate 16 to 18, blood pressure 113/69, and O2 95. CARDIOVASCULAR: S1, S2. LUNGS: Scattered rhonchi and wheeze. HEMATOLOGY: Negative Homans. PSYCH: Fair mood and affect. Blood cultures are negative. Platelets 87. Sepsis because she had fever, tachycardia, and urinary symptoms, positive UA with gram-negative enteric pathogen, E. coli bacteremia. She did have a pelvic mass which is currently being investigated source as we await MRI to be finalized. Continue with Rocephin, we are awaiting further workup to be completed. 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 Severe aortic stenosis, Dr. Stephens will be consulted to see her for a possible valve surgery. PROGNOSIS: Guarded. MMODL / IJN: [id number] /
--- NOTE | 2022-06-04 06:50 | PN ---
PROGRESS NOTE SUBJECTIVE: 82-year-old showed increased interstitial markings compared to last exam. CAT scan of the chest shows mild fibrotic changes, cardiomegaly, atherosclerotic heart disease, no suspicious pulmonary mass. She had a 2D echo, which showed severe aortic stenosis a few months ago. Cardiology, chest surgeon, nurse practitioner or PA saw the patient today and wants another one repeated due to possible mitral valve endocarditis as she has positive blood cultures, possibly do a TAVR down the road once she is medically stable. OBJECTIVE: VITAL SIGNS: Temperature 99.5, pulse 105, respiratory rate 16 to 18, blood pressure 121/62, O2 of 94%. NECK: Supple. RESPIRATORY: Clear. CARDIOVASCULAR: Regular rate and rhythm. ABDOMEN: Soft. INTEGUMENT: Skin warm and dry. NEUROLOGIC: Alert and oriented. She can move her legs. EXTREMITIES: Leg swelling is improved with IV Lasix for diastolic heart failure. LABORATORY DATA: Her potassium is being replaced. Her last potassium was 3.2 yesterday. Hemoglobin is 10.7. ASSESSMENT: 1. Severe aortic stenosis. 2. Escherichia coli bacteremia, possibly secondary to urinary source. 3. Chronic diastolic heart failure. 4. Persistent atrial fibrillation. 5. Hypertension. 6. Nicotine addiction. 7. Occasional alcohol drinker. 8. History of aortic valve, tricuspid valve, and mitral valve disease, status post aortic valve replacement, tricuspid valve repair, and mitral valve repair, all at [place]. 9. History of atrial flutter. 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 Further MRI was done yesterday of her abdomen. Once optimized, she may be able to have a TAVR. We will make sure she has no endocarditis. Dr. Bland is on consult for Infectious Disease. Prognosis is guarded. Treat UTI with sepsis. MMODL / IJN: [id number] /
[2022-06-04] MEDS: IPRATROPIUM-ALBUTEROL 3 ML NEB INHALATION SCH ×3 (07:36→19:21)
[2022-06-04] MEDS: FLUTICASONE 110 MCG INHALER INHALATION SCH ×2 (07:36→19:22)
[2022-06-04] MEDS: METOPROLOL TARTRATE 25 MG TAB PO SCH ×3 (09:10→20:59)
[2022-06-04] MEDS: SENNOSIDES 8.6 MG TAB PO SCH (09:11)
[2022-06-04] MEDS: FUROSEMIDE 10 MG/ML 4 ML VIAL IV SCH ×2 (09:11→20:59)
[2022-06-04 11:11] LABS: Basophils # (A) 0.13 X 10*3/uL (0.00-0.10); Basophils % (A) 1.3 %; Eosinophils % (A) 3.1 %; HCT 35.9 % (37.2-46.3); HGB 10.9 g/dL (12.0-15.0); Lymphocytes % (A) 17.3 %; MCH 28.5 pg (27.0-32.0); MCHC 30.4 g/dL (32.0-37.0); Mean Platelet Volume 13.7 fL (9.5-12.2); Monocytes # (A) 0.79 X 10*3/uL (0.20-1.00); NRBC Per 100 WBC 0 /100 WBCS (0.0-0.0); Neutrophils # (A) 6.71 X 10*3/uL (1.80-7.70); Neutrophils % (A) 68.3 %; Platelet Count 109 X 10*3/uL (140-440); RBC 3.82 X 10*6/uL (4.10-5.20); RBC Morphology NORMAL; WBC 9.83 X 10*3/uL (4.50-10.00)
[2022-06-04 11:32] LABS: African American GFR (CKD) 78.5 (60.0-200.0); Albumin 3.2 g/dL (3.8-4.9); Albumin/Globulin Ratio 1.6 (1.60-3.17); Anion Gap 5.9 mmol/L (10.00-18.00); BUN/Creat Ratio 25.13 Ratio (12.00-20.00); Blood Urea Nitrogen 20.1 mg/dL (9.0-27.0); Calcium 9.3 mg/dL (8.7-10.3); Carbon Dioxide 35.1 mmol/L (20.0-27.5); Non-African American GFR(CKD) 67.7 (60.0-200.0); Total Bilirubin 0.3 mg/dL (0.30-1.20); Total Protein 5.2 g/dL (6.2-8.2)
[2022-06-04] MEDS: COLLAGENASE 250 UNIT/GM OINTMENT 30 GM TUBE TOPICAL SCH (14:21)
[2022-06-04] MEDS: AMMONIUM LACTATE 12% CREAM 140 GM TUBE TOPICAL SCH (14:22)
[2022-06-04 15:34] VITALS: BMI 36.6
[2022-06-04] MEDS: FERROUS SULFATE 325 MG TAB PO SCH (17:59)
[2022-06-04] MEDS: CHOLECALCIFEROL 25 MCG (1000 IU) TABLET PO SCH (17:59)
--- NOTE | 2022-06-04 21:14 | P.PN ---
Subjective Progress Note Date: 06/03/22 Principal diagnosis: UTI and bacteremia Patient is a 82-year-old female with multiple comorbidities presenting to the hospital as weakness and fever patient did have evidence of gram-negative bacteremia secondary to urinary source. On today's evaluation that is 06/03/2022, the patient continues to be afebrile, the patient is breathing comfortably on nasal cannula oxygen, the patient denies chest pain shortness of breath or cough, the patient denies abdominal pain no diarrhea Objective - Vital Signs Vital signs: Vital Signs Temp 98.0 F 06/03/22 11:37 Pulse 88 06/03/22 12:07 Resp 18 06/03/22 11:37 BP 124/69 06/03/22 11:37 Pulse Ox 95 06/03/22 11:37 FiO2 Intake & Output 06/02/22 06/03/22 06/03/22 18:59 06:59 18:59 Output Total 800 1150 Balance -800 -1150 Weight 103.5 kg Output: Urine 800 1150 Other: Voiding Method External Catheter External Catheter Diaper Incontinent External Catheter - Exam GENERAL DESCRIPTION: An elderly female lying in bed in no distress RESPIRATORY SYSTEM: Unlabored breathing , decreased breath sounds at bases HEART: S1 S2 regular rate and rhythm , ABDOMEN: Soft , no tenderness EXTREMITIES: Diffuse swelling bilateral lower extremity no redness - Labs CBC & Chem 7: 06/04/22 05:38 06/04/22 05:38 Labs: Abnormal Lab Results - Last 24 Hours (Table) 06/03/22 Range/Units 07:09 Carbon Dioxide 30.3 H (20.0-27.5) mmol/L BUN/Creatinine Ratio 31.55 H (12.00-20.00) Ratio Microbiology - Last 24 Hours (Table) 05/31/22 14:52 Blood Culture - Preliminary Blood No Growth after 48 hours Assessment and Plan (1) UTI (urinary tract infection) Current Visit: Yes Status: Acute Code(s): N39.0 - URINARY TRACT INFECTION, SITE NOT SPECIFIED SNOMED Code(s): 37754939 Plan: 1patient presented to hospital with sepsis in this patient did have a fever tachycardia urinary symptoms positive UA likely urinary source and likely from enteric gram-negative pathogen. 2patient with E. coli bacteremia initial concern for urinary source as the patient did have positive however the culture had been negative patient did have a pelvic mass which is currently being investigated and could be the a likely source of this bacteremia 3patient seemed diagnosis of clinical improvement and the patient is cleared her bacteremia, patient to continue with Rocephin 2 g daily Time with Patient: Less than 30
--- NOTE | 2022-06-04 21:15 | P.PN ---
Subjective Progress Note Date: 06/04/22 Principal diagnosis: UTI and bacteremia Patient is a 82-year-old female with multiple comorbidities presenting to the hospital as weakness and fever patient did have evidence of gram-negative bacteremia secondary to urinary source. On today's evaluation that is 06/04/2022, the patient remains to be afebrile, the patient is breathing comfortably on nasal cannula oxygen, the patient denies chest pain shortness of breath or cough, the patient denies abdominal pain no d iarrhea, the patient is feeling better Objective - Vital Signs Vital signs: Vital Signs Temp 98.0 F 06/04/22 11:26 Pulse 80 06/04/22 12:13 Resp 18 06/04/22 11:26 BP 109/63 06/04/22 11:26 Pulse Ox 99 06/04/22 11:26 FiO2 Intake & Output 06/03/22 06/04/22 06/04/22 18:59 06:59 18:59 Intake Total 500 Output Total 1200 1800 1000 Balance -1200 -1300 -1000 Weight 100 kg 100 kg Intake: Oral 500 Output: Urine 1200 1800 1000 Other: Voiding Method Diaper Diaper Diaper Incontinent Incontinent Incontinent External Catheter External Catheter External Catheter # Voids 0 # Bowel Movements 0 1 - Exam GENERAL DESCRIPTION: An elderly female lying in bed in no distress RESPIRATORY SYSTEM: Unlabored breathing , decreased breath sounds at bases HEART: S1 S2 regular rate and rhythm , ABDOMEN: Soft , no tenderness EXTREMITIES: Diffuse swelling bilateral lower extremity no redness - Labs CBC & Chem 7: 06/04/22 05:38 06/04/22 05:38 Labs: Abnormal Lab Results - Last 24 Hours (Table) 06/04/22 06/04/22 Range/Units 05:38 05:38 RBC 3.82 L (4.10-5.20) X 10*6/uL Hgb 10.9 L (12.0-15.0) g/dL Hct 35.9 L (37.2-46.3) % MCHC 30.4 L (32.0-37.0) g/dL RDW 15.0 H (11.5-14.5) % Plt Count 109 L (140-440) X 10*3/uL Plt Count Comment DECREASED A MPV 13.7 H (9.5-12.2) fL Immature Gran # 0.20 H (0.00-0.04) X 10*3/uL Basophils # 0.13 H (0.00-0.10) X 10*3/uL Carbon Dioxide 35.1 H (20.0-27.5) mmol/L Anion Gap 5.90 L (10.00-18.00) mmol/L BUN/Creatinine Ratio 25.13 H (12.00-20.00) Ratio Total Protein 5.2 L (6.2-8.2) g/dL Albumin 3.2 L (3.8-4.9) g/dL Microbiology - Last 24 Hours (Table) 05/31/22 14:52 Blood Culture - Preliminary Blood No Growth after 96 hours 05/30/22 21:14 Blood Culture Gram Stain - Final Blood Blood Culture - Final Escherichia coli Staphylococcus epidermidis Assessment and Plan (1) UTI (urinary tract infection) Current Visit: Yes Status: Acute Code(s): N39.0 - URINARY TRACT INFECTION, SITE NOT SPECIFIED SNOMED Code(s): 43641889 Plan: 1patient presented to hospital with sepsis in this patient did have a fever t achycardia urinary symptoms positive UA likely urinary source and likely from enteric gram-negative pathogen. 2patient with E. coli bacteremia initial concern for urinary source as the patient did have positive however the culture had been negative patient did have a pelvic mass which is currently being investigated and could be the a likely source of this bacteremia, apparently patient is aware of this abdominal mass and was supposed to be biopsied however that has not been completed we will get oncology evaluation at this hospital and need for a CT-guided biopsy 3patient has shown clinical improvement and the patient has cleared her bacteremia, patient to continue with Rocephin 2 g daily Time with Patient: Less than 30
--- NOTE | 2022-06-04 23:17 | PN ---
PROGRESS NOTE SUBJECTIVE: The patient is definitely losing weight on the Lasix. She lost like 6 pounds over the last couple of days. She remains on Rocephin for E coli bacteremia. I ordered a HIDA scan after discussed with Dr. Bland for possible cholecystitis as a cause of E coli bacteremia as urine culture did not show the E coli. She has a distended gallbladder on MRI of the abdomen. 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 OBJECTIVE: CARDIOVASCULAR: S1 and S2. LUNGS: Clear. GI: Soft. PSYCHIATRIC: She is happy. PLAN: Continue with metoprolol for hypertension. COPD; continue with DuoNeb updrafts. Rocephin 2 g daily for E coli bacteremia. Repeat cultures are negative x72 hours. HIDA scan and possible discharge. Continue with diuresis back at the rehab center. I will do HIDA scan prior to being discharged to make sure there is no infection in her gallbladder triggering the bacteremia. Dr. Bland does not think it is endocarditis. MMODL / IJN: [id number] /
[2022-06-05] MEDS: IPRATROPIUM-ALBUTEROL 3 ML NEB INHALATION SCH ×3 (07:37→19:18)
[2022-06-05] MEDS: FLUTICASONE 110 MCG INHALER INHALATION SCH ×2 (07:37→15:29)
[2022-06-05] MEDS: FUROSEMIDE 10 MG/ML 4 ML VIAL IV SCH (08:19)
[2022-06-05] MEDS: SENNOSIDES 8.6 MG TAB PO SCH (08:19)
[2022-06-05] MEDS: METOPROLOL TARTRATE 25 MG TAB PO SCH ×3 (08:19→21:01)
[2022-06-05 09:58] LABS: African American GFR (CKD) 78.5 (60.0-200.0); Albumin/Globulin Ratio 1.3 (1.60-3.17); Anion Gap 7.8 mmol/L (10.00-18.00); BUN/Creat Ratio 22.38 Ratio (12.00-20.00); Blood Urea Nitrogen 17.9 mg/dL (9.0-27.0); Calcium 9.3 mg/dL (8.7-10.3); Carbon Dioxide 34.2 mmol/L (20.0-27.5); Globulin 2.3 g/dL (1.6-3.3); Non-African American GFR(CKD) 67.7 (60.0-200.0); Potassium 3.8 mmol/L (3.5-5.5); Total Bilirubin 0.3 mg/dL (0.30-1.20); Total Protein 5.3 g/dL (6.2-8.2)
[2022-06-05 10:39] LABS: Basophils # (A) 0.11 X 10*3/uL (0.00-0.10); Basophils % (A) 1.1 %; HCT 36.3 % (37.2-46.3); Immature Grans, Automated 3.2 %; Lymphocytes # (A) 1.62 X 10*3/uL (0.90-5.00); Lymphocytes % (A) 16.4 %; MCH 28.3 pg (27.0-32.0); MCHC 30.3 g/dL (32.0-37.0); MCV 93.3 fL (80.0-97.0); Mean Platelet Volume 14.3 fL (9.5-12.2); Monocytes % (A) 7.1 %; NRBC Per 100 WBC 0 /100 WBCS (0.0-0.0); Neutrophils # (A) 6.82 X 10*3/uL (1.80-7.70); Neutrophils % (A) 69.2 %; Platelet Count 116 X 10*3/uL (140-440); RBC 3.89 X 10*6/uL (4.10-5.20); RBC Morphology NORMAL; RDW 15.2 % (11.5-14.5); WBC 9.87 X 10*3/uL (4.50-10.00)
--- NOTE | 2022-06-05 12:05 | P.CONS ---
History of Present Illness - Reason for Consult Consult date: 06/05/22 Pelvic Mass - History of Present Illness The patient is an 82-year-old white female with multiple medical problems. The patient was admitted this admission because of fever, up to 103, as well as progressive weakness and loss of appetite. Her blood cultures were positive for E. coli, and it was felt that the infection is likely from a urinary source. The patient was seen by ID, and is on IV antibiotics. She had ultrasound of the KUB done which showed a large pelvic mass. Consult was therefore placed a further evaluation. Patient's visits and multiple lymph nodes were reviewed and EMR. It appears that she was diagnosed with a large pelvic mass on ultrasound initially in 04/21 by gynecology, Dr. Howard. Her CA-125 was elevated at 173. She had a OVA 1 test, which give her a 35-36% risk of having malignancy. It appears that the patient has been referred to [facility] oncology, Dr. Palmer, and has had a te lemetry with consultation with him. She was supposed to have an MRI done later this month. MRI abdomen and pelvis was performed this admission and confirmed the presence of a large septated cystic mass arising from the pelvis, measuring about 20 cm in the craniocaudal dimension. This appeared to be larger compared to the prior studies. The patient also has 2 cardiogram showing severe aortic stenosis, for which CT surgery has been consulted. CT chest showed some mild bilateral nonspecific fibrotic changes. The patient was also noted to have anemia, that appears to have been marked with hemoglobin in the 7-8 range during her admission in 04/21. During that time platelets were initially normal and were showing a downward trend and discharge. Outpatient labs and mentation 22 for platelets as low as 49 following which the platelets improved. During this admission platelets were in the 80,000 range and have subsequently shown improvement. hemoglobin was normal at 12.4 on 05/31/22 and a shown a mild drop into the 10-11 range. She denied any prior history of malignancy. Review of Systems Constitutional: Reports weakness Eyes: denies blurred vision, denies pain Ears: bilateral: decreased hearing, deny: ear discharge, earache, tinnitus Ears, nose, mouth and throat: Denies headache, Denies sore throat Breasts: left: masses (Left upper chest wall mass. She states she was told it certainly hematoma) Cardiovascular: Reports as per HPI, Reports decreased exercise tolerance Respiratory: Reports dyspnea Gastrointestinal: Reports bloating Genitourinary: Denies dysuria, Denies hematuria Menstruation: Reports postmenopausal Musculoskeletal: Reports as per HPI (Lower extremity lymphedema bilaterally, chronic. Significant worsening over the past few months) Integumentary: Reports color changes, Reports darkening of skin (Bilateral lower extremities due to congestion) Neurological: Reports weakness Psychiatric: Denies anxiety, Denies depression Endocrine: Reports fatigue Hematologic/Lymphatic: Reports as per HPI, Reports lymphedema Past Medical History Past Medical History: Atrial Fibrillation, Atrial Flutter, Hypertension, Musculoskeletal Disorder, Osteoarthritis (OA) Additional Past Medical History / Comment(s): History of severe arthritis at the right knee History of Any Multi-Drug Resistant Organisms: None Reported Past Surgical History: Ablation (History of cardiac ablation in 2011 for atrial flutter), Cardiac Valve Replacement, Orthopedic Surgery (Right shoulder surgery) Additional Past Surgical History / Comment(s): open heart, valve replacement, history of aortic valve replacement, tricuspid valve repair and mitral valve repair in 2007 completed at [facility] by Dr. Mukund Melton Past Anesthesia/Blood Transfusion Reactions: No Reported Reaction Past Psychological History: No Psychological Hx Reported Smoking Status: Former smoker (Quit smoking in 1977) Past Alcohol Use History: Occasional Past Drug Use History: None Reported - Past Family History Mother Family Medical History: Congestive Heart Failure (CHF) Additional Family Medical History / Comment(s): from congestive heart failure at age 83 Father Additional Family Medical History / Comment(s): from septic shock at age 85 Sister(s) Additional Family Medical History / Comment(s): She had 2 sisters one at age 20 from a blood clot and the other at age 42 in a motor vehicle accident. Medications and Allergies Home Medications Medication Instructions Recorded Confirmed Type Ipratropium [place] 0.06%Nasal 2 spr EA NOSTRIL BID PRN 04/12/22 05/30/22 History [Atrovent Nasal 0.06%] Albuterol Nebulized [Ventolin 2.5 mg INHALATION RT-QID PRN ml 04/17/22 05/30/22 Rx Nebulized] Acetaminophen Tab [Tylenol] 650 mg PO Q4H PRN 05/30/22 05/30/22 History Ammonium Lactate Cream [Lac-Hydrin 1 applic TOPICAL DAILY 05/30/22 05/30/22 History 12% Cream] Beclomethasone Dipropionate [Qvar 1 puff INHALATION RT-BID@0800,1700 05/30/22 05/30/22 History 80mcg Redihaler] Cholecalciferol [Vitamin D3 (25 100 mcg PO DAILY@169905/30/22 05/30/22 History Mcg = 1000 Iu)] Collagenase [Santyl Ointment] 1 applic TOPICAL DAILY 05/30/22 05/30/22 History Ferrous Sulfate [Feosol] 325 mg PO DAILY@169905/30/22 05/30/22 History Furosemide [Lasix] 40 mg PO DAILY@79905/30/22 05/30/22 History Ipratropium-Albuterol Nebulize 3 ml INHALATION RT-TID@08,,05/30/22 05/30/22 History [Duoneb 0.5 mg-3 mg/3 ml Soln] Magnesium Hydroxide [Milk of 7,200 mg PO DAILY PRN 05/30/22 05/30/22 History Magnesia Concentrate] Menthol [Biofreeze] 1 applic TOPICAL TID PRN 05/30/22 05/30/22 History Metoprolol Tartrate [Lopressor] 50 mg PO TID@0800,1400,2100 05/30/22 05/30/22 History Na Phos,M-B/Na Phos,Di-Ba [Fleet 133 ml RECTAL DAILY PRN 05/30/22 05/30/22 History Adult] Sennosides [Senokot] 17.2 mg PO DAILY@79905/30/22 05/30/22 History bisacodyL [Dulcolax] 10 mg RECTAL DAILY PRN 05/30/22 05/30/22 History Allergies Allergy/AdvReac Type Severity Reaction Status Date / Time Sulfa (Sulfonamide AdvReac Agitation Verified 05/30/22 23:16 Antibiotics) Physical Exam Vitals: Vital Signs Temp Pulse Pulse Resp BP Pulse Ox 06/05/22 07:47 82 06/05/22 07:37 80 06/05/22 04:35 97.6 F 83 14 110/67 94 L 06/04/22 19:36 88 06/04/22 19:30 98.8 F 65 15 109/65 100 06/04/22 19:22 87 06/04/22 12:13 80 06/04/22 12:03 80 06/04/22 11:26 98.0 F 73 18 109/63 99 Intake and Output 06/04/22 06/05/22 06/05/22 22:59 06:59 14:59 Output Total 500 1300 Balance -500 -1300 Output: Urine 500 1300 Other: Voiding Method Diaper Incontinent External Catheter Weight 100 kg 98.5 kg - Constitutional General appearance: no acute distress - EENT Eyes: EOMI ENT: hearing grossly normal, normal oropharynx - Neck Neck: no lymphadenopathy Thyroid: bilateral: normal size - Respiratory Respiratory: bilateral: CTA - Cardiovascular Rhythm: regular Heart sounds: abnormal: S1 (Diminished), S2 (Diminished but still audible) Abnormal Heart Sounds: systolic murmur (Ejection systolic, most prominent over aortic valve, late peaking) - Gastrointestinal Distended and somewhat firm, sensation of large underlying mass without margins easily defined General gastrointestinal: distended - Integumentary Bilateral lower extremity hyperpigmentation suggestive of chronic congestion - Musculoskeletal Bilateral 2+ lymphedema - Psychiatric Psychiatric: A&O x's 3, appropriate affect 5-6 cm mass involving the left upper chest/outer margin of the breast. Examination done in presence of female RN. Nontender. Mildly compressible and slightly mobile. Results CBC & Chem 7: 06/05/22 05:35 06/05/22 05:35 Labs: Abnormal Lab Results - Last 24 Hours (Table) 06/04/22 06/04/22 06/05/22 Range/Units 05:38 05:38 05:35 RBC 3.82 L 3.89 L (4.10-5.20) X 10*6/uL Hgb 10.9 L 11.0 L (12.0-15.0) g/dL Hct 35.9 L 36.3 L (37.2-46.3) % MCHC 30.4 L 30.3 L (32.0-37.0) g/dL RDW 15.0 H 15.2 H (11.5-14.5) % Plt Count 109 L 116 L (140-440) X 10*3/uL Plt Count Comment DECREASED A DECREASED A MPV 13.7 H 14.3 H (9.5-12.2) fL Immature Gran # 0.20 H 0.32 H (0.00-0.04) X 10*3/uL Basophils # 0.13 H 0.11 H (0.00-0.10) X 10*3/uL Carbon Dioxide 35.1 H (20.0-27.5) mmol/L Anion Gap 5.90 L (10.00-18.00) mmol/L BUN/Creatinine Ratio 25.13 H (12.00-20.00) Ratio Total Protein 5.2 L (6.2-8.2) g/dL Albumin 3.2 L (3.8-4.9) g/dL Albumin/Globulin Ratio (1.60-3.17) g/dL 06/05/22 Range/Units 05:35 RBC (4.10-5.20) X 10*6/uL Hgb (12.0-15.0) g/dL Hct (37.2-46.3) % MCHC (32.0-37.0) g/dL RDW (11.5-14.5) % Plt Count (140-440) X 10*3/uL Plt Count Comment MPV (9.5-12.2) fL Immature Gran # (0.00-0.04) X 10*3/uL Basophils # (0.00-0.10) X 10*3/uL Carbon Dioxide 34.2 H (20.0-27.5) mmol/L Anion Gap 7.80 L (10.00-18.00) mmol/L BUN/Creatinine Ratio 22.38 H (12.00-20.00) Ratio Total Protein 5.3 L (6.2-8.2) g/dL Albumin 3.0 L (3.8-4.9) g/dL Albumin/Globulin Ratio 1.30 L (1.60-3.17) g/dL Microbiology - Last 24 Hours (Table) 05/31/22 14:52 Blood Culture - Preliminary Blood No Growth after 96 hours Comments: MRI A/P reports reviewed CT scan - chest: report reviewed US - abdomen: report reviewed Assessment and Plan (1) Pelvic mass Narrative/Plan: This is an old finding for the patient. This was initially found by her vice president of sales. Workup so far is as described. She has already been referred to [facility] oncology. She is supposed to have an MRI later this month but this was performed this admission. She states that she'll follow up with him as an outpatient. - Defer to you and oncology for further management. Based on her OVA 1 testing, there is definite risk of malignancy, which actually may be higher now given increase in size of the mass. - Discussed that typically in this situation the patient will be managed with surgery up front by [facility] oncology. The patient however is not sure that she wouldn't want to have surgery given her age. In addition her cardiac issues specifically significant aortic stenosis may preclude surgery without correction. - The patient expressed understanding of the same. She states that she was planning on following up with her ballpoint pens assembler also as an outpatient before making any decisions. - As plan for management is already in place, new intervention from our standpoint is not required Current Visit: No Status: Acute Code(s): R19.00 - INTRA-ABD AND PELVIC SWELLING, MASS AND LUMP, UNSP SITE SNOMED Code(s): 51715629 (2) Breast mass, left Narrative/Plan: Patient was found to have a mass on physical examination. She states that she was told that is the hematoma. However I do not see any imaging in her EMR. Ultrasound will be ordered. Current Visit: Yes Status: Acute Code(s): N63.20 - UNSPECIFIED LUMP IN THE LEFT BREAST, UNSPECIFIED QUADRANT SNOMED Code(s): 20516908 (3) Bicytopenia Narrative/Plan: The patient's counts have shown significant drop in association with acute illness, followed by fairly rapid improvement. 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 This appears to be fairly mild at baseline with significant worsening in case of added stress of acute illness, followed by good resolution. - Check for deficiency states. - As the patient's platelets dropped significantly after her last admission, check HIT antibody Current Visit: Yes Status: Acute Code(s): D75.89 - OTHER SPECIFIED DISEASES OF BLOOD AND BLOOD-FORMING ORGANS SNOMED Code(s): 74286156 Plan: 4 to the admitting service and other consultants for management of other medical problems, including current infection
[2022-06-05] MEDS: AMMONIUM LACTATE 12% CREAM 140 GM TUBE TOPICAL SCH (12:29)
[2022-06-05] MEDS: COLLAGENASE 250 UNIT/GM OINTMENT 30 GM TUBE TOPICAL SCH (12:29)
[2022-06-05] MEDS: FUROSEMIDE 40 MG TAB PO SCH ×2 (14:59→21:01)
[2022-06-05] MEDS: POTASSIUM CHLORIDE ER 20 MEQ TAB.ER PO SCH (14:59)
[2022-06-05] MEDS: CHOLECALCIFEROL 25 MCG (1000 IU) TABLET PO SCH (18:11)
[2022-06-05] MEDS: FERROUS SULFATE 325 MG TAB PO SCH (18:11)
--- NOTE | 2022-06-06 01:08 | PN ---
PROGRESS NOTE SUBJECTIVE: An 82-year-old white female, she has E coli bacteremia. Her repeat blood cultures are negative x96 hours. We are going to send her back to rehab center tomorrow. She has lost a lot of weight with IV Lasix. We are going to switch her back to oral Lasix for discharge. Continues her cephalosporin antibiotics per Dr. Bland. She does not want a HIDA scan as a source of E coli in the blood stream, gallbladder on MRI. She has intraabdominal mass, has spent a long time for which it is unclear what they are going to do with that. If anything Oncology Surgeon down in the [facility], Gynecology Surgeon who deals with cancer. She has severe aortic stenosis. set up for outpatient followup. UTI is cleared up. OBJECTIVE: CARDIOVASCULAR: S1, S2. LUNGS: Clear. GI: Soft. Hematology: Negative Homans. PSYCH: Fair mood and affect. 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 The patient does not want biopsy. Does not want a HIDA scan. She will be sent back to rehab center to follow up with Gynecology/Oncology from the [facility]. MMODL / IJN: [id number] /
--- NOTE | 2022-06-06 07:42 | PN ---
PROGRESS NOTE Sepsis is ruled in, urinary tract infection. DICTATION ENDS HERE MMODL / IJN: [id number] /
[2022-06-06] MEDS: METOPROLOL TARTRATE 25 MG TAB PO SCH ×3 (08:54→21:06)
[2022-06-06] MEDS: POTASSIUM CHLORIDE ER 20 MEQ TAB.ER PO SCH (08:55)
[2022-06-06] MEDS: FUROSEMIDE 40 MG TAB PO SCH ×3 (08:55→21:06)
[2022-06-06] MEDS: SENNOSIDES 8.6 MG TAB PO SCH (08:55)
[2022-06-06] MEDS: AMMONIUM LACTATE 12% CREAM 140 GM TUBE TOPICAL SCH (08:57)
[2022-06-06] MEDS: IPRATROPIUM-ALBUTEROL 3 ML NEB INHALATION SCH ×3 (09:18→20:03)
[2022-06-06] MEDS: FLUTICASONE 110 MCG INHALER INHALATION SCH ×2 (09:18→20:05)
--- NOTE | 2022-06-06 09:18 | DS ---
DISCHARGE SUMMARY DISCHARGE DIAGNOSES: 1. Breast mass, left. 2. Urinary tract infection. 3. Dilated gallbladder. 4. Generalized weakness. 5. Severe aortic stenosis. 6. Diastolic congestive heart failure. 7. Bicytopenia. 8. A 44 cm mass in the abdomen and uterus area, followed by Oncology for possible ovarian cancer. 9. Escherichia coli sepsis. DISCHARGE MEDICATIONS: 1. Lac-Hydrin cream topically daily. 2. Vitamin D3 of 1000 international units daily. 3. Ferrous sulfate 325 daily. 4. Senokot 17.2 mg daily. 5. Qvar 80 mcg Redi inhaler 1 puff b.i.d. 6. DuoNeb updraft q.i.d. 7. Atrovent nasal spray daily both nostrils 1 spray. 8. Acetaminophen 650 every 4. 9. Collagenase ointment topically daily. 10.Milk of magnesia concentrate 7200 mg p.o. daily for constipation. 11.Biofreeze topically t.i.d. to the left knee. 12.Fleet Enema p.r.n. constipation. 13.Dulcolax 10 mg rectally daily p.r.n. for constipation. 14.Ventolin HFA inhaler 2 puffs q.4 hours p.r.n. for shortness of breath. 15.Lasix 40 mg t.i.d. 16.Potassium chloride (K-Dur) 20 mEq daily. 17.Lopressor 75 mg t.i.d. 18.Ceftin 500 b.i.d. for 10 days. CONDITION: Stable. PROGNOSIS: Guarded. FOLLOWUP: Follow up with Dr. Hollis for severe aortic stenosis. Follow up with Gynecology- Oncology in [place] for possible ovarian cancer or abdominal tumor. She was also found to have bicytopenia secondary to possible myelodysplastic disorder. She improved with IV Lasix, lost a lot of water weight. She will probably need aortic stenosis surgery in the future and possibly an ovarian mass taken out also. Follow up with Dr. Hollis and Dr. Uribe in the sn[place]. MMODL / IJN: [id number] /
--- NOTE | 2022-06-06 09:40 | CA ---
Transthoracic Echo Report Name: Birgit Lancaster Age: 82 Gender: F : 1940 Exam Date: 06/03/2022 12:34 Exam Location: [facility] Ht (in): 65 Wt (lb): 228 Ordering Physician: Vickey Uirbe MD Attending/Referring Phys: Patient Care Technician Instructor Lesley Silver RDCS Procedure CPT: Indications: vegetation, positive blood cultures Cardiac Hx: Technical Quality: Contrast 1: Total Dose (mL): Contrast 2: Total Dose (mL): MEASUREMENTS (Male / Female) Normal Values 2D ECHO LV Diastolic Diameter PLAX 3.6 cm 4.2 - 5.9 / 3.9 - 5.3 cm LV Systolic Diameter PLAX 1.5 cm IVS Diastolic Thickness 1.4 cm 0.6 - 1.0 / 0.6 - 0.9 cm LVPW Diastolic Thickness 1.6 cm 0.6 - 1.0 / 0.6 - 0.9 cm LV Relative Wall Thickness 0.8 RV Internal Dim ED PLAX 3.4 cm LA Volume 107.9 cm??? 18 - 58 / 22 - 52 cm??? M-MODE MV E Point Septal Separation 0.2 cm DOPPLER AV Peak Velocity 429.9 cm/s AV Peak Gradient 73.9 mmHg AV Mean Velocity 324.1 cm/s AV Mean Gradient 46.1 mmHg AV Velocity Time Integral 97.5 cm LVOT Peak Velocity 161.5 cm/s LVOT Peak Gradient 10.4 mmHg LVOT Velocity Time Integral 38.7 cm MV Peak Velocity 160.6 cm/s MV Peak Gradient 10.3 mmHg MV Mean Velocity 73.8 cm/s MV Mean Gradient 3.0 mmHg MV Velocity Time Integral 31.7 cm MV Area PHT 2.9 cm??? Mitral E Point Velocity 176.3 cm/s Mitral A Point Velocity 49.0 cm/s Mitral E to A Ratio 3.6 MV Deceleration Time 263.1 ms MV E' Velocity 4.4 cm/s Mitral E to MV E' Ratio 40.5 TR Peak Velocity 419.1 cm/s TR Peak Gradient 70.2 mmHg Right Ventricular Systolic Press 75.2 mmHg FINDINGS Left Ventricle Left ventricular ejection fraction is estimated at 50-55%. Moderately increased left ventricular wall thickness. Right Ventricle Normal right ventricular size and function. Right ventricular systolic pressure estimated at 75 mm hg. Severe pulmonary hypertension. Right Atrium Normal right atrial size. Left Atrium Severely increased left atrial volume. Mildly increased left atrial area. Mitral Valve Structurally normal mitral valve. Moderate thickening/calcification of the anterior mitral valve leaflet. Aortic Valve Bioprosthetic aortic valve. Severe aortic stenosis with peak gradient 74 mmHg, mean gradient 46 mmHg,mild aortic regurgitation. 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 Moderate tricuspid regurgitation. Pulmonic Valve Structurally normal pulmonic valve. Pericardium Normal pericardium. Aorta Normal size aortic root and proximal ascending aorta. CONCLUSIONS Normal LV size with moderate concentric LVH and preserved contractility. Bioprosthetic aortic valve is calcified with the severe stenosis mean gradient of 46 mmHg. Mild aortic regurgitation. Severe pulmonary hypertension noted. No clearcut vegetation but if suspected consider transesophageal echo Previewed by: Dr. Olivia Palafox MD (Electronically Signed) Final Date: 06 June 2022 09:39
[2022-06-06 11:31] LABS: % Iron Saturation 15.89 (12.00-45.00)
[2022-06-06] MEDS: COLLAGENASE 250 UNIT/GM OINTMENT 30 GM TUBE TOPICAL SCH (20:04)
[2022-06-06] MEDS: FERROUS SULFATE 325 MG TAB PO SCH (20:05)
[2022-06-06] MEDS: CHOLECALCIFEROL 25 MCG (1000 IU) TABLET PO SCH (20:05)
[2022-06-07] MEDS: IPRATROPIUM-ALBUTEROL 3 ML NEB INHALATION SCH ×2 (08:38→12:05)
[2022-06-07] MEDS: FLUTICASONE 110 MCG INHALER INHALATION SCH (08:38)
[2022-06-07] MEDS: SENNOSIDES 8.6 MG TAB PO SCH (09:10)
[2022-06-07] MEDS: METOPROLOL TARTRATE 25 MG TAB PO SCH (09:11)
[2022-06-07] MEDS: FUROSEMIDE 40 MG TAB PO SCH (09:11)
[2022-06-07] MEDS: POTASSIUM CHLORIDE ER 20 MEQ TAB.ER PO SCH (09:12)
[2022-06-07] MEDS: AMMONIUM LACTATE 12% CREAM 140 GM TUBE TOPICAL SCH (09:13)
[2022-06-07] MEDS: COLLAGENASE 250 UNIT/GM OINTMENT 30 GM TUBE TOPICAL SCH (09:14)
[2022-06-07 11:46] VITALS: BP 117/58; RESP 16; TEMP 98.4
[2022-06-07 12:15] VITALS: PULSE 75
[2022-06-07 12:24] LABS: Heparin Induced Plt Abs 0.161 OD (<0.4)
[2022-06-08 06:48] LABS: Methylmalonic Acid 0.46 umol/L (<0.40)
== END 2022-06-07 14:10 | disposition home or self-care (01) | DRG 871 ==
LOC: EC 19:18 → 4SSUR 20:52 → 5NMEDONC 22:46
PROVIDERS: ADMIT Family Medicine; ATTEND Family Medicine
DX: A41.51 Sepsis due to Escherichia coli [E. coli] (principal); I50.33 Acute on chronic diastolic (congestive) heart failure; N39.0 Urinary tract infection, site not specified; I48.19 Other persistent atrial fibrillation; I48.92 Unspecified atrial flutter; D46.9 Myelodysplastic syndrome, unspecified; D69.6 Thrombocytopenia, unspecified; N63.0 Unspecified lump in unspecified breast; I25.10 Atherosclerotic heart disease of native coronary artery without angina pectoris; I87.2 Venous insufficiency (chronic) (peripheral); M17.11 Unilateral primary osteoarthritis, right knee; N83.9 Noninflammatory disorder of ovary, fallopian tube and broad ligament, unspecified; R09.02 Hypoxemia; I11.0 Hypertensive heart disease with heart failure; I35.0 Nonrheumatic aortic (valve) stenosis; Z20.822 Contact with and (suspected) exposure to COVID-19; R29.6 Repeated falls; Z87.891 Personal history of nicotine dependence; Z95.2 Presence of prosthetic heart valve; Z91.81 History of falling; Z74.01 Bed confinement status; Z79.899 Other long term (current) drug therapy; Z88.2 Allergy status to sulfonamides
CPT/HCPCS: 36415; 71045; 71250; 72197; 74183; 76770; 80048; 80053; 81001; 82607; 82728; 82747; 83540; 83550; 83605; 83735; 83880; 83921; 85025; 85610; 85730; 86022; 86304; 87040; 87077; 87086; 87186; 87635; 93005; 93306; 94640; 96365; 96366; 96375; 99285

== ENCOUNTER 2023-01-21 21:13 | Emergency (ER) | payer MEDICARE ==
[2023-01-21 21:17] LABS: Glucose,Whole Blood 145 mg/dL (70-110)
[2023-01-21 23:11] VITALS: RESP 14; TEMP 97.3
--- NOTE | 2023-01-21 23:51 | ED ---
General Adult HPI - General Stated complaint: cardiac arrest Source: EMS Mode of arrival: EMS Limitations: altered mental status, physical limitation - History of Present Illness Initial comments: This is an 82-year-old female was brought into emergency department from EMS in cardiac arrest. It was reported the patient was admitted in this is living facility and had an aspiration event. Fire was called and when EMS arrived, the patient was found to be in PEA arrest. It was reported the patient was initially a DO NOT RESUSCITATE however the daughter was contacted immediately from the facility and change this DO NOT RESUSCITATE status. CPR was started immediately. The patient was transported into the emergency department. The patient reportedly had lost pulses and gain them intermittently throughout the transport. The patient arrived in cardiac arrest with PEA. No further history was obtained at this time. The patient had received 5 rounds of epinephrine care continued, in PEA. - Related Data Home Medications Medication Instructions Recorded Confirmed Ipratropium Bowman 0.06%Nasal 2 spr EA NOSTRIL BID PRN 04/12/22 05/30/22 [Atrovent Nasal 0.06%] Acetaminophen Tab [Tylenol] 650 mg PO Q4H PRN 05/30/22 05/30/22 Ammonium Lactate Cream [Lac-Hydrin 1 applic TOPICAL DAILY 05/30/22 05/30/22 12% Cream] Beclomethasone Dipropionate [Qvar 1 puff INHALATION RT-BID@0800,169905/30/22 05/30/22 80mcg Redihaler] Cholecalciferol [Vitamin D3 (25 100 mcg PO DAILY@169905/30/22 05/30/22 Mcg = 1000 Iu)] Collagenase [Santyl Ointment] 1 applic TOPICAL DAILY 05/30/22 05/30/22 Ferrous Sulfate [Iron (65 MG 325 mg PO DAILY@0 05/30/22 05/30/22 Elemental)] Furosemide [Lasix] 40 mg PO DAILY@0800 05/30/22 05/30/22 Ipratropium-Albuterol Nebulize 3 ml INHALATION RT-TID@08,,05/30/22 05/30/22 [Duoneb 0.5 mg-3 mg/3 ml Soln] Magnesium Hydroxide [Milk of 7,200 mg PO DAILY PRN 05/30/22 05/30/22 Magnesia Concentrate] Menthol [Biofreeze] 1 applic TOPICAL TID PRN 05/30/22 05/30/22 Na Phos,M-B/Na Phos,Di-Ba [Fleet 133 ml RECTAL DAILY PRN 05/30/22 05/30/22 Adult] Sennosides [Senokot] 17.2 mg PO DAILY@0800 05/30/22 05/30/22 bisacodyL [Dulcolax] 10 mg RECTAL DAILY PRN 05/30/22 05/30/22 Previous Rx's Medication Instructions Recorded Albuterol Nebulized [Ventolin 2.5 mg INHALATION RT-QID PRN ml 04/17/22 Nebulized] cefUROXime axetiL [Ceftin] 500 mg PO BID 10 Days #20 tab 06/05/22 Furosemide [Lasix] 40 mg PO TID tab 06/06/22 Metoprolol Tartrate [Lopressor] 75 mg PO TID@0800,1400,2100 tab 06/06/22 Potassium Chloride ER [K-Dur 20] 20 meq PO DAILY tab 06/06/22 Allergies Allergy/AdvReac Type Severity Reaction Status Date / Time Sulfa (Sulfonamide AdvReac Agitation Verified 01/21/23 23:01 Antibiotics) Review of Systems ROS Statement: Those systems with pertinent positive or pertinent negative responses have been documented in the HPI. ROS Other: All systems not noted in ROS Statement are negative. Past Medical History Past Medical History: Atrial Fibrillation, Atrial Flutter, Hypertension, Musculoskeletal Disorder, Osteoarthritis (OA) Additional Past Medical History / Comment(s): History of severe arthritis at the right knee History of Any Multi-Drug Resistant Organisms: MRSA Date of last positivie culture/infection: 10/04/22 MDRO Source:: Right Leg Past Surgical History: Ablation, Cardiac Valve Replacement, Orthopedic Surgery Additional Past Surgical History / Comment(s): open heart, valve replacement, history of aortic valve replacement, tricuspid valve repair and mitral valve repair in 2007 completed at [facility] by Dr. Mukund Melton Past Anesthesia/Blood Transfusion Reactions: No Reported Reaction Past Psychological History: No Psychological Hx Reported Smoking Status: Former smoker Past Alcohol Use History: Occasional Past Drug Use History: None Reported - Past Family History Mother Family Medical History: Congestive Heart Failure (CHF) Additional Family Medical History / Comment(s): from congestive heart failure at age 83 Father Additional Family Medical History / Comment(s): from septic shock at age 85 Sister(s) Additional Family Medical History / Comment(s): She had 2 sisters one at age 20 from a blood clot and the other at age 42 in a motor vehicle accident. General Exam Limitations: altered mental status, physical limitation General appearance: other (Pulseless, apneic, in cardiac arrest) Head exam: Present: atraumatic, normocephalic Eye exam: Present: other (Pupils dilated and fixed). Absent: PERRL, EOMI ENT exam: Present: other (Intubated with copious amounts of bloody, frothy suptum in ET tube) Respiratory exam: Present: other (Pulseless, apneic, in cardiac arrest) Cardiovascular Exam: Present: other (Pulseless, apneic, in cardiac arrest) GI/Abdominal exam: Present: soft, normal bowel sounds Extremities exam: Present: normal inspection Back exam: Present: normal inspection Neurological exam: Present: other (Pulseless, apneic, in cardiac arrest) Psychiatric exam: Present: other (Pulseless, apneic, in cardiac arrest) Skin exam: Present: warm, dry Course Vital Signs 01/21/23 01/21/23 21:13 22:06 Temperature 97.3 F L Respiratory 14 Rate Fraction of 100 Inspired Oxygen (FIO2) EKG Findings - EKG Comments: EKG Findings:: An EKG was obtained once patient was made DNR once again and ROSC was achieved. EKG was interpreted by myself showing a rate of 52, QRS duration of 213, QTC of 364. This EKG showed a wide complex irregular rhythm without any ST segment elevation or depression noted. Medical Decision Making - Medical Decision Making Was pt. sent in by a medical professional or institution (, PA, FUSING LINE INSPECTOR, urgent care, hospital, or custodial...) When possible be specific @ -No Did you speak to anyone other than the patient for history (EMS, parent, family, police, friend...)? What history was obtained from this source @ -Yes, EMS who stated that the patient had a possible aspiration episode and went into PEA arrest. They confirm that the patient had 5 rounds of epinephrine given and CPR was continued throughout the transport. Did you review nursing and triage notes (agree or disagree)? Why? @ -I reviewed and agree with nursing and triage notes Were old charts reviewed (outside hosp., previous admission, EMS record, old EKG, old radiological studies, urgent care reports/EKG's, custodial records)? Report findings @ -No old charts were reviewed Differential Diagnosis (chest pain, altered mental status, abdominal pain women, abdominal pain men, vaginal bleeding, weakness, fever, dyspnea, syncope, headache, dizziness, GI bleed, back pain, seizure, CVA, palpatations, mental health)? @ -Cardiac arrest, PA, aspiration EKG interpreted by me (3pts min.). @ -As above X-rays interpreted by me (1pt min.). @ -None done CT interpreted by me (1pt min.). @ -None done U/S interpreted by me (1pt. min.). @ -None done What testing was considered but not performed or refused? (CT, X-rays, U/S, labs)? Why? @ -None What meds were considered but not given or refused? Why? @ -None Did you discuss the management of the patient with other professionals (professionals i.e. , PA, FUSING LINE INSPECTOR, lab, RT, psych nurse, social media assistant, speech pathology teacher, teacher, flight deck officer, nurse outreach case manager)? Give summary @ -No Was smoking cessation discussed for >3mins.? @ -No Was critical care preformed (if so, how long)? @ -Yes, see above Were there social determinants of health that impacted care today? How? (Homelessness, low income, unemployed, alcoholism, drug addiction, transportation, low edu. Level, literacy, decrease access to med. care, residential, rehab)? @ -No Was there de-escalation of care discussed even if they declined (Discuss DNR or withdrawal of care, Hospice)? DNR status @ -Yes, the patient was initially DO NOT RESUSCITATE but was escalated at the facility when the patient arrived, the daughter was called and was de-escalation into a DO NOT RESUSCITATE. What co-morbidities impacted this encounter? (DM, HTN, Smoking, COPD, CAD, Cancer, CVA, ARF, Chemo, Hep., AIDS, mental health diagnosis, sleep apnea, morbid obesity)? @ -None Was patient admitted / discharged? Hospital course, mention meds given and route, prescriptions, significant lab abnormalities, going to OR and other pertinent info. @ -The patient was brought into the emergency department and was immediately taken to the resuscitation bay and cardiac arrest. CPR was continued and it did show PEA. The patient was given a total of 3 rounds of epinephrine and did have one shot administered when the patient went into a pulseless V. tach. Due to the patient's extensive amount of CPR being given, around 55 minutes, the patient's daughter was once again contacted. I did speak with her and she ag aspen to discontinue efforts and to make the patient a DO NOT RESUSCITATE once again. Once this was done, the patient did have ROSC obtained momentarily but a bedside ultrasound was performed by myself and did not show a rhythm and perfusion sustainable for life. The patient did have an episode of V. fib momentarily as well but then became bradycardic and asystole. Time of was called at 2142. The patient's daughter was at the bedside and was told of the events. They were appreciative of the care and had all their questions answered appropriate. The patient's primary care physician was contacted and told of the expiration and the medical billing manager was also made aware but was not a medical billing manager case. Undiagnosed new problem with uncertain prognosis? @ -No Drug Therapy requiring intensive monitoring for toxicity (Heparin, Nitro, Insulin, Cardizem)? @ -No Were any procedures done? @ -No Diagnosis/symptom? @ -Cardiac arrest Acute, or Chronic, or Acute on Chronic? @ -Acute Uncomplicated (without systemic symptoms) or Complicated (systemic symptoms)? @ -Complicated Side effects of treatment? @ -No Exacerbation, Progression, or Severe Exacerbation? @ -No Poses a threat to life or bodily function? How? (Chest pain, [place], [place], pneumonia, PE, COPD, DKA, ARF, appy, cholecystitis, CVA, Diverticulitis, Homicidal, Suicidal, threat to staff... and all critical care pts) @ -Yes, patient - Lab Data Lab Results 01/21/23 Range/Units 21:15 POC Glucose (mg/dL) 145 H (70-110) mg/dL POC Glu Delivery Representative ID Kory Pau Critical Care Time Critical Care Time: Yes Total Critical Care Time: 35 Disposition Clinical Impression: Cardiac arrest Disposition: Condition: Critical Is patient prescribed a controlled substance at d/c from ED?: No Referrals: None,Stated [Primary Care Provider] - 1-2 days Time of Disposition: 21:43 Preliminary Cause of : Aspiration, cardiac arrest
== END 2023-01-22 00:48 | disposition expired ==
LOC: EC 21:13
DX: I46.9 Cardiac arrest, cause unspecified (principal); I48.91 Unspecified atrial fibrillation; I10 Essential (primary) hypertension; M19.90 Unspecified osteoarthritis, unspecified site; Z87.891 Personal history of nicotine dependence; Z79.1 Long term (current) use of non-steroidal anti-inflammatories (NSAID); Z79.899 Other long term (current) drug therapy; Z88.2 Allergy status to sulfonamides
CPT/HCPCS: 36415; 92950; 93005